=== PATIENT | male | born 1950 | race American Indian/Alaskan Native ===

== ENCOUNTER 2021-06-01 05:08 | Observation (INO) | payer MEDICARE ==
[2021-06-01] MEDS ORDERED: diphenhydrAMINE 50 MG/ML VIAL IV STA (05:39)
[2021-06-01] MEDS ORDERED: SODIUM CHLORIDE 0.9% 1000 ML 1,000 ML IV ONE (05:39)
[2021-06-01] MEDS ORDERED: FAMOTIDINE 20 MG/2 ML INJ IV ONE (05:39)
[2021-06-01] MEDS ORDERED: dexAMETHasone 4 MG/ML VIAL IV ONE (05:39)
--- NOTE | 2021-06-01 06:03 | Event Note ---
ED Screening Note ED Screening Note: 21-year-old [place]ian male [facility] emerge department complaining of waking up this morning with swelling to his left side of his tongue of unknown etiology. No odynophagia or dysphagia, no stridor no shortness of breath no wheezing, no lip swelling. Reports no known provocative factors to trigger the swelling but has had a history of angioedema in the past with no etiology over a year ago presents [facility] emerge department see treatments of the neck it is best to get the last time when he waited a considerable amount of time This initial assessment/diagnostic orders/clinical plan/treatment(s) is/are subject to change based on patients health status, clinical progression and re- assessment by fellow clinical providers in the ED. Further treatment and workup at subsequent clinical providers discretion. Patient/guardian urged not to elope from the ED as their condition may be serious if not clinically assessed and managed. Initial orders include: IV fluids and angioedema treat
--- NOTE | 2021-06-01 06:55 | Emergency Department Report ---
ED General Adult HPI - General Chief complaint: Allergic Reaction Stated complaint: POSS ALLERGIC REACTION PUI?: No Time Seen by Provider: 06/01/21 06:36 Source: patient, RN notes reviewed Mode of arrival: Ambulatory Limitations: No Limitations - History of Present Illness Initial comments: The patient was evaluated in the emergency department for symptoms described in the history of present illness. He/she was evaluated in the context of the global COVID-19 pandemic, which necessitated consideration that the patient might be at risk for infection with the virus that causes COVID-19. Institutional protocols and algorithms that pertain to the evaluation of patients at risk for COVID-19 are in a state of rapid change based on information released by regulatory bodies including the CDC and federal and state organizations. These policies and algorithms were followed during the patient's care in the emergency department. Please note that these policies, procedures and recommendations changed on a rapid basis. The patient is a 71-year-old gentleman. He has a history of hypertension and end-stage renal disease on hemodialysis. He does not know the name of his managing attorney. He is due for hemodialysis today. He presents to the ER today with a complaint of painless left-sided tongue swelling. This has been going on for a few hours. He reports having had this about a year ago. He does not know the name of his medications, but that he believes that he takes MONICO inhibitors. He denies additional injuries and complaints. He states that he feels like he is at his baseline. He reports that when he had this tongue swelling about a year ago, he does not recall receiving a specific diagnosis. He otherwise feels like he is at his baseline. He reports that he goes to [facility] dialysis on [facility] for hemodialysis, but he does not recall the name of his primary managing attorney. -: hour(s) Severity scale (0 -10): 0 Consistency: constant Improves with: none Worsens with: none Associated Symptoms: denies other symptoms - Related Data Allergies Allergy/AdvReac Type Severity Reaction Status Date / Time No Known Allergies Allergy Unverified 01/01/14 15:00 ED Review of Systems ROS: Stated complaint: POSS ALLERGIC REACTION Other details as noted in HPI Comment: All other systems reviewed and negative ED Past Medical Hx - Past Medical History Previous Medical History?: Yes Hx Hypertension: Yes Hx Renal Disease: Yes (ESRD HD MWF) - Surgical History Past Surgical History?: Yes Additional Surgical History: Dialysis Acess left arm ED Physical Exam - General Limitations: No Limitations General appearance: alert, in no apparent distress - Head Head exam: Present: atraumatic, normocephalic - Eye Eye exam: Present: normal appearance, EOMI. Absent: nystagmus - ENT ENT exam: Present: normal exam, normal orophraynx, mucous membranes moist, normal external ear exam, other (The patient is speaking full sentences. He is not stridulous. There is minimal swelling noted to the lateral aspect of the tongue.) - Neck Neck exam: Present: normal inspection, full ROM. Absent: tenderness, meningismus - Respiratory Respiratory exam: Present: normal lung sounds bilaterally. Absent: respiratory distress, wheezes, rales, rhonchi, stridor, decreased breath sounds - Cardiovascular Cardiovascular Exam: Present: regular rate, normal rhythm, normal heart sounds. Absent: bradycardia, tachycardia, irregular rhythm, systolic murmur, diastolic murmur, rubs, gallop - GI/Abdominal GI/Abdominal exam: Present: soft. Absent: distended, tenderness, guarding, rebound, rigid, pulsatile mass - Rectal Rectal exam: Present: deferred - Extremities Exam Extremities exam: Present: normal inspection, full ROM, other (2+ pulses noted in the bilateral upper extremities. There is a left upper extremity fistula noted, without redness, pus or streaking. An appropriate thrill is appreciated). Absent: calf tenderness - Back Exam Back exam: Present: normal inspection, full ROM. Absent: tenderness, CVA tenderness (R), CVA tenderness (L), paraspinal tenderness, vertebral tenderness - Neurological Exam Neurological exam: Present: alert, oriented X3, normal gait, other (No facial droop. Tongue midline. Extraocular movements intact bilaterally. Facial sensation intact to light touch in V1, V2, V3 distribution bilaterally. 5 and a 5 strength in 4 extremities. Sensation intact to light touch in 4 extremities.). Absent: motor sensory deficit - Psychiatric Psychiatric exam: Present: normal affect, normal mood - Skin Skin exam: Present: warm, dry, intact, normal color. Absent: rash ED Course Vital Signs 06/01/21 06/01/21 05:20 05:32 Temperature 98.2 F Pulse Rate 80 Respiratory 20 Rate Blood Pressure 179/48 146/44 [Right] O2 Sat by Pulse 98 Oximetry - Reevaluation(s) Reevaluation #1: 06/01/21 08:34 Differential diagnosis, including but not limited to: Angioedema, idiopathic versus MONICO inhibitor related, end-stage renal disease, hyperkalemia, azotemia and uremia Assessment and plan: 71-year-old gentleman with a complaint of painless left- sided tongue swelling. He has minimal lateral tongue swelling on my examination. He is phonating in complete sentences, and is not stridulous and protecting his airway. Uvula is midline, soft, and there does not appear to be other involvements in the oral structures. He was ordered for appropriate medications prior to my personal evaluation. Contacted his hemodialysis center ([facility] center in [place], [place] COVID-19 info: [id number] Located in: [facility] Address: [address] [place] [address] Hours: Open ? Closes 7PM ) They report his managing attorney is Dr. Mata, who does not currently have privileges at this hospital. We have reached out to our dialysis team construction stonemason. We anticipate admitting this patient to the medical service for treatment of hyperkalemia, and observation for angioedema of the tongue. Awaiting callback from nephrology 06/01/21 08:58 Discussed the patient's history, physical, laboratory studies and clinical impression with nephrology on-call, Dr. Zarate. She will follow in consultation and arrange for hemodialysis. Hospital physician, Dr. Brannon Berrios to admit to [facility] ED Medical Decision Making - Lab Data Result diagrams: 06/01/21 07:00 06/01/21 07:00 Vital Signs 06/01/21 06/01/21 05:20 05:32 Temperature 98.2 F Pulse Rate 80 Respiratory 20 Rate Blood Pressure 179/48 146/44 [Right] O2 Sat by Pulse 98 Oximetry Lab Results 06/01/21 06/01/21 Range/Units 07:00 07:00 WBC 6.2 (4.5-11.0) K/mm3 RBC 3.25 L (3.65-5.03) M/mm3 Hgb 9.9 L (11.8-15.2) gm/dl Hct 31.1 L (35.5-45.6) % MCV 96 H (84-94) fl MCH 31 (28-32) pg MCHC 32 (32-34) % RDW 15.3 H (13.2-15.2) % Plt Count 355 (140-440) K/mm3 Sodium 140 (137-145) mmol/L Potassium 6.3 H* (3.6-5.0) mmol/L Chloride 101.9 (98-107) mmol/L Carbon Dioxide 20 L (22-30) mmol/L Anion Gap 24 mmol/L BUN 52 H (9-20) mg/dL Creatinine 12.0 H (0.8-1.3) mg/dL Estimated GFR 5 ml/min BUN/Creatinine Ratio 4 % Glucose 84 (75-100) mg/dL Calcium 8.0 L (8.4-10.2) mg/dL - EKG Data -: EKG Interpreted by Sd EKG shows normal: sinus rhythm - EKG Data 06/01/21 09:10 The EKG is interpreted at 08: 48 Sinus rhythm, rate 60 bpm. Normal axis, normal P wave axis, poor R wave progression, symmetric peaked T waves V2 V3, first-degree AV block, high left v entricular voltage left ventricular hypertrophy. Abnormal EKG. Not a STEMI. - Radiology Data Radiology results: report reviewed, image reviewed CHEST 1 VIEW INDICATION: esrd tongue swollen. COMPARISON: None FINDINGS: Support devices: None. Heart: Within normal limits. Lungs/Pleura: No acute air space or interstitial disease. No pleural abnormality or pneumothorax. Additional findings: None. IMPRESSION: No acute findings. Signer Name: Trevor Stewart Jr, MD Signed: 06/01/2021 6:31 AM Workstation Name: [id number] Critical care attestation.: If time is entered above; I have spent that time in minutes in the direct care of this critically ill patient, excluding procedure time. ED Disposition Clinical Impression: ESRD (end stage renal disease), Hyperkalemia, Angioedema, HTN (hypertension), Uremia Disposition: ADMITTED INPATIENT Is pt being admited?: Yes Does the pt Need Aspirin: No Condition: Good Instructions: Hypertension (ED) Referrals: PRIMARY CARE, [Primary Care Provider] - 3-5 Days
[2021-06-01 07:28] LABS: Hematocrit 31.1 % (35.5-45.6); Hemoglobin 9.9 gm/dl (11.8-15.2); Mean Corpuscular HGB Conc 32 % (32-34); Mean Corpuscular Volume 96 fl (84-94); Platelet Count 355 K/mm3 (140-440); Red Blood Count 3.25 M/mm3 (3.65-5.03); Red Cell Distribution Width 15.3 % (13.2-15.2)
--- NOTE | 2021-06-01 07:35 | XRay Report ---
CHEST 1 VIEW INDICATION: esrd tongue swollen. COMPARISON: None FINDINGS: Support devices: None. Heart: Within normal limits. Lungs/Pleura: No acute air space or interstitial disease. No pleural abnormality or pneumothorax. Additional findings: None. IMPRESSION: No acute findings. Signer Name: Trevor Stewart Jr, MD Signed: 06/01/2021 7:31 AM Workstation Name: [id number]
[2021-06-01] MEDS ORDERED: SODIUM CHLORIDE 0.9% 100 ML IV PRN (09:00)
[2021-06-01] MEDS ORDERED: CALCIUM GLUCONATE 1,000 MG in SODIUM CHLORIDE 0.9% 100 ML IV ONE (09:10)
[2021-06-01] MEDS ORDERED: INSULIN REGULAR, HUMAN 100 UNITS/1 ML IV ONE (09:11)
[2021-06-01] MEDS ORDERED: DEXTROSE 10% *Hypoglycemia IV STA (09:11)
[2021-06-01] MEDS ORDERED: NALOXONE 0.4 MG/1 ML INJ IV PRN (10:00)
[2021-06-01] MEDS ORDERED: ONDANSETRON 4 MG/2 ML INJ IV PRN (10:00)
[2021-06-01] MEDS ORDERED: ACETAMINOPHEN 325 MG TAB PO PRN (10:00)
[2021-06-01] MEDS ORDERED: oxyCODONE /ACETAMINOPHEN 5-325MG TAB PO PRN (10:00)
[2021-06-01] MEDS ORDERED: CALC GLUCONATE 1GM/NS 100 ML 1 GM/100 ML BAG IV ONE (11:00)
[2021-06-01] MEDS ORDERED: ALBUTEROL 2.5 MG/3 ML NEBU IH PRN (11:00)
[2021-06-01] MEDS ORDERED: diphenhydrAMINE 25 MG CAP PO PRN (11:43)
--- NOTE | 2021-06-01 11:55 | History and Physical Report ---
History of Present Illness Date of examination: 06/01/21 Date of admission: 06/01/21 08:52 Chief complaint: Tongue swelling History of present illness: Patient is a 71-year-old male with past medical history of hypertension, end- stage renal disease on hemodialysis prior history of angioedema of the tongue who presents to the ER today with complaint of painless left-sided tongue swelling. He said it had been going on for a few hours. He reports having had this about a year ago. He does not know the name of his medications, but that he believes that he takes MONICO inhibitors. He denies additional injuries and complaints. He states that he feels like he is at his baseline. He reports that when he had this tongue swelling about a year ago, he does not recall receiving a specific diagnosis. He otherwise feels like he is at his baseline. 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 Past History Past Medical History: ESRD, hyperlipidemia Past Surgical History: Other (fistula) Social history: no significant social history Family history: no significant family history Medications and Allergies Allergies Allergy/AdvReac Type Severity Reaction Status Date / Time No Known Allergies Allergy Unverified 01/01/14 15:00 Active Meds: Active Medications Acetaminophen (Acetaminophen 325 Mg Tab) 650 mg PO Q4H PRN PRN Reason: Pain MILD(1-3)/Fever >100.5/CARREON Albuterol (Albuterol 2.5 Mg/3 Ml Nebu) 2.5 mg IH Q3HRT PRN PRN Reason: Shortness Of Breath Diphenhydramine HCl (Diphenhydramine 25 Mg Cap) 25 mg PO Q6H PRN PRN Reason: Itching Famotidine (Famotidine 20 Mg/2 Ml Inj) 20 mg IV QDAY MAMIE Sodium Chloride (Nacl 0.9%) 100 mls @ 999 mls/hr IV RADHA PRN PRN Reason: Hypotension Naloxone HCl (Naloxone 0.4 Mg/1 Ml Inj) 0.1 mg IV Q2MIN PRN PRN Reason: Res Rate </= 8 or 02 SAT < 92% Ondansetron HCl (Ondansetron 4 Mg/2 Ml Inj) 4 mg IV Q8H PRN PRN Reason: Nausea And Vomiting Oxycodone/Acetaminophen (Oxycodone /Acetaminophen 5-325mg Tab) 1 tab PO Q6H PRN PRN Reason: Pain, Moderate (4-6) Prednisone (Prednisone 20 Mg Tab) 20 mg PO QDAY MAMIE Senna (Sennosides 8.6 Mg Tab) 8.6 mg PO Q12HR MAMIE Sodium Chloride (Sodium Chloride 0.9% 10 Ml Flush Syringe) 10 ml IV BID MAMIE Sodium Chloride (Sodium Chloride 0.9% 10 Ml Flush Syringe) 10 ml IV PRN PRN PRN Reason: LINE FLUSH Review of Systems All systems: negative Ears, nose, mouth and throat: swelling in throat Cardiovascular: no chest pain, no orthopnea, no palpitations, no rapid/irregular heart beat, no edema, no syncope, no lightheadedness, no shortness of breath Respiratory: no shortness of breath, no dyspnea on exertion Exam - Physical Exam Narrative exam: VITAL SIGNS: Reviewed. GENERAL: The patient appears normally developed, missing dentition vital signs as documented. HEAD: No signs of head trauma. EYES: Pupils are equal. Extraocular motions intact. EARS: Hearing grossly intact. MOUTH: Oropharynx is normal. NECK: No adenopathy, no JVD. CHEST: Chest with clear breath sounds bilaterally. No wheezes, rales, or rhonchi. CARDIAC: Regular rate and rhythm. S1 and S2, without murmurs, gallops, or rubs. VASCULAR: No Edema. Peripheral pulses normal and equal in all extremities. ABDOMEN: Soft, non tender and non distended. No rebound or guarding, and no masses palpated. Bowel Sounds normal. MUSCULOSKELETAL: Good range of motion of all major joints. Extremities without clubbing, cyanosis or edema. NEUROLOGIC EXAM: Alert and oriented x 3 No focal sensory or strength deficits. Speech normal. Follows commands. PSYCHIATRIC: Mood normal. SKIN: detail exam as documented in skin assessment - Constitutional Vitals: Temp Pulse Resp BP Pulse Ox 98.2 F 80 20 146/44 98 06/01/21 05:20 06/01/21 05:20 06/01/21 05:20 06/01/21 05:32 06/01/21 05:20 Results - Labs CBC & Chem 7: 06/01/21 07:00 06/01/21 07:00 Labs: Laboratory Last Values WBC 6.2 K/mm3 (4.5-11.0) 06/01/21 07:00 RBC 3.25 M/mm3 (3.65-5.03) L 06/01/21 07:00 Hgb 9.9 gm/dl (11.8-15.2) L 06/01/21 07:00 Hct 31.1 % (35.5-45.6) L 06/01/21 07:00 MCV 96 fl (84-94) H 06/01/21 07:00 MCH 31 pg (28-32) 06/01/21 07:00 MCHC 32 % (32-34) 06/01/21 07:00 RDW 15.3 % (13.2-15.2) H 06/01/21 07:00 Plt Count 355 K/mm3 (140-440) 06/01/21 07:00 Sodium 140 mmol/L (137-145) 06/01/21 07:00 Potassium 6.3 mmol/L (3.6-5.0) H* 06/01/21 07:00 Chloride 101.9 mmol/L (98-107) 06/01/21 07:00 Carbon Dioxide 20 mmol/L (22-30) L 06/01/21 07:00 Anion Gap 24 mmol/L 06/01/21 07:00 BUN 52 mg/dL (9-20) H 06/01/21 07:00 Creatinine 12.0 mg/dL (0.8-1.3) H 06/01/21 07:00 Estimated GFR 5 ml/min 06/01/21 07:00 BUN/Creatinine Ratio 4 % 06/01/21 07:00 Glucose 84 mg/dL (75-100) 06/01/21 07:00 POC Glucose 87 mg/dL (70-105) 06/01/21 09:50 Calcium 8.0 mg/dL (8.4-10.2) L 06/01/21 07:00 Assessment and Plan Assessment and plan: Patient is a 71-year-old male with past medical history of hypertension, end- stage renal disease on hemodialysis prior history of angioedema of the tongue who presents to the ER today with complaint of painless left-sided tongue swelling. He said it had been going on for a few hours. He reports having had this about a year ago. He does not know the name of his medications, but that he believes that he takes MONICO inhibitors. He however had no stridor and is able to maintain his airway He denies additional injuries and complaints. He states that he feels like he is at his baseline. He reports that when he had this tongue swelling about a year ago, he does not recall receiving a specific diagnosis. He otherwise feels like he is at his baseline. 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 Angioedema of the tongue likely related to MONICO inhibitor versus idiopathic source End-stage renal disease with hyperkalemia Azotemia and uremia Metabolic acidosis Anemia of chronic disease Plan Admit to MedSurg Continue H2 good, Benadryl as needed and daily prednisone Reevaluate for complete resolution of tongue swelling which is close to his baseline Repeat BMP to evaluate resolution of hyperkalemia following dialysis If improves will discharge in 24 hours Counseling provided to the patient about MONICO inhibitor and likely need to change to other medications. Blood pressure is better controlled at this time although I do not have a list of his home medication he does not recall them the nurse will get the list and will be able to reconcile his medications. Advance Directives: Yes Plan of care discussed with patient/family: Yes
--- NOTE | 2021-06-01 12:46 | Consultation ---
History of Present Illness - Reason for Consult Consult date: 06/01/21 end stage renal disease - History of Present Illness Mr. Loco is a 71yo with ESRD on HD MWF, hypertension who presented to the ED with swelling of tongue. He reports that symptoms began early AM. He denies SOB, difficutly swallowing. He reports prior episode resulting in hospitalization Past History Past Medical History: ESRD, hyperlipidemia Past Surgical History: Other (fistula) Social history: no significant social history Family history: no significant family history Medications and Allergies Allergies Allergy/AdvReac Type Severity Reaction Status Date / Time No Known Allergies Allergy Unverified 01/01/14 15:00 Home Medications Medication Instructions Recorded Confirmed Last Taken Type NIFEdipine [Nifedipine ER] 90 mg PO DAILY 06/01/21 06/01/21 05/31/21 08:00 History Tamsulosin [Flomax] 0.4 mg PO DAILY 06/01/21 06/01/21 05/31/21 08:00 History hydrALAZINE [Apresoline TAB] 100 mg PO TID 06/01/21 06/01/21 05/31/21 14:00 History oxyCODONE /ACETAMINOPHEN [Percocet 1 tab PO Q6HR PRN 06/01/21 06/01/21 05/31/21 08:00 History 5/325] sevelamer HCL [Sevelamer HCl] 800 mg PO TIDAC 06/01/21 06/01/21 05/31/21 14:00 History Active Meds: Active Medications Acetaminophen (Acetaminophen 325 Mg Tab) 650 mg PO Q4H PRN PRN Reason: Pain MILD(1-3)/Fever >100.5/CARREON Albuterol (Albuterol 2.5 Mg/3 Ml Nebu) 2.5 mg IH Q3HRT PRN PRN Reason: Shortness Of Breath Diphenhydramine HCl (Diphenhydramine 25 Mg Cap) 25 mg PO Q6H PRN PRN Reason: Itching Famotidine (Famotidine 20 Mg/2 Ml Inj) 20 mg IV QDAY MAMIE Sodium Chloride (Nacl 0.9%) 100 mls @ 999 mls/hr IV RADHA PRN PRN Reason: Hypotension Naloxone HCl (Naloxone 0.4 Mg/1 Ml Inj) 0.1 mg IV Q2MIN PRN PRN Reason: Res Rate </= 8 or 02 SAT < 92% Ondansetron HCl (Ondansetron 4 Mg/2 Ml Inj) 4 mg IV Q8H PRN PRN Reason: Nausea And Vomiting Oxycodone/Acetaminophen (Oxycodone /Acetaminophen 5-325mg Tab) 1 tab PO Q6H PRN PRN Reason: Pain, Moderate (4-6) Prednisone (Prednisone 20 Mg Tab) 20 mg PO QDAY MAMIE Senna (Sennosides 8.6 Mg Tab) 8.6 mg PO Q12HR MAMIE Sodium Chloride (Sodium Chloride 0.9% 10 Ml Flush Syringe) 10 ml IV BID MAMIE Sodium Chloride (Sodium Chloride 0.9% 10 Ml Flush Syringe) 10 ml IV PRN PRN PRN Reason: LINE FLUSH Review of Systems All systems: negative Exam - Vital Signs Vital signs: Vital Signs Temp Pulse Resp BP Pulse Ox 98.2 F 80 20 179/48 98 06/01/21 05:20 06/01/21 05:20 06/01/21 05:20 06/01/21 05:20 06/01/21 05:20 - General Appearance General appearance: well-developed, well-nourished EENT: ATNC Heart: regular, S1S2 Gastrointestinal: Present: normal Integumentary: no rash, warm and dry Neurologic: alert and oriented x3 Results - Lab Results 06/02/21 04:09 06/02/21 04:09 Most recent lab results Calcium 8.0 mg/dL (8.4-10.2) L 06/01/21 07:00 Assessment and Plan Impression: * End stage renal disease * Angioedema * Hypertension * Anemia secondary to ESRD * Secondary hyperparathyroidism Plan: * Hemodialysis today * UF as tolerated * Continue MWF schedule * Management of angioedema per primary team * Patient advised to avoid future use of ACEi * Dose medications for renal function * Avoid future nephrotoxins * AM labs
[2021-06-01 13:15] LABS: Calcium 7.8 mg/dL (8.4-10.2)
[2021-06-01] MEDS: SENNOSIDES 8.6 MG TAB PO SCH ×2 (13:32→23:22)
[2021-06-01] MEDS: predniSONE 20 MG TAB PO SCH (17:08)
[2021-06-01] MEDS: FAMOTIDINE 20 MG/2 ML INJ IV SCH (17:08)
[2021-06-01] MEDS: amLODIPine 10 MG TAB PO SCH (17:08)
[2021-06-01 18:36] LABS: Calcium 7.9 mg/dL (8.4-10.2)
[2021-06-01] MEDS: NIFEdipine XL 90 MG TAB PO SCH (21:25)
[2021-06-01 22:42] LABS: Hepatitis B Surface Antigen Non-Reactive (Negative); Hepatitis C Virus Antibody Non-Reactive (NonReactive)
[2021-06-01] MEDS: hydrALAZINE 100 MG TAB PO SCH (23:23)
[2021-06-02 04:48] LABS: Basophils % (Auto) 0.3 % (0.0-1.8); Eosinophils % (Auto) 0.1 % (0.0-4.3); Hematocrit 29.4 % (35.5-45.6); Hemoglobin 9.4 gm/dl (11.8-15.2); Lymphocytes % (Auto) 14.4 % (13.4-35.0); Mean Corpuscular HGB Conc 32 % (32-34); Mean Corpuscular Volume 95 fl (84-94); Monocytes # (Auto) 0.4 K/mm3 (0.0-0.8); Monocytes % (Auto) 5.9 % (0.0-7.3); Platelet Count 299 K/mm3 (140-440); Red Blood Count 3.09 M/mm3 (3.65-5.03); Red Cell Distribution Width 15.2 % (13.2-15.2)
[2021-06-02 05:03] LABS: Calcium 8.4 mg/dL (8.4-10.2)
[2021-06-02 06:20] VITALS: BP 160/57
[2021-06-02] MEDS ORDERED: SEVELAMER CARBONATE 800 MG TAB PO SCH (07:30)
--- NOTE | 2021-06-02 07:48 | Discharge Summary ---
Providers - Providers Date of Admission: 06/01/21 08:52 Attending physician: BALBIR MENON MD 06/01/21 Consult to Case Management [CONS] Routine Services Needed at Discharge: Delivery Stock Clerk Notified:: NO 06/01/21 08:15 Consult to Physician [CONS] Urgent Comment: Consulting Provider: WALT THOMAS Physician Instructions: Reason For Exam: esrd hyperkalemia 06/01/21 08:54 Consult to Dietitian/Nutrition [CONS] Routine Physician Instructions: Reason For Exam: Reason for Consult: Diet education Primary care physician: HAND WINDER Hospitalization Condition: Good Exam - Constitutional Vitals: Temp Pulse Resp BP Pulse Ox 97.7 F 69 20 160/57 97 06/02/21 06:20 06/02/21 06:20 06/02/21 06:20 06/02/21 06:20 06/02/21 06:20 Plan Care Plan Goals: Please follow-up with your primary care doctor. Stop taking MONICO inhibitor (ex: lisinopril, captopril). Please let your PCP know and this drug should now be listed as an allergy. Assessment: Patient presented with angioedema. Swelling resolved after steroids, Benadryl and H2 good. Also incidentally found to have hyperkalemia which improved after dialysis. Was stable patient discharged home. Follow up with: PRIMARY CARE, [Primary Care Provider] - 3-5 Days Prescriptions: diphenhydrAMINE [Benadryl CAP] 25 mg PO Q6H PRN 3 Days #12 capsule PRN Reason: Itching predniSONE [Deltasone] 20 mg PO QDAY 3 Days #3 tablet
[2021-06-02] MEDS ORDERED: SODIUM POLYSTYRENE 15 GM/60 ML ORAL LIQD PO NR (08:00)
[2021-06-02] MEDS: amLODIPine 10 MG TAB PO SCH (09:34)
[2021-06-02] MEDS: FAMOTIDINE 20 MG/2 ML INJ IV SCH (09:34)
[2021-06-02] MEDS: SENNOSIDES 8.6 MG TAB PO SCH (09:34)
[2021-06-02] MEDS: NIFEdipine XL 90 MG TAB PO SCH (09:34)
[2021-06-02] MEDS: predniSONE 20 MG TAB PO SCH (09:34)
[2021-06-02] MEDS: hydrALAZINE 100 MG TAB PO SCH (09:35)
--- NOTE | 2021-06-02 09:38 | Progress Note ---
Assessment and Plan Impression: * End stage renal disease * Angioedema * Hypertension * Anemia secondary to ESRD * Secondary hyperparathyroidism Plan: * No acute need for HD today * Continue MWF schedule * Management of angioedema per primary team * Patient advised to avoid future use of ACEi * Dose medications for renal function * Avoid future nephrotoxins * Stable for discharge from a renal standpoint Subjective Date of service: 06/02/21 Objective - Vital Signs Vital signs: Vital Signs - 12hr 06/01/21 06/01/21 06/01/21 22:00 23:19 23:21 Temperature 98.3 F Pulse Rate 71 Respiratory 18 Rate Blood Pressure 165/50 O2 Sat by Pulse 96 99 Oximetry 06/02/21 06:20 Temperature 97.7 F Pulse Rate 69 Respiratory 20 Rate Blood Pressure 160/57 O2 Sat by Pulse 97 Oximetry - Lab 06/02/21 04:09 06/02/21 04:09 Most recent lab results Calcium 8.4 mg/dL (8.4-10.2) 06/02/21 04:09 Medications & Allergies - Medications Allergies/Adverse Reactions: Allergies No Known Allergies Allergy (Unverified 01/01/14 15:00) Home Medications: Home Medications Medication Instructions Recorded Confirmed Last Taken Type NIFEdipine [Nifedipine ER] 90 mg PO DAILY 06/01/21 06/01/21 05/31/21 08:00 History Tamsulosin [Flomax] 0.4 mg PO DAILY 06/01/21 06/01/21 05/31/21 08:00 History hydrALAZINE [Apresoline TAB] 100 mg PO TID 06/01/21 06/01/21 05/31/21 14:00 History oxyCODONE /ACETAMINOPHEN [Percocet 1 tab PO Q6HR PRN 06/01/21 06/01/21 05/31/21 08:00 History 5/325 mg] sevelamer HCL [Sevelamer HCl] 800 mg PO TIDAC 06/01/21 06/01/21 05/31/21 14:00 History diphenhydrAMINE [Benadryl CAP] 25 mg PO Q6H PRN 3 Days #12 capsule 06/02/21 Unknown Rx predniSONE [Deltasone] 20 mg PO QDAY 3 Days #3 tablet 06/02/21 Unknown Rx Active Medications: Generic Name Dose Route Start Last Admin Trade Name Freq PRN Reason Stop Dose Admin Acetaminophen 650 mg 06/01/21 10:00 Acetaminophen 325 Mg Tab PO Q4H PRN Pain MILD(1-3)/Fever >100.5/CARREON Albuterol 2.5 mg 06/01/21 11:00 Albuterol 2.5 Mg/3 Ml Nebu IH Q3HRT PRN Shortness Of Breath Amlodipine Besylate 10 mg 06/01/21 17:00 06/02/21 09:34 Amlodipine 10 Mg Tab PO 10 mg QDAY MAMIE Administration Diphenhydramine HCl 25 mg 06/01/21 11:43 Diphenhydramine 25 Mg Cap PO Q6H PRN Itching Famotidine 20 mg 06/01/21 13:00 06/02/21 09:34 Famotidine 20 Mg/2 Ml Inj IV 20 mg QDAY MAMIE Administration Hydralazine HCl 100 mg 06/01/21 22:00 06/02/21 09:35 Hydralazine 100 Mg Tab PO 100 mg TID MAMIE Administration Sodium Chloride 100 mls @ 999 mls/hr 06/01/21 09:00 Nacl 0.9% IV RADHA PRN Hypotension Naloxone HCl 0.1 mg 06/01/21 10:00 Naloxone 0.4 Mg/1 Ml Inj IV Q2MIN PRN Res Rate </= 8 or 02 SAT < 92% Nifedipine 90 mg 06/01/21 20:00 06/02/21 09:34 Nifedipine Xl 90 Mg Tab PO 90 mg QDAY MAMIE Administration Ondansetron HCl 4 mg 06/01/21 10:00 Ondansetron 4 Mg/2 Ml Inj IV Q8H PRN Nausea And Vomiting Oxycodone/Acetaminophen 1 tab 06/01/21 10:00 Oxycodone /Acetaminophen 5-325mg Tab PO Q6H PRN Pain, Moderate (4-6) Prednisone 20 mg 06/01/21 12:00 06/02/21 09:34 Prednisone 20 Mg Tab PO 20 mg QDAY MAMIE Administration Senna 8.6 mg 06/01/21 10:00 06/02/21 09:34 Sennosides 8.6 Mg Tab PO 8.6 mg Q12HR MAMIE Administration Sevelamer Carbonate 800 mg 06/02/21 07:30 06/02/21 09:34 Sevelamer Carbonate 800 Mg Tab PO 800 mg AC MAMIE Administration Sodium Chloride 10 ml 06/01/21 10:00 06/02/21 09:35 Sodium Chloride 0.9% 10 Ml Flush Syringe IV 10 ml BID MAMIE Administration Sodium Chloride 10 ml 06/01/21 10:00 Sodium Chloride 0.9% 10 Ml Flush Syringe IV PRN PRN LINE FLUSH Sodium Polystyrene Sulfonate 30 gm 06/02/21 08:00 06/02/21 09:33 Sodium Polystyrene 15 Gm/60 Ml Oral Liqd PO 06/02/21 12:00 30 gm ONCE@0800 NR Administration Tamsulosin HCl 0.4 mg 06/02/21 10:00 06/02/21 09:34 Tamsulosin 0.4 Mg Cap PO 0.4 mg QDAY MAMIE Administration
[2021-06-02] MEDS ORDERED: TAMSULOSIN 0.4 MG CAP PO SCH (10:00)
--- NOTE | 2021-06-02 13:16 | Electrocardiograph Report ---
[facility] Test Date: 2021-06-01 Test Time: 08:48:46 Pat Name: STEVEN RHODES JR Department: Room: A391 Gender: M Mds Rn: DOMENIC : 1950 Requested By: FAMILIA HENDRICKSON Order Number: [id number] Reading MD: Baltazar Carreno Measurements Intervals [place] Rate: 60 P: -18 MA: 253 QRS: 22 QRSD: 102 T: 4 QT: 457 QTc: 458 Interpretive Statements Sinus rhythm Prolonged MA interval No previous ECG available for comparison Electronically Signed On 06-02-2021 13:16:33 EST by Baltazar Carreno
== END 2021-06-02 11:55 | disposition home or self-care (01) ==
LOC: ED 05:08 → INTOOBSV 08:52 → 3A 08:52
PROVIDERS: ADMIT Internal Medicine; ATTEND Student in an Organized Health Care Education/Training Program
DX: T78.3XXA Angioneurotic edema, initial encounter (principal); I12.0 Hypertensive chronic kidney disease with stage 5 chronic kidney disease or end stage renal disease; N18.6 End stage renal disease; D63.1 Anemia in chronic kidney disease; E87.5 Hyperkalemia; R79.89 Other specified abnormal findings of blood chemistry; E87.2 Acidosis; E78.5 Hyperlipidemia, unspecified; N25.81 Secondary hyperparathyroidism of renal origin; Z79.899 Other long term (current) drug therapy; Z98.890 Other specified postprocedural states; Z99.2 Dependence on renal dialysis
CPT/HCPCS: 36415; 71045; 80048; 80074; 82962; 85025; 85027; 93005; 93010; 96361; 96374; 96375; 96376; 99285; G0378; J1100; J1200; J3490; J7030; Q0162; Q9967; J1815

== ENCOUNTER 2021-08-23 21:52 | Observation (INO) | payer MEDICARE ==
--- NOTE | 2021-08-23 22:53 | Emergency Department Report ---
ED Shortness of Breath HPI - General Chief Complaint: Dyspnea/Respdistress Stated Complaint: SHORT OF BREATH X 4 DAYS Time Seen by Provider: 08/23/21 22:40 Source: patient Mode of arrival: Ambulatory Limitations: No Limitations - History of Present Illness Initial Comments: 71-year-old male with history of end-stage renal disease currently on dialysis M , Sunday and who presents with shortness of breath has been going on for the last 4 days progressively getting worse. Patient denies any cough, fever, chest pain or palpitation. Patient has history of remote smoking and alcohol drink but has not had any in few years. No other modifying or associated factors reported. - Related Data Home Medications Medication Instructions Recorded Confirmed Last Taken NIFEdipine [Nifedipine ER] 90 mg PO DAILY 06/01/21 06/01/21 05/31/21 08:00 Tamsulosin [Flomax] 0.4 mg PO DAILY 06/01/21 06/01/21 05/31/21 08:00 hydrALAZINE [Apresoline TAB] 100 mg PO TID 06/01/21 06/01/21 05/31/21 14:00 oxyCODONE /ACETAMINOPHEN [Percocet 1 tab PO Q6HR PRN 06/01/21 06/01/21 05/31/21 08:00 5/325 mg] sevelamer HCL [Sevelamer HCl] 800 mg PO TIDAC 06/01/21 06/01/21 05/31/21 14:00 Previous Rx's Medication Instructions Recorded Last Taken Type diphenhydrAMINE [Benadryl CAP] 25 mg PO Q6H PRN 3 Days #12 capsule 06/02/21 Unknown Rx predniSONE [Deltasone] 20 mg PO QDAY 3 Days #3 tablet 06/02/21 Unknown Rx Allergies Allergy/AdvReac Type Severity Reaction Status Date / Time No Known Allergies Allergy Unverified 01/01/14 15:00 ED Review of Systems ROS: Stated complaint: SHORT OF BREATH X 4 DAYS Other details as noted in HPI Comment: All other systems reviewed and negative Respiratory: shortness of breath, SOB with exertion. denies: cough Cardiovascular: dyspnea on exertion. denies: chest pain, palpitations ED Past Medical Hx - Past Medical History Hx Hypertension: Yes Hx Congestive Heart Failure: Yes Hx Renal Disease: Yes (ESRD HD MWF) - Surgical History Additional Surgical History: Dialysis Acess left arm - Social History Smoking Status: Never Smoker - Medications Home Medications: Home Medications Medication Instructions Recorded Confirmed Last Taken Type NIFEdipine [Nifedipine ER] 90 mg PO DAILY 06/01/21 06/01/21 05/31/21 08:00 History Tamsulosin [Flomax] 0.4 mg PO DAILY 06/01/21 06/01/21 05/31/21 08:00 History hydrALAZINE [Apresoline TAB] 100 mg PO TID 06/01/21 06/01/21 05/31/21 14:00 History oxyCODONE /ACETAMINOPHEN [Percocet 1 tab PO Q6HR PRN 06/01/21 06/01/21 05/31/21 08:00 History 5/325 mg] sevelamer HCL [Sevelamer HCl] 800 mg PO TIDAC 06/01/21 06/01/21 05/31/21 14:00 History diphenhydrAMINE [Benadryl CAP] 25 mg PO Q6H PRN 3 Days #12 capsule 06/02/21 Unknown Rx predniSONE [Deltasone] 20 mg PO QDAY 3 Days #3 tablet 06/02/21 Unknown Rx ED Physical Exam - General Limitations: No Limitations General appearance: alert, in no apparent distress - Head Head exam: Present: normal inspection - Eye Eye exam: Present: normal appearance Pupils: Present: normal accommodation - ENT ENT exam: Present: normal exam, normal orophraynx, mucous membranes moist - Neck Neck exam: Present: normal inspection, full ROM. Absent: tenderness - Respiratory Respiratory exam: Present: normal lung sounds bilaterally. Absent: respiratory distress, accessory muscle use - Cardiovascular Cardiovascular Exam: Present: regular rate, normal rhythm, normal heart sounds - GI/Abdominal GI/Abdominal exam: Present: soft, normal bowel sounds. Absent: distended, tenderness - Extremities Exam Extremities exam: Present: normal inspection, full ROM, normal capillary refill - Back Exam Back exam: Present: normal inspection, full ROM. Absent: tenderness, CVA tenderness (R), CVA tenderness (L) - Neurological Exam Neurological exam: Present: alert, oriented X3 - Psychiatric Psychiatric exam: Present: normal affect, normal mood ED Course Vital Signs 08/23/21 08/24/21 08/24/21 22:01 01:06 01:16 Temperature 98.9 F Pulse Rate 78 64 Respiratory 16 23 Rate Blood Pressure 165/38 165/38 Blood Pressure 181/37 [Right] O2 Sat by Pulse 97 91 100 Oximetry 08/24/21 08/24/21 08/24/21 01:30 01:46 02:00 Temperature Pulse Rate 64 62 64 Respiratory 20 16 16 Rate Blood Pressure 165/38 165/38 152/35 Blood Pressure [Right] O2 Sat by Pulse 100 100 98 Oximetry 08/24/21 08/24/21 02:16 02:35 Temperature Pulse Rate 62 62 Respiratory 15 14 Rate Blood Pressure 152/35 Blood Pressure 152/35 [Right] O2 Sat by Pulse 98 98 Oximetry - Reevaluation(s) Reevaluation #1: 08/23/21 22:51 here with sob x 4 days -- considering this patient's age and comorbidity will go ahead and rule out cardiopulmonary abnormality-- by ordering cardiac enzyme with BNP, and other routine labs for any infectious process or electrolyte abnormality-- Reevaluation #2: 08/24/21 00:35 Noted with elevated BNP at 15,359 with BUN/Cr 73/14 and troponin 0.198 I do not believed this is cardiac but likely as a result of the patient ESRD but could be early CHF considering CXR with vascular congestion-- will admit patient for dialysis and serial troponin. Reevaluation #3: 08/24/21 00:51 Dr Zamorano consulted who accept pt for further evaluation and treatment ED Medical Decision Making - Lab Data Result diagrams: 08/23/21 23:05 08/23/21 23:05 - EKG Data -: EKG Interpreted by Nh EKG shows normal: sinus rhythm Rate: normal - EKG Data Interpretation: nonspecific ST-T wave alvin 08/24/21 00:46 Noted with normal sinus rhythm at a rate of 71 bpm with atrial premature complexes and nonspecific ST and T wave changes and this abnormal ECG. Critical care attestation.: If time is entered above; I have spent that time in minutes in the direct care of this critically ill patient, excluding procedure time. ED Disposition Clinical Impression: Shortness of breath, ESRD (end stage renal disease) Heart failure Qualifiers: Heart failure type: unspecified Heart failure chronicity: unspecified Qualified Code(s): I50.9 - Heart failure, unspecified Disposition: 09 ADMITTED INPATIENT Is pt being admited?: Yes Does the pt Need Aspirin: No Condition: Stable
[2021-08-23 23:30] LABS: Basophils # (Auto) 0.1 K/mm3 (0.0-0.1); Basophils % (Auto) 0.7 % (0.0-1.8); Eosinophils # (Auto) 0.3 K/mm3 (0.0-0.4); Eosinophils % (Auto) 3.3 % (0.0-4.3); Hematocrit 36.1 % (35.5-45.6); Hemoglobin 11.6 gm/dl (11.8-15.2); Lymphocytes # (Auto) 1.8 K/mm3 (1.2-5.4); Lymphocytes % (Auto) 19.9 % (13.4-35.0); Mean Corpuscular HGB Conc 32 % (32-34); Mean Corpuscular Volume 91 fl (84-94); Monocytes # (Auto) 0.8 K/mm3 (0.0-0.8); Monocytes % (Auto) 8.6 % (0.0-7.3); Platelet Count 351 K/mm3 (140-440); Red Blood Count 3.99 M/mm3 (3.65-5.03); Red Cell Distribution Width 15.8 % (13.2-15.2)
[2021-08-23 23:44] LABS: INR 0.94 (0.87-1.13)
[2021-08-23 23:45] LABS: Partial Thromboplastin Time 28.1 Sec. (24.2-36.6)
[2021-08-23 23:56] LABS: Albumin 3.6 g/dL (3.9-5)
[2021-08-24 00:34] LABS: Bilirubin,Urine NEG (Negative); Blood,Urine SM (Negative); Color,Urine Yellow (Yellow); Urobilinogen,Urine < 2.0 mg/dL (<2.0)
[2021-08-24] MEDS ORDERED: ONDANSETRON 4 MG/2 ML INJ IV PRN ×2 (00:52→01:04)
[2021-08-24] MEDS ORDERED: ACETAMINOPHEN 325 MG TAB PO PRN ×2 (00:52→01:04)
[2021-08-24] MEDS ORDERED: MORPHINE 2 MG/1 ML INJ IV PRN ×2 (00:52→01:04)
[2021-08-24] MEDS ORDERED: MORPHINE 4 MG/1 ML INJ IV PRN (01:04)
[2021-08-24] MEDS ORDERED: MAGNESIUM HYDROXIDE (MOM) ORAL LIQD UDC PO PRN (01:04)
--- NOTE | 2021-08-24 01:22 | History and Physical Report ---
History of Present Illness Date of examination: 08/24/21 Date of admission: 08/24/2021 Chief complaint: Shortness of Breath History of present illness: 71-year-old -[place]ian male with known history of end-stage renal disease on dialysis on Mondays, Wednesdays and Fridays presenting to the emergency room today complaining of shortness of breath which has been ongoing for the past 3 to 4 days. Shortness of breath is said to be getting progressively worse. He denies any chest pain, no cough, no fever or chills, no headache or dizziness and no diaphoresis. Patient has been compliant with his dialysis. Work-up in the emergency room today, lab reveals potassium of 5.4, BUN of 73 and creatinine of 14, troponin of 0.198, BNP of 15,359. Urinalysis significant for mild UTI. Chest x-ray shows mild pulmonary vascular congestion. Past History Past Medical History: dialysis, ESRD, heart failure, hypertension Past Surgical History: Other (Left arm dialysis access.) Social history: no significant social history Family history: no significant family history Medications and Allergies Allergies Allergy/AdvReac Type Severity Reaction Status Date / Time No Known Allergies Allergy Unverified 01/01/14 15:00 Home Medications Medication Instructions Recorded Confirmed Last Taken Type NIFEdipine [Nifedipine ER] 90 mg PO DAILY 06/01/21 06/01/21 05/31/21 08:00 History Tamsulosin [Flomax] 0.4 mg PO DAILY 06/01/21 06/01/21 05/31/21 08:00 History hydrALAZINE [Apresoline TAB] 100 mg PO TID 06/01/21 06/01/21 05/31/21 14:00 History oxyCODONE /ACETAMINOPHEN [Percocet 1 tab PO Q6HR PRN 06/01/21 06/01/21 05/31/21 08:00 History 5/325 mg] sevelamer HCL [Sevelamer HCl] 800 mg PO TIDAC 06/01/21 06/01/21 05/31/21 14:00 History diphenhydrAMINE [Benadryl CAP] 25 mg PO Q6H PRN 3 Days #12 capsule 06/02/21 Unknown Rx predniSONE [Deltasone] 20 mg PO QDAY 3 Days #3 tablet 06/02/21 Unknown Rx Active Meds: Active Medications Acetaminophen (Acetaminophen 325 Mg Tab) 650 mg PO Q4H PRN PRN Reason: Pain MILD(1-3)/Fever >100.5/CARREON Acetaminophen (Acetaminophen 325 Mg Tab) 650 mg PO Q4H PRN PRN Reason: Pain MILD(1-3)/Fever >100.5/CARREON Magnesium Hydroxide (Magnesium Hydroxide (Mom) Oral Liqd Udc) 30 ml PO Q4H PRN PRN Reason: Constipation Morphine Sulfate (Morphine 2 Mg/1 Ml Inj) 2 mg IV Q4H PRN PRN Reason: Pain, Moderate (4-6) Morphine Sulfate (Morphine 2 Mg/1 Ml Inj) 2 mg IV Q4H PRN PRN Reason: Pain, Moderate (4-6) Morphine Sulfate (Morphine 4 Mg/1 Ml Inj) 4 mg IV Q4H PRN PRN Reason: Pain , Severe (7-10) Ondansetron HCl (Ondansetron 4 Mg/2 Ml Inj) 4 mg IV Q8H PRN PRN Reason: Nausea And Vomiting Ondansetron HCl (Ondansetron 4 Mg/2 Ml Inj) 4 mg IV Q8H PRN PRN Reason: Nausea And Vomiting Sodium Chloride (Sodium Chloride 0.9% 10 Ml Flush Syringe) 10 ml IV BID MAMIE Sodium Chloride (Sodium Chloride 0.9% 10 Ml Flush Syringe) 10 ml IV PRN PRN PRN Reason: LINE FLUSH Sodium Chloride (Sodium Chloride 0.9% 10 Ml Flush Syringe) 10 ml IV BID MAMIE Sodium Chloride (Sodium Chloride 0.9% 10 Ml Flush Syringe) 10 ml IV PRN PRN PRN Reason: LINE FLUSH Review of Systems Constitutional: no fever, no chills Ears, nose, mouth and throat: no nasal congestion, no sore throat Cardiovascular: no chest pain, no orthopnea, no palpitations Respiratory: shortness of breath, no cough, no wheezing Genitourinary Male: no dysuria, no hematuria, no flank pain, no nocturia Musculoskeletal: no neck pain, no low back pain Integumentary: no rash, no pruritis Neurological: no headaches, no confusion Exam - Constitutional Vitals: Temp Pulse Resp BP Pulse Ox 98.9 F 78 16 181/37 97 08/23/21 22:01 08/23/21 22:01 08/23/21 22:01 08/23/21 22:01 08/23/21 22:01 General appearance: Present: no acute distress, well-nourished, obese - EENT Eyes: Present: PERRL, EOM intact. Absent: scleral icterus ENT: hearing intact, clear oral mucosa, dentition normal - Neck Neck: Present: supple, normal ROM - Respiratory Respiratory effort: normal Respiratory: bilateral: diminished - Cardiovascular Rhythm: regular Heart Sounds: Present: S1 & S2. Absent: gallop, systolic murmur, diastolic murmur, rub, click - Extremities Extremities: no ischemia, pulses intact, pulses symmetrical, No edema, normal temperature, normal color, Full ROM Peripheral Pulses: within normal limits - Abdominal General gastrointestinal: Present: soft, non-tender, non-distended, normal bowel sounds. Absent: mass - Integumentary Integumentary: Present: clear, warm, dry, normal turgor. Absent: rash - Musculoskeletal Musculoskeletal: strength equal bilaterally - Psychiatric Psychiatric: appropriate mood/affect, intact judgment & insight, memory intact, cooperative - Neurologic Neurologic: CNII-XII intact, no focal deficits, moves all extremities HEART Score - HEART Score Troponin: Troponin T 0.198 ng/mL (0.00-0.029) H* 08/23/21 23:05 Results - Labs CBC & Chem 7: 08/23/21 23:05 08/23/21 23:05 Labs: Abnormal lab results 08/23/21 08/23/21 08/24/21 Range/Units 23:05 23:05 00:24 Hgb 11.6 L (11.8-15.2) gm/dl RDW 15.8 H (13.2-15.2) % [place] % (Auto) 8.6 H (0.0-7.3) % Potassium 5.4 H (3.6-5.0) mmol/L Carbon Dioxide 19 L (22-30) mmol/L BUN 73 H (9-20) mg/dL Creatinine 14.0 H (0.8-1.3) mg/dL Calcium 8.0 L (8.4-10.2) mg/dL Troponin T 0.198 H* (0.00-0.029) ng/mL NT-Pro-B Natriuret Pep 15713 H (0-900) pg/mL Albumin 3.6 L (3.9-5) g/dL Urine WBC (Auto) 68.0 H (0.0-6.0) /HPF Assessment and Plan - Patient Problems (1) ESRD (end stage renal disease) Current Visit: Yes Status: Acute Plan to address problem: Patient on dialysis on Mondays, Wednesdays and Fridays. Will place consult to nephrology for evaluation. (2) HTN (hypertension) Current Visit: No Status: Acute Plan to address problem: Resume routine home medications and monitor vital signs closely. (3) Hyperkalemia Current Visit: No Status: Acute Plan to address problem: Secondary to the end-stage renal disease. Patient will be given Kayexalate. Will monitor potassium levels and also monitor EKG. (4) Uremia Current Visit: No Status: Acute Plan to address problem: Secondary to the end-stage renal disease. Will await dialysis. Will monitor chemistry. (5) Elevated troponin Current Visit: Yes Status: Acute Plan to address problem: Possibly secondary to the end-stage renal disease. Patient has denied any chest pain. We will trend troponin levels. We will request cardiology input. (6) UTI (urinary tract infection) Current Visit: Yes Status: Acute Plan to address problem: Will place on empiric IV antibiotics. (7) DVT prophylaxis Current Visit: Yes Status: Acute Plan to address problem: Patient placed on subcutaneous heparin. (8) Full code status Current Visit: Yes Status: Acute Plan to address problem: Patient is full code.
[2021-08-24 02:48] LABS: Chol/HDL Ratio 4.66 %
[2021-08-24] MEDS ORDERED: cefTRIAXone/NS 1 GM/50 ML 1 GM/50 ML BAG IV SCH (05:00)
[2021-08-24] MEDS ORDERED: SODIUM POLYSTYRENE 15 GM/60 ML ORAL LIQD PO ONE (05:02)
--- NOTE | 2021-08-24 06:45 | XRay Report ---
CHEST 1 VIEW 08/24/2021 5:34 AM INDICATION / CLINICAL INFORMATION: sob. COMPARISON: 06/01/2021 FINDINGS: SUPPORT DEVICES: None. HEART / MEDIASTINUM: No significant abnormality. LUNGS / PLEURA: No significant pulmonary or pleural abnormality. No pneumothorax. ADDITIONAL FINDINGS: No significant additional findings. IMPRESSION: 1. No acute findings. Signer Name: Trent Centeno DO Signed: 08/24/2021 6:41 AM Workstation Name: [id number]
[2021-08-24] MEDS ORDERED: SODIUM CHLORIDE 0.9% 100 ML IV PRN (10:00)
[2021-08-24] MEDS ORDERED: HEPARIN 10,000 UNITS/10 ML VIAL IV PRN (10:00)
--- NOTE | 2021-08-24 12:19 | Event Note ---
Date: 08/24/21 Patient seen today. Reports shortness of breath with exertion. Has no prior history of heart failure only hypertension. Nephrology evaluated patient, will resume hemodialysis today. Awaiting cardiology evaluation. Patient has a indwelling Garcia catheter which will be exchanged by nursing today. We will continue with current plan as stated in H&P at this time.
[2021-08-24 12:25] LABS: Hepatitis B Surface Antigen Non-Reactive (Negative); Hepatitis C Virus Antibody Non-Reactive (NonReactive)
--- NOTE | 2021-08-24 13:55 | Consultation ---
History of Present Illness - Reason for Consult Consult date: 08/24/21 end stage renal disease, hyperkalemia - History of Present Illness The patient is a 71 YO AAM with known history of Hypertension, Enlarged prostate, Anemia and ESRD on hemodialysis (MWF) who presented to [facility] ED 08/23/21 with complaining of shortness of breath which has been ongoing for the past 3 to 4 days. Shortness of breath is said to be getting progressively worse. He denies any chest pain, orthopnea, cough, fever, chills, headache, dizziness, diaphoresis, N, V, D, abd pain or hemoptysis. Patient has been compliant with his dialysis. Work-up in the ED: Potassium 5.4, BUN 73, Creatinine 14, Troponin 0.198 and BNP of 15,359. Chest x-ray with no acute findings. Nephrology was consulted for ESRD management. Past History Past Medical History: dialysis, ESRD, hypertension Past Surgical History: Other (Left arm dialysis access.) Social history: no significant social history Family history: no significant family history Medications and Allergies Allergies Allergy/AdvReac Type Severity Reaction Status Date / Time No Known Allergies Allergy Unverified 01/01/14 15:00 Home Medications Medication Instructions Recorded Confirmed Last Taken Type NIFEdipine [Nifedipine ER] 90 mg PO DAILY 06/01/21 06/01/21 05/31/21 08:00 History Tamsulosin [Flomax] 0.4 mg PO DAILY 06/01/21 06/01/21 05/31/21 08:00 History hydrALAZINE [Apresoline TAB] 100 mg PO TID 06/01/21 06/01/21 05/31/21 14:00 History oxyCODONE /ACETAMINOPHEN [Percocet 1 tab PO Q6HR PRN 06/01/21 06/01/21 05/31/21 08:00 History 5/325 mg] sevelamer HCL [Sevelamer HCl] 800 mg PO TIDAC 06/01/21 06/01/21 05/31/21 14:00 History diphenhydrAMINE [Benadryl CAP] 25 mg PO Q6H PRN 3 Days #12 capsule 06/02/21 Unknown Rx predniSONE [Deltasone] 20 mg PO QDAY 3 Days #3 tablet 06/02/21 Unknown Rx Active Meds: Active Medications Acetaminophen (Acetaminophen 325 Mg Tab) 650 mg PO Q4H PRN PRN Reason: Pain MILD(1-3)/Fever >100.5/CARREON Heparin Sodium (Porcine) (Heparin 10,000 Units/10 Ml Vial) 3,000 unit IV RADHA P RN PRN Reason: hemodialysis Ceftriaxone Sodium (Rocephin/Ns 1 Gm/50 Ml) 1 gm in 50 mls @ 100 mls/hr IV Q24H MAMIE; Protocol Stop: 08/26/21 05:29 Last Admin: 08/24/21 05:59 Dose: 100 mls/hr Sodium Chloride (Nacl 0.9%) 100 mls @ 999 mls/hr IV RADHA PRN PRN Reason: Hypotension Magnesium Hydroxide (Magnesium Hydroxide (Mom) Oral Liqd Udc) 30 ml PO Q4H PRN PRN Reason: Constipation Morphine Sulfate (Morphine 2 Mg/1 Ml Inj) 2 mg IV Q4H PRN PRN Reason: Pain, Moderate (4-6) Morphine Sulfate (Morphine 4 Mg/1 Ml Inj) 4 mg IV Q4H PRN PRN Reason: Pain , Severe (7-10) Ondansetron HCl (Ondansetron 4 Mg/2 Ml Inj) 4 mg IV Q8H PRN PRN Reason: Nausea And Vomiting Sodium Chloride (Sodium Chloride 0.9% 10 Ml Flush Syringe) 10 ml IV BID MAMIE Sodium Chloride (Sodium Chloride 0.9% 10 Ml Flush Syringe) 10 ml IV PRN PRN PRN Reason: LINE FLUSH Review of Systems All systems: negative Exam - Vital Signs Vital signs: Vital Signs Temp Pulse Resp BP Pulse Ox 98.9 F 78 16 181/37 97 08/23/21 22:01 08/23/21 22:01 08/23/21 22:01 08/23/21 22:01 08/23/21 22:01 Results - Lab Results 08/23/21 23:05 08/23/21 23:05 Most recent lab results Calcium 8.0 mg/dL (8.4-10.2) L 08/23/21 23:05 Assessment and Plan 1. ESRD: Patient is on maintenance hemodialysis, MWF schedule. Last outpatient HD 08/22. Hemodialysis: today. 2. FEN: Hyperkalemia, HD today. UF with HD as tolerated. Monitor lytes and volume status. 3. CHF: Clinical findings. BNP 19092. CXR negative. Volume control thru HD. Echo. Cards consulted. 4. Hypertension: Continue home meds. Follow BP. 5. Anemia, POA: Chronic. Epogen with HD as needed. Monitor. Subjective: Patient was seen and examined at the bedside. Examination: General appearance: well-developed, well nourished, appears stated age, not in d istress HEENT: [place] Neck: trachea midline Respiratory: ctab Heart: S1S2, regular, no murmur Abdomen: soft, bowel sounds heard, NT, no palpable mass Integumentary: no obvious rash Neurologic: AO, non-focal Ext: no edema Hemodialysis access: L UE AVF
--- NOTE | 2021-08-24 13:57 | Consultation ---
History of Present Illness Consult date: 08/24/21 Consult reason: shortness of breath History of present illness: The patient is a 71-year-old man with history of chronic hypertension and end- stage renal disease on hemodialysis. No prior cardiac history. He presented to the hospital with 3 to 4 days of shortness of breath, often with exertion. There was no chest pain, no palpitations and no lower extremity edema. He has had no missed dialysis sessions. Work-up in the hospital ECG was normal sinus rhythm, left ventricle hypertrophy with repolarization abnormalities of LVH. Chest x-ray revealed normal size cardiac silhouette and clear lungs. The troponin levels were 0.19 and 0.22, largely a flat profile in the setting of end-stage renal disease. Past History Past Medical History: dialysis, ESRD, hypertension Past Surgical History: Other (Left arm dialysis access.) Social history: no significant social history Family history: no significant family history Medications and Allergies Allergies Allergy/AdvReac Type Severity Reaction Status Date / Time No Known Allergies Allergy Unverified 01/01/14 15:00 Home Medications Medication Instructions Recorded Confirmed Last Taken Type NIFEdipine [Nifedipine ER] 90 mg PO DAILY 06/01/21 06/01/21 05/31/21 08:00 History Tamsulosin [Flomax] 0.4 mg PO DAILY 06/01/21 06/01/21 05/31/21 08:00 History hydrALAZINE [Apresoline TAB] 100 mg PO TID 06/01/21 06/01/21 05/31/21 14:00 History oxyCODONE /ACETAMINOPHEN [Percocet 1 tab PO Q6HR PRN 06/01/21 06/01/21 05/31/21 08:00 History 5/325 mg] sevelamer HCL [Sevelamer HCl] 800 mg PO TIDAC 06/01/21 06/01/21 05/31/21 14:00 History diphenhydrAMINE [Benadryl CAP] 25 mg PO Q6H PRN 3 Days #12 capsule 06/02/21 Unknown Rx predniSONE [Deltasone] 20 mg PO QDAY 3 Days #3 tablet 06/02/21 Unknown Rx Active Meds: Active Medications Acetaminophen (Acetaminophen 325 Mg Tab) 650 mg PO Q4H PRN PRN Reason: Pain MILD(1-3)/Fever >100.5/CARREON Heparin Sodium (Porcine) (Heparin 10,000 Units/10 Ml Vial) 3,000 unit IV RADHA PRN PRN Reason: hemodialysis Ceftriaxone Sodium (Rocephin/Ns 1 Gm/50 Ml) 1 gm in 50 mls @ 100 mls/hr IV Q24H MAMIE; Protocol Stop: 08/26/21 05:29 Last Admin: 08/24/21 05:59 Dose: 100 mls/hr Sodium Chloride (Nacl 0.9%) 100 mls @ 999 mls/hr IV ARDHA PRN PRN Reason: Hypotension Magnesium Hydroxide (Magnesium Hydroxide (Mom) Oral Liqd Udc) 30 ml PO Q4H PRN PRN Reason: Constipation Morphine Sulfate (Morphine 2 Mg/1 Ml Inj) 2 mg IV Q4H PRN PRN Reason: Pain, Moderate (4-6) Morphine Sulfate (Morphine 4 Mg/1 Ml Inj) 4 mg IV Q4H PRN PRN Reason: Pain , Severe (7-10) Ondansetron HCl (Ondansetron 4 Mg/2 Ml Inj) 4 mg IV Q8H PRN PRN Reason: Nausea And Vomiting Sodium Chloride (Sodium Chloride 0.9% 10 Ml Flush Syringe) 10 ml IV BID MAMIE Sodium Chloride (Sodium Chloride 0.9% 10 Ml Flush Syringe) 10 ml IV PRN PRN PRN Reason: LINE FLUSH Review of Systems Cardiovascular: shortness of breath, no chest pain, no orthopnea, no palpitations, no rapid/irregular heart beat, no edema, no syncope, no lightheadedness Physical Examination Vital Signs Temp Pulse Resp BP Pulse Ox 98.9 F 78 16 181/37 97 08/23/21 22:01 08/23/21 22:01 08/23/21 22:01 08/23/21 22:01 08/23/21 22:01 General appearance: no acute distress HEENT: Positive: PERRL Neck: Positive: neck supple Cardiac: Positive: Reg Rate and Rhythm Lungs: Positive: clear to auscultation Neuro: Positive: Grossly Intact Abdomen: Positive: Soft Male genitourinary: Positive: deferred Skin: Positive: Clear Extremities: Absent: edema Results 08/23/21 23:05 08/23/21 23:05 Cardiac Enzymes 08/23/21 Range/Units 23:05 AST 15 (5-40) units/L Coagulation 08/23/21 Range/Units 23:05 PT 13.6 (12.2-14.9) Sec. INR 0.94 (0.87-1.13) APTT 28.1 (24.2-36.6) Sec. Lipids 08/23/21 Range/Units 23:05 Triglycerides 121 (2-149) mg/dL Cholesterol 126 (50-199) mg/dL HDL Cholesterol 27 L (40-59) mg/dL Cholesterol/HDL Ratio 4.66 % CBC 08/23/21 Range/Units 23:05 WBC 9.1 (4.5-11.0) K/mm3 RBC 3.99 (3.65-5.03) M/mm3 Hgb 11.6 L (11.8-15.2) gm/dl Hct 36.1 (35.5-45.6) % Plt Count 351 (140-440) K/mm3 Lymph # (Auto) 1.8 (1.2-5.4) K/mm3 Wetzel # (Auto) 0.8 (0.0-0.8) K/mm3 Eos # (Auto) 0.3 (0.0-0.4) K/mm3 Baso # (Auto) 0.1 (0.0-0.1) K/mm3 Comprehensive Metabolic Panel 08/23/21 Range/Units 23:05 Sodium 141 (137-145) mmol/L Potassium 5.4 H (3.6-5.0) mmol/L Chloride 98.6 (98-107) mmol/L Carbon Dioxide 19 L (22-30) mmol/L BUN 73 H (9-20) mg/dL Creatinine 14.0 H (0.8-1.3) mg/dL Glucose 88 (75-100) mg/dL Calcium 8.0 L (8.4-10.2) mg/dL AST 15 (5-40) units/L ALT 9 (7-56) units/L Alkaline Phosphatase 93 (35-129) units/L Total Protein 6.7 (6.3-8.2) g/dL Albumin 3.6 L (3.9-5) g/dL EKG interpretations - Telemetry EKG Rhythm: Sinus Rhythm (With left ventricle hypertrophy and repolarization abnormalities of LVH) Assessment and Plan - Patient Problems (1) Shortness of breath Current Visit: Yes Status: Acute Plan to address problem: Patient presents with shortness of breath, chest x-ray is clear and there is no lower extremity edema. He is on dialysis but has had no missed sessions. EKG is benign and troponin levels are mildly elevated but equivocal in the setting of end-stage renal disease. An echocardiogram has been ordered for left ventricular function assessment, further cardiac evaluation and management will depend on clinical course.
[2021-08-25 05:07] LABS: Hematocrit 37.9 % (35.5-45.6); Hemoglobin 11.8 gm/dl (11.8-15.2); Mean Corpuscular HGB Conc 31 % (32-34); Mean Corpuscular Volume 91 fl (84-94); Platelet Count 334 K/mm3 (140-440); Red Blood Count 4.18 M/mm3 (3.65-5.03); Red Cell Distribution Width 15.7 % (13.2-15.2)
[2021-08-25 05:14] LABS: Calcium 8.5 mg/dL (8.4-10.2)
--- NOTE | 2021-08-25 06:41 | Progress Note ---
Assessment and Plan 1. ESRD: Patient is on maintenance hemodialysis, MWF schedule. Last outpatient HD 08/22. Hemodialysis: 08/24. 2. FEN: Hyperkalemia, improved with HD. UF with HD as tolerated. Monitor lytes and volume status. 3. CHF: Clinical findings. BNP 93671. CXR negative. Volume control thru HD. Echo. Followed by Cards. 4. Hypertension: Continue home meds. Follow BP. 5. Anemia, POA: Chronic. Epogen with HD as needed. Monitor. Subjective: Patient was seen and examined at the bedside. Doing ok. Examination: General appearance: well-developed, well nourished, appears stated age, not in distress HEENT: [place] Neck: trachea midline Respiratory: ctab Heart: S1S2, regular, no murmur Abdomen: soft, bowel sounds heard, NT, no palpable mass Integumentary: no obvious rash Neurologic: AO, non-focal Ext: no edema Hemodialysis access: L FA AVF Subjective Date of service: 08/25/21 Objective - Vital Signs Vital signs: Vital Signs - 12hr 08/24/21 08/24/21 08/25/21 19:56 23:54 03:00 Temperature 98.4 F 98.1 F Pulse Rate 66 67 Respiratory 18 18 Rate Blood Pressure 135/38 144/36 O2 Sat by Pulse 95 97 99 Oximetry - Lab 08/25/21 04:23 08/25/21 04:23 Most recent lab results Calcium 8.5 mg/dL (8.4-10.2) 08/25/21 04:23 Medications & Allergies - Medications Allergies/Adverse Reactions: Allergies No Known Allergies Allergy (Unverified 01/01/14 15:00) Home Medications: Home Medications Medication Instructions Recorded Confirmed Last Taken Type Tamsulosin [Flomax] 0.4 mg PO DAILY 06/01/21 06/01/21 05/31/21 08:00 History hydrALAZINE [Apresoline TAB] 100 mg PO TID 06/01/21 06/01/21 05/31/21 14:00 History oxyCODONE /ACETAMINOPHEN [Percocet 1 tab PO Q6HR PRN 06/01/21 06/01/21 05/31/21 08:00 History 5/325 mg] sevelamer HCL [Sevelamer HCl] 800 mg PO TIDAC 06/01/21 06/01/21 05/31/21 14:00 History diphenhydrAMINE [Benadryl CAP] 25 mg PO Q6H PRN 3 Days #12 capsule 06/02/21 Unknown Rx Aspirin EC [Halfprin EC] 81 mg PO QDAY 30 Days #30 tablet 08/25/21 Unknown Rx AtorvaSTATin [Lipitor] 20 mg PO QHS 30 Days #30 tablet 08/25/21 Unknown Rx ISOSORBIDE MONOnitrate [Imdur ER] 30 mg PO QDAY 30 Days #30 tablet 08/25/21 Unknown Rx Metoprolol [Lopressor TAB] 25 mg PO BID 30 Days #60 tablet 08/25/21 Unknown Rx NIFEdipine XL [Procardia Xl] 60 mg PO QDAY 30 Days #30 tablet 08/25/21 Unknown Rx Active Medications: Generic Name Dose Route Start Last Admin Trade Name Freq PRN Reason Stop Dose Admin Acetaminophen 650 mg 08/24/21 01:04 Acetaminophen 325 Mg Tab PO Q4H PRN Pain MILD(1-3)/Fever >100.5/CARREON Heparin Sodium (Porcine) 3,000 unit 08/24/21 10:00 Heparin 10,000 Units/10 Ml Vial IV RADHA PRN hemodialysis Ceftriaxone Sodium 1 gm in 50 mls @ 100 mls/hr 08/24/21 05:00 08/24/21 05:59 Rocephin/Ns 1 Gm/50 Ml IV 08/26/21 05:29 100 mls/hr Q24H MAMIE Administration Protocol Sodium Chloride 100 mls @ 999 mls/hr 08/24/21 10:00 Nacl 0.9% IV RADHA PRN Hypotension Magnesium Hydroxide 30 ml 08/24/21 01:04 Magnesium Hydroxide (Mom) Oral Liqd Udc PO Q4H PRN Constipation Morphine Sulfate 2 mg 08/24/21 01:04 Morphine 2 Mg/1 Ml Inj IV Q4H PRN Pain, Moderate (4-6) Morphine Sulfate 4 mg 08/24/21 01:04 Morphine 4 Mg/1 Ml Inj IV Q4H PRN Pain , Severe (7-10) Ondansetron HCl 4 mg 08/24/21 01:04 Ondansetron 4 Mg/2 Ml Inj IV Q8H PRN Nausea And Vomiting Sodium Chloride 10 ml 08/24/21 10:00 08/24/21 22:22 Sodium Chloride 0.9% 10 Ml Flush Syringe IV 10 ml BID MAMIE Administration Sodium Chloride 10 ml 08/24/21 01:04 Sodium Chloride 0.9% 10 Ml Flush Syringe IV PRN PRN LINE FLUSH
[2021-08-25 06:43] LABS: Total Cells Counted 100
[2021-08-25 06:44] LABS: Large Platelets Few; Platelet Estimate Consistent w Auto; RBC Morphology Normal
[2021-08-25] MEDS ORDERED: SODIUM CHLORIDE IRRI 500 ML 500 ML IR ONE (07:28)
[2021-08-25] MEDS ORDERED: SODIUM CHLORIDE 0.9% IRR 500 ML BOTTLE IR SCH (07:30)
[2021-08-25] MEDS ORDERED: REGADENOSON 0.4 MG/5 ML INJ IV ONE (08:40)
[2021-08-25 10:41] VITALS: BP 168/41
--- NOTE | 2021-08-25 12:17 | Progress Note ---
Assessment and Plan - Patient Problems (1) Shortness of breath Current Visit: Yes Status: Acute Plan to address problem: Patient presents with shortness of breath, chest x-ray is clear and there is no lower extremity edema. He is on dialysis but has had no missed sessions. EKG is benign and troponin levels are mildly elevated but equivocal in the setting of end-stage renal disease. Echocardiogram shows normal left ventricular systolic function, ejection fra ction 55 to 60%. He has completed a Lexiscan thallium stress test today, results pending. Subjective Date of service: 08/25/21 Principal diagnosis: Chest pain Interval history: Patient is comfortable, no new cardiac complaints, no cardiac events reported. He underwent a Lexiscan thallium stress test today, results are pending. Objective Vital Signs Temp Pulse Resp BP Pulse Ox 08/25/21 09:58 168/41 08/25/21 09:57 163/44 08/25/21 09:55 164/42 08/25/21 09:54 174/46 08/25/21 09:10 130/32 08/25/21 09:08 134/33 08/25/21 08:16 97.7 F 68 74/36 97 08/25/21 04:15 98.5 F 74 18 140/32 95 08/25/21 03:00 99 08/24/21 23:54 98.1 F 67 18 144/36 97 08/24/21 19:56 98.4 F 66 18 135/38 95 08/24/21 18:35 98.1 F 71 132/35 97 - Physical Examination General: No Apparent Distress HEENT: Positive: PERRL Neck: Positive: neck supple Cardiac: Positive: Reg Rate and Rhythm Lungs: Positive: Decreased Breath Sounds Neuro: Positive: Grossly Intact Abdomen: Positive: Soft Skin: Positive: Clear Extremities: Absent: edema - Labs and Meds CBC 08/25/21 Range/Units 04:23 WBC 9.7 (4.5-11.0) K/mm3 RBC 4.18 (3.65-5.03) M/mm3 Hgb 11.8 (11.8-15.2) gm/dl Hct 37.9 (35.5-45.6) % Plt Count 334 (140-440) K/mm3 Comprehensive Metabolic Panel 08/25/21 Range/Units 04:23 Sodium 137 (137-145) mmol/L Potassium 4.0 D (3.6-5.0) mmol/L Chloride 95.2 L (98-107) mmol/L Carbon Dioxide 21 L (22-30) mmol/L BUN 53 H (9-20) mg/dL Creatinine 11.7 H (0.8-1.3) mg/dL Glucose 136 H (75-100) mg/dL Calcium 8.5 (8.4-10.2) mg/dL
--- NOTE | 2021-08-25 12:48 | Nuclear Medicine Report ---
APPROVED REPORT Exam: Nuclear Stress Test Indication: Chest pain Patient Location: [facility] ([facility]TELEMETRY Room #: 478 Ht: 5 ft 7 in Wt: 190 lbs BSA: 1.98 m2 HR: 55 bpmBP: 134/33 mmHgBMI: 29.75 Rhythm: SINUS RHYTHM WITH MARKED SINUS ARRHYTHMIA WITH FIRST DEGREE AV BLOCK, ST-T WAVE ABNORMALITIES, POSSIBLE INFERIOR ISCHEMIA Stress Test Details Stress Test: Pharmacologic stress testing performed using 0.4 mg of regadenoson per 5 mL given IV over 10 seconds. Reason for pharmacologic stress test: physical limitation. HR Resting HR: 55 bpm Max HR Achieved: 87 bpm Max Heart Rate (APMHR): 147 bpm Target HR (85% APMHR): 124 bpm % of APMHR: 59 Recovery HR: 78 bpm BP Resting BP: 134/33 mmHg Max BP: 174/46 mmHg Recovery BP: 130/32 mmHg ECG Resting ECG: Sinus Rhythm 1st degree AV block Stress ECG: Sinus Rhythm, 1st degree AV block Arrhythmia: None Recovery ECG: Sinus Rhythm Recovery ST Change: None Recovery Arrhythmia: None Clinical Reason for Termination: Completed protocol Stress Symptoms: None Stress ECG Conclusion No chest pain, no ST changes of ischemia with pharmacologic stress. Myocardial perfusion images are pending. NM EXAM: Myocardial Perfusion REST/STRESS Imaging Protocol: Rest Tc-99m/Stress Tc-99m 1 day Resting Data Rest SPECT myocardial perfusion imaging was performed in supine position 45 minutes following the intravenous injection of 10 mCi of Tc-99m Myoview. Time of rest injection: 0700 Date: 08/25/2021 Pharmacologic Stress Pharmacologic stress test was performed by injecting Regadenoson 0.4 mg IV push followed by the intravenous injection of 28 mCi of Tc-99m Myoview. Time of stress injection: 1000 Date: 08/25/2021 Gated Stress SPECT was performed 30 minutes after stress injection. The images were gated to evaluate regional wall motion and calculate left ventricular ejection fraction. Study Data TID = 1.09. Perfusion Wall Motion Gated analysis reports well-preserved left ventricular systolic function with ejection fraction 51%. Nuclear Conclusion ECG Findings: negative for ischemia Clinical Findings: negative for ischemia Nuclear Findings: negative for ischemia Left Ventricular Function: normal Risk Study: low Myocardial perfusion study demonstrates a small fixed basal posterolateral defect, no reversibility on resting study. Evidence of diaphragmatic attenuation or a possible prior infarct with no reversible ischemia. Clinical correlation is recommended. Conclusion No chest pain, no ST changes of ischemia with pharmacologic stress. Myocardial perfusion images are pending.
--- NOTE | 2021-08-25 12:55 | Event Note ---
Date: 08/25/21 Lexiscan stress test showed a small basal inferolateral defect with no reversible ischemia. Recommend conservative management, medical therapy and outpatient follow-up in our cardiology clinic in 7 days.
[2021-08-25] MEDS ORDERED: ASPIRIN EC 81 MG TAB PO SCH (13:00)
[2021-08-25] MEDS ORDERED: NIFEdipine XL 60 MG TAB PO SCH (13:00)
--- NOTE | 2021-08-25 13:12 | Discharge Summary ---
Providers - Providers Date of Admission: 08/24/21 00:52 Date of discharge: 08/25/21 Attending physician: BALBIR MENON MD 08/24/21 01:04 Consult to Physician [CONS] Routine Comment: Consulting Provider: RIAZ HOLM Physician Instructions: Reason For Exam: CHF,ELEVATED TROPONIN,ESRD ON DIALYSIS Consult to Physician [CONS] Routine Comment: Consulting Provider: DEB MONTALVO Physician Instructions: Reason For Exam: ESRD - Needing dialysis Hospitalization Reason for admission: hyperkalemia, volume overload Condition: Stable Hospital course: 71-year-old male with history of ESRD on HD Sunday, Sunday and Sunday who presented with complaint of shortness of breath. He was found to have hyperkalemia, elevated troponin and BNP of 15,000. He was admitted for hemodialysis. Chest x-ray showed mild pulmonary vascular congestion. Echocardiogram showed ejection fraction of 55 to 60%. Stress test was performed and showed a small basal inferior lateral defect with no reversible ischemia. Once stable he was discharged home with instructions to follow-up with cardiology outpatient. Disposition: 01 HOME / SELF CARE / HOMELESS Final Discharge Diagnosis (Prints w/discharge instructions): End-stage renal disease requiring hemodialysis. Hypertension. Hyperkalemia. NSTEMI type II. Urinary tract infection. Uremia Time spent for discharge: 30 minutes Core Measure Documentation - Palliative Care Palliative Care/ Comfort Measures: Not Applicable - Core Measures Any of the following diagnoses?: heart failure - Heart Failure Discharge Requirements MONICO/ARB for LVSD if EF <40%: Not Applicable Reason for no MONICO/ARB: Renal impairment Beta good at discharge: Yes Exam - Physical Exam Narrative exam: GENERAL: Well-developed well-nourished. Sitting on the side of the bed in no acute distress. HEENT: Normocephalic. Atraumatic. NECK: Supple. CHEST/LUNGS: CTAB on room air HEART/CARDIOVASCULAR: RRR. No murmur, rubs or gallops appreciated. ABDOMEN: +BS. NT/ND. SKIN: No rashes noted. NEURO: No focal motor deficit. Follows all commands and is ambulatory. MUSCULOSKELETAL: No joint effusion EXTREMITIES: No cyanosis, cubbing or edema. PSYCH: Cooperative. - Constitutional Vitals: Temp Pulse Resp BP Pulse Ox 97.7 F 68 18 168/41 97 08/25/21 08:16 08/25/21 08:16 08/25/21 04:15 08/25/21 09:58 08/25/21 08:16 Plan Care Plan Goals: Please make an appointment to follow-up with cardiology within a week. Your stress test was negative. Make sure to continue getting dialysis at your current schedule. Follow up with: BOGDAN DASILVA [Other] - 7 Days RIAZ HOLM MD [Staff Physician] - 7 Days Prescriptions: AtorvaSTATin [Lipitor] 20 mg PO QHS 30 Days #30 tablet Aspirin EC [Halfprin EC] 81 mg PO QDAY 30 Days #30 tablet ISOSORBIDE MONOnitrate [Imdur ER] 30 mg PO QDAY 30 Days #30 tablet Metoprolol [Lopressor TAB] 25 mg PO BID 30 Days #60 tablet NIFEdipine XL [Procardia Xl] 60 mg PO QDAY 30 Days #30 tablet
[2021-08-25] MEDS ORDERED: METOPROLOL TARTRATE 25 MG TAB PO SCH (22:00)
== END 2021-08-25 14:03 | disposition home or self-care (01) ==
LOC: ED 21:52 → 4A 08-24 00:52 → INTOOBSV 08-24 00:52
PROVIDERS: ADMIT Internal Medicine Geriatric Medicine; ATTEND Student in an Organized Health Care Education/Training Program
DX: E87.70 Fluid overload, unspecified (principal); I13.2 Hypertensive heart and chronic kidney disease with heart failure and with stage 5 chronic kidney disease, or end stage renal disease; I50.9 Heart failure, unspecified; N18.6 End stage renal disease; D63.1 Anemia in chronic kidney disease; E87.5 Hyperkalemia; R77.8 Other specified abnormalities of plasma proteins; N39.0 Urinary tract infection, site not specified; R06.02 Shortness of breath; Z99.2 Dependence on renal dialysis; Z79.899 Other long term (current) drug therapy; Z98.890 Other specified postprocedural states
CPT/HCPCS: 36415; 71045; 78452; 80048; 80053; 80061; 80074; 81001; 83880; 84443; 84484; 85025; 85610; 85730; 87076; 87086; 87186; 93005; 93017; 96365; 99285; A9502; C8929; G0378; J0696; J2785; 85007; 93306

== ENCOUNTER 2021-11-25 15:06 | Emergency (ER) | payer MEDICARE ==
[2021-11-25] MEDS ORDERED: ALBUTEROL 2.5 MG/3 ML NEBU IH ONE (22:44)
[2021-11-25] MEDS ORDERED: IPRATROPIUM 0.02% NEBU 2.5 ML IH ONE (22:44)
--- NOTE | 2021-11-25 23:10 | XRay Report ---
CHEST 1 VIEW 11/25/2021 10:02 PM INDICATION / CLINICAL INFORMATION: Dyspnea. COMPARISON: 08/23/2021 FINDINGS: SUPPORT DEVICES: None. HEART / MEDIASTINUM: No significant abnormality. LUNGS / PLEURA: No significant pulmonary or pleural abnormality. No pneumothorax. ADDITIONAL FINDINGS: No significant additional findings. IMPRESSION: 1. No acute findings. Signer Name: Moustapha Guerrero MD Signed: 11/25/2021 11:05 PM Workstation Name: [id number]
[2021-11-25 23:53] LABS: Basophils # (Auto) 0.1 K/mm3 (0.0-0.1); Basophils % (Auto) 2.1 % (0.0-1.8); Eosinophils # (Auto) 0.2 K/mm3 (0.0-0.4); Hematocrit 31.7 % (35.5-45.6); Hemoglobin 10.3 gm/dl (11.8-15.2); Lymphocytes # (Auto) 0.7 K/mm3 (1.2-5.4); Mean Corpuscular HGB Conc 33 % (32-34); Mean Corpuscular Volume 90 fl (84-94); Monocytes # (Auto) 0.5 K/mm3 (0.0-0.8); Monocytes % (Auto) 8.5 % (0.0-7.3); Platelet Count 245 K/mm3 (140-440); Red Blood Count 3.52 M/mm3 (3.65-5.03); Red Cell Distribution Width 14.9 % (13.2-15.2)
[2021-11-26 00:13] LABS: Creatine Kinase MB 3.3 ng/mL (0.0-4.0)
[2021-11-26 00:15] LABS: Albumin 3.7 g/dL (3.9-5); Calcium 7.5 mg/dL (8.4-10.2)
[2021-11-26 00:42] LABS: INR 0.88 (0.87-1.13)
--- NOTE | 2021-11-26 01:13 | Emergency Department Report ---
ED General Adult HPI - General Chief complaint: Weakness Stated complaint: WEAKNESS/COUGH PUI?: No Time Seen by Provider: 11/25/21 22:44 Source: patient Mode of arrival: Wheelchair Limitations: No Limitations - History of Present Illness Initial comments: Patient present to ED with c/o generalized weakness, and cough x 1 day. -: Gradual, hour(s) Location: chest Radiation: non-radiation Severity scale (0 -10): 8 Improves with: none Worsens with: none Associated Symptoms: denies: denies other symptoms, confusion, chest pain - Related Data Home Medications Medication Instructions Recorded Confirmed Last Taken Tamsulosin [Flomax] 0.4 mg PO DAILY 06/01/21 06/01/21 05/31/21 08:00 hydrALAZINE [Apresoline TAB] 100 mg PO TID 06/01/21 06/01/21 05/31/21 14:00 oxyCODONE /ACETAMINOPHEN [Percocet 1 tab PO Q6HR PRN 06/01/21 06/01/21 05/31/21 08:00 5/325 mg] sevelamer HCL [Sevelamer HCl] 800 mg PO TIDAC 06/01/21 06/01/21 05/31/21 14:00 Previous Rx's Medication Instructions Recorded Last Taken Type diphenhydrAMINE [Benadryl CAP] 25 mg PO Q6H PRN 3 Days #12 capsule 06/02/21 Unknown Rx Aspirin EC [Halfprin EC] 81 mg PO QDAY 30 Days #30 tablet 08/25/21 Unknown Rx AtorvaSTATin [Lipitor] 20 mg PO QHS 30 Days #30 tablet 08/25/21 Unknown Rx ISOSORBIDE MONOnitrate [Imdur ER] 30 mg PO QDAY 30 Days #30 tablet 08/25/21 Unknown Rx Metoprolol [Lopressor TAB] 25 mg PO BID 30 Days #60 tablet 08/25/21 Unknown Rx NIFEdipine XL [Procardia Xl] 60 mg PO QDAY 30 Days #30 tablet 08/25/21 Unknown Rx Allergies Allergy/AdvReac Type Severity Reaction Status Date / Time No Known Allergies Allergy Verified 11/25/21 15:50 ED Review of Systems ROS: Stated complaint: WEAKNESS/COUGH Other details as noted in HPI Constitutional: denies: chills, fever Eyes: denies: eye pain, eye discharge, vision change ENT: denies: ear pain, throat pain Respiratory: denies: cough, shortness of breath, wheezing Cardiovascular: denies: chest pain, palpitations Endocrine: no symptoms reported Gastrointestinal: denies: abdominal pain, nausea, diarrhea Genitourinary: denies: urgency, dysuria Musculoskeletal: denies: back pain, joint swelling, arthralgia Skin: denies: rash, lesions Neurological: denies: headache, weakness, paresthesias Psychiatric: denies: anxiety, depression Hematological/Lymphatic: denies: easy bleeding, easy bruising ED Past Medical Hx - Past Medical History Hx Hypertension: Yes Hx Congestive Heart Failure: Yes Hx Renal Disease: Yes (ESRD HD MWF) - Surgical History Additional Surgical History: Dialysis Acess left arm - Social History Smoking Status: Never Smoker - Medications Home Medications: Home Medications Medication Instructions Recorded Confirmed Last Taken Type Tamsulosin [Flomax] 0.4 mg PO DAILY 06/01/21 06/01/21 05/31/21 08:00 History hydrALAZINE [Apresoline TAB] 100 mg PO TID 06/01/21 06/01/21 05/31/21 14:00 History oxyCODONE /ACETAMINOPHEN [Percocet 1 tab PO Q6HR PRN 06/01/21 06/01/21 05/31/21 08:00 History 5/325 mg] sevelamer HCL [Sevelamer HCl] 800 mg PO TIDAC 06/01/21 06/01/21 05/31/21 14:00 History diphenhydrAMINE [Benadryl CAP] 25 mg PO Q6H PRN 3 Days #12 capsule 06/02/21 Un known Rx Aspirin EC [Halfprin EC] 81 mg PO QDAY 30 Days #30 tablet 08/25/21 Unknown Rx AtorvaSTATin [Lipitor] 20 mg PO QHS 30 Days #30 tablet 08/25/21 Unknown Rx ISOSORBIDE MONOnitrate [Imdur ER] 30 mg PO QDAY 30 Days #30 tablet 08/25/21 Unknown Rx Metoprolol [Lopressor TAB] 25 mg PO BID 30 Days #60 tablet 08/25/21 Unknown Rx NIFEdipine XL [Procardia Xl] 60 mg PO QDAY 30 Days #30 tablet 08/25/21 Unknown Rx ED Physical Exam - General Limitations: No Limitations General appearance: alert, in no apparent distress - Head Head exam: Present: atraumatic, normocephalic - Eye Eye exam: Present: normal appearance - ENT ENT exam: Present: mucous membranes moist - Neck Neck exam: Present: normal inspection - Respiratory Respiratory exam: Present: wheezes. Absent: respiratory distress - Cardiovascular Cardiovascular Exam: Present: regular rate, normal rhythm. Absent: systolic murmur, diastolic murmur, rubs, gallop - GI/Abdominal GI/Abdominal exam: Present: soft, normal bowel sounds - Rectal Rectal exam: Present: deferred - Extremities Exam Extremities exam: Present: normal inspection - Back Exam Back exam: Present: normal inspection - Neurological Exam Neurological exam: Present: alert, oriented X3 - Psychiatric Psychiatric exam: Present: normal affect, normal mood - Skin Skin exam: Present: warm, dry, intact, normal color. Absent: rash ED Course Vital Signs 11/25/21 11/25/21 11/25/21 15:47 22:53 23:01 Temperature 99.3 F Pulse Rate 75 71 75 Pulse Rate [ Bilateral] Respiratory 11 L 18 Rate Respiratory Rate [Bilateral ] Blood Pressure 174/37 Blood Pressure 171/43 [Right] O2 Sat by Pulse 94 95 93 Oximetry 11/25/21 11/25/21 11/25/21 23:15 23:31 23:45 Temperature Pulse Rate 65 65 61 Pulse Rate [ Bilateral] Respiratory 11 L 13 25 H Rate Respiratory Rate [Bilateral ] Blood Pressure 192/72 192/72 166/40 Blood Pressure [Right] O2 Sat by Pulse 96 96 95 Oximetry 11/26/21 00:30 Temperature Pulse Rate Pulse Rate [ 70 Bilateral] Respiratory Rate Respiratory 18 Rate [Bilateral ] Blood Pressure Blood Pressure [Right] O2 Sat by Pulse Oximetry ED Medical Decision Making - Lab Data Result diagrams: 11/25/21 23:28 11/25/21 23:28 - EKG Data -: EKG Interpreted by [facility] EKG shows normal: sinus rhythm Rate: normal - EKG Data When compared to previous EKG there are: no significant change - Radiology Data Radiology results: report reviewed, image reviewed - Medical Decision Making vss , exam shwoed wheeziing x rya clear 2 sat99 , no signs of fluid overload, compliant with dialysis Critical care attestation.: If time is entered above; I have spent that time in minutes in the direct care of this critically ill patient, excluding procedure time. ED Disposition Clinical Impression: ESRD (end stage renal disease), HTN (hypertension), SOB (shortness of breath), Bronchitis Disposition: 01 HOME / SELF CARE / HOMELESS Is pt being admited?: No Does the pt Need Aspirin: No Condition: Stable Instructions: Hypertension (ED), Chronic Bronchitis (ED), Shortness of Breath, Adult, [id number]
[2021-11-26 02:01] VITALS: BP 160/46
[2021-11-26 03:16] LABS: Chol/HDL Ratio 3.64 %
--- NOTE | 2021-11-27 14:39 | Electrocardiograph Report ---
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
== END 2021-11-26 02:02 | disposition home or self-care (01) ==
LOC: ED 15:06
DX: I13.2 Hypertensive heart and chronic kidney disease with heart failure and with stage 5 chronic kidney disease, or end stage renal disease (principal); N18.6 End stage renal disease; I50.9 Heart failure, unspecified; J40 Bronchitis, not specified as acute or chronic; Z99.2 Dependence on renal dialysis; Z79.82 Long term (current) use of aspirin; Z79.899 Other long term (current) drug therapy
CPT/HCPCS: 36415; 71045; 80053; 80061; 82550; 82553; 83690; 84484; 85025; 85610; 93005; 94640; 94644; 99284

== ENCOUNTER 2021-12-12 08:11 | Inpatient (IN) | payer MEDICARE ==
--- NOTE | 2021-12-12 08:46 | Emergency Department Report ---
ED General Adult HPI - General Chief complaint: Dyspnea/Respdistress Stated complaint: EDISON/SCHEDULED FOR DIAYLSIS TODAY PUI?: No Time Seen by Provider: 12/12/21 08:44 Source: EMS ( EMS documentation not available at time of chart dictation ), RN notes reviewed Mode of arrival: Stretcher Limitations: No Limitations - History of Present Illness Initial comments: The patient was evaluated in the emergency department for symptoms described in the history of present illness. He/she was evaluated in the context of the global COVID-19 pandemic, which necessitated consideration that the patient might be at risk for infection with the virus that causes COVID-19. Institutional protocols and algorithms that pertain to the evaluation of patients at risk for COVID-19 are in a state of rapid change based on information released by regulatory bodies including the CDC and federal and state organizations. These policies and algorithms were followed during the patient's care in the emergency department. Please note that these policies, procedures and recommendations changed on a rapid basis. Nephrology: Dr. Sheridan Patient is a 71-year-old gentleman who states that he is COVID-19 vaccinated. He has a history of end-stage renal disease, on hemodialysis. He presents to the ER today with a complaint of painless shortness of breath. He denies travel, surgery, immobilization, DVT and pulmonary embolism risk factors. He does not make urine. -: Gradual, days(s) Severity scale (0 -10): 0 Consistency: constant Improves with: rest Worsens with: movement - Related Data Home Medications Medication Instructions Recorded Confirmed Last Taken Tamsulosin [Flomax] 0.4 mg PO DAILY 06/01/21 06/01/21 05/31/21 08:00 hydrALAZINE [Apresoline TAB] 100 mg PO TID 06/01/21 06/01/21 05/31/21 14:00 oxyCODONE /ACETAMINOPHEN [Percocet 1 tab PO Q6HR PRN 06/01/21 06/01/21 05/31/21 08:00 5/325 mg] sevelamer HCL [Sevelamer HCl] 800 mg PO TIDAC 06/01/21 06/01/21 05/31/21 14:00 Previous Rx's Medication Instructions Recorded Last Taken Type diphenhydrAMINE [Benadryl CAP] 25 mg PO Q6H PRN 3 Days #12 capsule 06/02/21 Unknown Rx Aspirin EC [Halfprin EC] 81 mg PO QDAY 30 Days #30 tablet 08/25/21 Unknown Rx AtorvaSTATin [Lipitor] 20 mg PO QHS 30 Days #30 tablet 08/25/21 Unknown Rx ISOSORBIDE MONOnitrate [Imdur ER] 30 mg PO QDAY 30 Days #30 tablet 08/25/21 Unknown Rx Metoprolol [Lopressor TAB] 25 mg PO BID 30 Days #60 tablet 08/25/21 Unknown Rx NIFEdipine XL [Procardia Xl] 60 mg PO QDAY 30 Days #30 tablet 08/25/21 Unknown Rx Albuterol Mdi (or & Nicu Only) 2 puff IH QID PRN #8.5 gram 11/26/21 Unknown Rx [ProAir HFA Inhaler] Amoxicillin/K Clav Tab [Augmentin 1 tab PO Q12HR #14 tab 11/26/21 Unknown Rx 875 mg] Allergies Allergy/AdvReac Type Severity Reaction Status Date / Time No Known Allergies Allergy Verified 12/12/21 10:51 ED Review of Systems ROS: Stated complaint: EDISON/SCHEDULED FOR DIAYLSIS TODAY Other details as noted in HPI Comment: All other systems reviewed and negative Respiratory: shortness of breath, SOB with exertion, SOB at rest. denies: cough Cardiovascular: chest pain, edema Gastrointestinal: denies: abdominal pain, hematemesis, melena Neurological: weakness Hematological/Lymphatic: denies: easy bleeding ED Past Medical Hx - Past Medical History Hx Hypertension: Yes Hx Congestive Heart Failure: Yes Hx Renal Disease: Yes (ESRD HD MWF) - Surgical History Additional Surgical History: Dialysis Acess left arm - Social History Smoking Status: Never Smoker - Medications Home Medications: Home Medications Medication Instructions Recorded Confirmed Last Taken Type Tamsulosin [Flomax] 0.4 mg PO DAILY 06/01/21 06/01/21 05/31/21 08:00 History hydrALAZINE [Apresoline TAB] 100 mg PO TID 06/01/21 06/01/21 05/31/21 14:00 History oxyCODONE /ACETAMINOPHEN [Percocet 1 tab PO Q6HR PRN 06/01/21 06/01/21 05/31/21 08:00 History 5/325 mg] sevelamer HCL [Sevelamer HCl] 800 mg PO TIDAC 06/01/21 06/01/21 05/31/21 14:00 History diphenhydrAMINE [Benadryl CAP] 25 mg PO Q6H PRN 3 Days #12 capsule 06/02/21 Unknown Rx Aspirin EC [Halfprin EC] 81 mg PO QDAY 30 Days #30 tablet 08/25/21 Unknown Rx AtorvaSTATin [Lipitor] 20 mg PO QHS 30 Days #30 tablet 08/25/21 Unknown Rx ISOSORBIDE MONOnitrate [Imdur ER] 30 mg PO QDAY 30 Days #30 tablet 08/25/21 Unknown Rx Metoprolol [Lopressor TAB] 25 mg PO BID 30 Days #60 tablet 08/25/21 Unknown Rx NIFEdipine XL [Procardia Xl] 60 mg PO QDAY 30 Days #30 tablet 08/25/21 Unknown Rx Albuterol Mdi (or & Nicu Only) 2 puff IH QID PRN #8.5 gram 11/26/21 Unknown Rx [ProAir HFA Inhaler] Amoxicillin/K Clav Tab [Augmentin 1 tab PO Q12HR #14 tab 11/26/21 Unknown Rx 875 mg] ED Physical Exam - General Limitations: No Limitations General appearance: alert, anxious - Head Head exam: Present: atraumatic, normocephalic - Eye Eye exam: Present: normal appearance, EOMI. Absent: nystagmus - ENT ENT exam: Present: normal exam, normal orophraynx, mucous membranes moist, normal external ear exam - Neck Neck exam: Present: normal inspection, full ROM. Absent: tenderness, meningismus - Respiratory Respiratory exam: Present: rhonchi. Absent: respiratory distress, wheezes, stridor - Cardiovascular Cardiovascular Exam: Present: regular rate, normal rhythm, normal heart sounds. Absent: bradycardia, tachycardia, irregular rhythm, systolic murmur, diastolic murmur, rubs, gallop - GI/Abdominal GI/Abdominal exam: Present: soft. Absent: distended, tenderness, guarding, rebound, rigid, pulsatile mass - Rectal Rectal exam: Present: deferred - Extremities Exam Extremities exam: Present: normal inspection (Upper extremity fistula appreciated, with appropriate thrill, without redness, pus or streaking), full ROM, pedal edema, other (2+ pulses noted in the bilateral upper and lower extre mities. There is no palpable cord. negative Homans sign. Muscular compartments are soft. The pelvis is stable.). Absent: calf tenderness - Back Exam Back exam: Present: normal inspection. Absent: tenderness, CVA tenderness (R), CVA tenderness (L), paraspinal tenderness, vertebral tenderness - Neurological Exam Neurological exam: Present: alert, oriented X3, normal gait, other (No facial droop. Tongue midline. Extraocular movements intact bilaterally. Facial sensation intact to light touch in V1, V2, V3 distribution bilaterally. 5 and a 5 strength in 4 extremities. Sensation intact to light touch in 4 ex tremities.). Absent: motor sensory deficit - Psychiatric Psychiatric exam: Present: normal affect, normal mood - Skin Skin exam: Present: warm, dry, intact, normal color. Absent: rash ED Course Vital Signs 12/12/21 12/12/21 08:30 10:20 Temperature 98.3 F 98.1 F Pulse Rate 93 H 79 Respiratory 19 29 H Rate Blood Pressure 145/113 102/80 [Left] O2 Sat by Pulse 95 95 Oximetry - Reevaluation(s) Reevaluation #1: 12/12/21 11:29 Elevated troponin is likely a type II troponin leak. ED Medical Decision Making - Lab Data Result diagrams: 12/12/21 09:23 12/12/21 09:23 Vital Signs 12/12/21 12/12/21 08:30 10:20 Temperature 98.3 F 98.1 F Pulse Rate 93 H 79 Respiratory 19 29 H Rate Blood Pressure 145/113 102/80 [Left] O2 Sat by Pulse 95 95 Oximetry Lab Results 12/12/21 12/12/21 12/12/21 Range/Units 09:23 09:23 09:23 WBC 8.3 (4.5-11.0) K/mm3 RBC 2.79 L (3.65-5.03) M/mm3 Hgb 8.2 L (11.8-15.2) gm/dl Hct 25.5 L (35.5-45.6) % MCV 92 (84-94) fl MCH 29 (28-32) pg MCHC 32 (32-34) % RDW 14.8 (13.2-15.2) % Plt Count 337 (140-440) K/mm3 Lymph % (Auto) 8.7 L (13.4-35.0) % Taylor % (Auto) 9.3 H (0.0-7.3) % Eos % (Auto) 0.1 (0.0-4.3) % Baso % (Auto) 0.6 (0.0-1.8) % Lymph # (Auto) 0.7 L (1.2-5.4) K/mm3 Taylor # (Auto) 0.8 (0.0-0.8) K/mm3 Eos # (Auto) 0.0 (0.0-0.4) K/mm3 Baso # (Auto) 0.0 (0.0-0.1) K/mm3 Seg Neutrophils % 81.3 H (40.0-70.0) % Seg Neutrophils # 6.8 (1.8-7.7) K/mm3 PT 15.4 H (12.2-14.9) Sec. INR 1.09 (0.87-1.13) Sodium 144 (137-145) mmol/L Potassium 6.9 H* (3.6-5.0) mmol/L Chloride 99.0 (98-107) mmol/L Carbon Dioxide 16 L (22-30) mmol/L Anion Gap 36 mmol/L BUN 104 H (9-20) mg/dL Creatinine 23.2 H (0.8-1.3) mg/dL Estimated GFR 2 ml/min BUN/Creatinine Ratio 4 % Glucose 97 (75-100) mg/dL Calcium 7.7 L (8.4-10.2) mg/dL Magnesium 2.10 (1.7-2.3) mg/dL Total Bilirubin 0.40 (0.1-1.2) mg/dL AST 25 (5-40) units/L ALT 12 (7-56) units/L Alkaline Phosphatase 82 (35-129) units/L Total Creatine Kinase 477 H (55-170) units/L Troponin T 0.811 H* (0.00-0.029) ng/mL Total Protein 6.8 (6.3-8.2) g/dL Albumin 4.1 (3.9-5) g/dL Albumin/Globulin Ratio 1.5 % Triglycerides 68 (2-149) mg/dL Cholesterol 131 (50-199) mg/dL LDL Cholesterol Direct 78 (50-130) mg/dL HDL Cholesterol 39 L (40-59) mg/dL Cholesterol/HDL Ratio 3.35 % - EKG Data -: EKG Interpreted by Ut EKG shows normal: sinus rhythm Rate: normal - EKG Data 12/12/21 11:25 The EKG is interpreted at 08: 48 Sinus rhythm, 90 bpm. Normal axis, normal P wave axis, QTC 5 7 8 ms. First- degree AV block. - Radiology Data Radiology results: pending, report reviewed, image reviewed CHEST 2 VIEWS INDICATION / CLINICAL INFORMATION: Dyspnea. COMPARISON: 11/25/2021 FINDINGS: SUPPORT DEVICES: None. HEART / MEDIASTINUM: There is subtle increased density within the right lower lobe with a nodular-like density overlying the right hemidiaphragm seen on the PA view. This nodular density measures approximately 0.8 cm. LUNGS / PLEURA: No significant pulmonary or pleural abnormality. No pneumothorax. ADDITIONAL FINDINGS: No significant additional findings. IMPRESSION: 1. Subtle increased density within the right lower lobe which may represent early infectious process. Additionally, there is a 0.8 cm nodular density within the right lung base. A follow-up CT of the chest is recommended for further evaluation. Signer Name: Trent Centeno DO Signed: 12/12/2021 9:28 AM Workstation Name: [id number] - Medical Decision Making Differential diagnosis, include but not limited to: Azotemia, uremia, hyperkalemia, metabolic acidosis, end-stage renal disease, anemia of chronic disease, pneumonia, COVID-19 Assessment and plan: 71-year-old gentleman with acute shortness of breath, found to be hyperkalemic, azotemic, uremic, with metabolic acidosis, and a possible right lower lobe pneumonia. Has a first-degree AV block, with prolonged QT, and QTc. Maximal medical therapy for hyperkalemia. Cover empirically with ceftriaxone and azithromycin. Contacted nephrology on-call, Dr. Holley. Discussed history, physical, laboratory studies and clinical impression. He will arrange for emergent hemodialysis. Patient agreeable to admission hospitalization. Hospital physician, Dr. Braga to admit patient to the medical service. Critical Care Time: Yes Critical care time in (mins) excluding proc time.: 35 Critical care attestation.: If time is entered above; I have spent that time in minutes in the direct care of this critically ill patient, excluding procedure time. ED Disposition Clinical Impression: Shortness of breath, Hyperkalemia, ESRD (end stage renal disease), Abnormal chest x-ray, Azotemia, Uremia, Metabolic acidosis, Missed dialysis Disposition: 09 ADMITTED INPATIENT Is pt being admited?: Yes Does the pt Need Aspirin: Yes Condition: Serious
[2021-12-12 10:22] LABS: Basophils % (Auto) 0.6 % (0.0-1.8); Eosinophils % (Auto) 0.1 % (0.0-4.3); Hematocrit 25.5 % (35.5-45.6); Hemoglobin 8.2 gm/dl (11.8-15.2); Lymphocytes # (Auto) 0.7 K/mm3 (1.2-5.4); Lymphocytes % (Auto) 8.7 % (13.4-35.0); Mean Corpuscular HGB Conc 32 % (32-34); Mean Corpuscular Volume 92 fl (84-94); Monocytes # (Auto) 0.8 K/mm3 (0.0-0.8); Monocytes % (Auto) 9.3 % (0.0-7.3); Platelet Count 337 K/mm3 (140-440); Red Blood Count 2.79 M/mm3 (3.65-5.03); Red Cell Distribution Width 14.8 % (13.2-15.2)
--- NOTE | 2021-12-12 10:32 | XRay Report ---
CHEST 2 VIEWS INDICATION / CLINICAL INFORMATION: Dyspnea. COMPARISON: 11/25/2021 FINDINGS: SUPPORT DEVICES: None. HEART / MEDIASTINUM: There is subtle increased density within the right lower lobe with a nodular-lik e density overlying the right hemidiaphragm seen on the PA view. This nodular density measures approx imately 0.8 cm. LUNGS / PLEURA: No significant pulmonary or pleural abnormality. No pneumothorax. ADDITIONAL FINDINGS: No significant additional findings. IMPRESSION: 1. Subtle increased density within the right lower lobe which may represent early infectious process. Additionally, there is a 0.8 cm nodular density within the right lung base. A follow-up CT of the ch est is recommended for further evaluation. Signer Name: Trent Centeno DO Signed: 12/12/2021 10:28 AM Workstation Name: [email or web address]
[2021-12-12 10:40] LABS: Alanine Aminotransferase 12 units/L (7-56); Albumin 4.1 g/dL (3.9-5); Blood Urea Nitrogen 104 mg/dL (9-20); Calcium 7.7 mg/dL (8.4-10.2); Hemolysis Index 0
[2021-12-12 10:45] LABS: BUN/Creatinine Ratio 4
[2021-12-12] MEDS ORDERED: SODIUM POLYSTYRENE 15 GM/60 ML ORAL LIQD PO ONE (10:48)
[2021-12-12] MEDS ORDERED: CALCIUM GLUCONATE 1,000 MG in SODIUM CHLORIDE 0.9% 100 ML IV ONE (10:48)
[2021-12-12] MEDS ORDERED: DEXTROSE 50% IN WATER (25GM) 50 ML SYRINGE IV PRN (10:48)
[2021-12-12] MEDS ORDERED: SODIUM BICARB 8.4% 50 MEQ/50 ML SYRINGE IV ONE (10:48)
[2021-12-12] MEDS ORDERED: INSULIN REGULAR, HUMAN 100 UNITS/1 ML IV ONE (10:48)
[2021-12-12] MEDS ORDERED: ALBUTEROL 2.5 MG/3 ML NEBU IH ONE (10:48)
[2021-12-12] MEDS ORDERED: AZITHROMYCIN/NS 500 MG/250 ML 500 MG/250 ML BAG IV ONE (10:49)
[2021-12-12] MEDS ORDERED: cefTRIAXone/NS 1 GM/50 ML 1 GM/50 ML BAG IV ONE (10:49)
[2021-12-12 10:56] LABS: INR 1.09 (0.87-1.13)
[2021-12-12] MEDS ORDERED: CALC GLUCONATE 1GM/NS 100 ML 1 GM/100 ML BAG IV ONE (11:00)
[2021-12-12 11:05] LABS: Chol/HDL Ratio 3.35 %; HDL Cholesterol 39 mg/dL (40-59); LDL Cholesterol,Direct 78 mg/dL (50-130)
[2021-12-12] MEDS ORDERED: ASPIRIN 81 MG TAB CHEW PO ONE (11:31)
--- NOTE | 2021-12-12 11:38 | History and Physical Report ---
History of Present Illness Chief complaint: I am short of breath History of present illness: 71 YO Male with ESRD on HD(M,W,F), Diastolic CHF, HTN, Pulmonary HTN presents ED for evaluation. Patient reports I am short of breath". Patient states that over the past 3 to 4 days he has experienced shortness of breath. Patient also reports decreased exercise tolerance, dyspnea on exertion as well as dyspnea at rest. No additional symptoms reported. EMS was notified and upon arrival the patient was found to be in distress and subsequent transported to [facility] for further care and evaluation of the aforementioned symptoms. The patient was seen and evaluated in the emergency department. All lab and imaging studies r eviewed. Patient found to have exacerbation of pulmonary hypertension with concomitant end-stage renal disease, fluid overload, hyperkalemia with EKG changes consistent with prolonged QT interval as well as prolonged AL interval. Patient admitted to medical floor due to increased risk of worsening symptoms after medical stabilization. Nephrology team consulted in ED for urgent dialysis. Patient denies fever, chills, chest pain, palpitation, productive cough, skin rash, recent contact, prolonged travel, unilateral leg swelling, calf pain, individual/family history of DVT/PE/bleeding/blood clotting disorders, or known exposure to COVID-19. Prior admission on 08/24/2021 reviewed. All medication listed at time of admission has been reconciled. Advanced care planning conducted in ED. Past History Past Medical History: ESRD, heart failure, hyperthyroidism, other (See HPI) Past Surgical History: Other (Dialysis access) Social history: Family history: diabetes, hypertension Medications and Allergies Allergies Allergy/AdvReac Type Severity Reaction Status Date / Time No Known Allergies Allergy Verified 12/12/21 10:51 Home Medications Medication Instructions Recorded Confirmed Last Taken Type Tamsulosin [Flomax] 0.4 mg PO DAILY 06/01/21 06/01/21 05/31/21 08:00 History hydrALAZINE [Apresoline TAB] 100 mg PO TID 06/01/21 06/01/21 05/31/21 14:00 History oxyCODONE /ACETAMINOPHEN [Percocet 1 tab PO Q6HR PRN 06/01/21 06/01/21 05/31/21 08:00 History 5/325 mg] sevelamer HCL [Sevelamer HCl] 800 mg PO TIDAC 0206/01/21 05/31/21 14:00 History diphenhydrAMINE [Benadryl CAP] 25 mg PO Q6H PRN 3 Days #12 capsule 06/02/21 Unknown Rx Aspirin EC [Halfprin EC] 81 mg PO QDAY 30 Days #30 tablet 08/25/21 Unknown Rx AtorvaSTATin [Lipitor] 20 mg PO QHS 30 Days #30 tablet 08/25/21 Unknown Rx ISOSORBIDE MONOnitrate [Imdur ER] 30 mg PO QDAY 30 Days #30 tablet 08/25/21 Unknown Rx Metoprolol [Lopressor TAB] 25 mg PO BID 30 Days #60 tablet 08/25/21 Unknown Rx NIFEdipine XL [Procardia Xl] 60 mg PO QDAY 30 Days #30 tablet 08/25/21 Unknown Rx Albuterol Mdi (or & Nicu Only) 2 puff IH QID PRN #8.5 gram 11/26/21 Unknown Rx [ProAir HFA Inhaler] Amoxicillin/K Clav Tab [Augmentin 1 tab PO Q12HR #14 tab 11/26/21 Unknown Rx 875 mg] Active Meds: Active Medications Dextrose (Dextrose 50% In Water (25gm) 50 Ml Syringe) 50 ml IV Q30MIN PRN; Protocol PRN Reason: Hypoglycemia Azithromycin (Zithromax/Ns) 500 mg in 250 mls @ 250 mls/hr IV ONCE ONE; Protocol Stop: 12/12/21 11:48 Review of Systems Constitutional: no weight loss, no weight gain, no fever, no chills Ears, nose, mouth and throat: no ear pain, no tinnitis, no nose pain, no nasal congestion Cardiovascular: shortness of breath, no chest pain, no orthopnea Respiratory: no cough, no cough with sputum, no excessive sputum, no hemoptysis Gastrointestinal: no abdominal pain, no nausea, no vomiting, no diarrhea, no constipation Genitourinary Male: no hematuria, no flank pain, no discharge, no urinary frequency, no urinary hesitancy Musculoskeletal: no low back pain Integumentary: no rash, no pruritis, no redness, no sores, no wounds Neurological: no head injury, no transient paralysis, no weakness, no parathesias, no tingling Psychiatric: no anxiety, no change in sleep habits, no insomnia Endocrine: no cold intolerance, no heat intolerance, no polyphagia, no excessive thirst Hematologic/Lymphatic: no easy bruising, no easy bleeding Allergic/Immunologic: no urticaria Exam - Constitutional Vitals: Temp Pulse Resp BP Pulse Ox 98.1 F 79 29 H 102/80 95 12/12/21 10:20 12/12/21 10:20 12/12/21 10:20 12/12/21 10:20 12/12/21 10:20 General appearance: Present: mild distress - EENT Eyes: Present: PERRL ENT: hearing intact, clear oral mucosa, hearing decreased - Neck Neck: Present: supple, normal ROM - Respiratory Respiratory effort: normal Respiratory: bilateral: diminished - Cardiovascular Heart Sounds: Present: S1 & S2. Absent: rub, click - Extremities Extremities: pulses symmetrical, No edema Peripheral Pulses: within normal limits - Abdominal General gastrointestinal: Present: soft, non-tender, non-distended, normal bowel sounds Male genitourinary: Present: normal - Integumentary Integumentary: Present: clear, dry - Musculoskeletal Musculoskeletal: generalized weakness - Psychiatric Psychiatric: appropriate mood/affect, cooperative - Neurologic Neurologic: CNII-XII intact HEART Score - HEART Score Troponin: Troponin T 0.811 ng/mL (0.00-0.029) H* 12/12/21 09:23 Results - Labs CBC & Chem 7: 12/12/21 09:23 12/12/21 09:23 Labs: Abnormal lab results 12/12/21 12/12/21 12/12/21 Range/Units 09:23 09:23 09:23 RBC 2.79 L (3.65-5.03) M/mm3 Hgb 8.2 L (11.8-15.2) gm/dl Hct 25.5 L (35.5-45.6) % Lymph % (Auto) 8.7 L (13.4-35.0) % Rich % (Auto) 9.3 H (0.0-7.3) % Lymph # (Auto) 0.7 L (1.2-5.4) K/mm3 Seg Neutrophils % 81.3 H (40.0-70.0) % PT 15.4 H (12.2-14.9) Sec. Potassium 6.9 H* (3.6-5.0) mmol/L Carbon Dioxide 16 L (22-30) mmol/L BUN 104 H (9-20) mg/dL Creatinine 23.2 H (0.8-1.3) mg/dL Calcium 7.7 L (8.4-10.2) mg/dL Total Creatine Kinase 477 H (55-170) units/L Troponin T 0.811 H* (0.00-0.029) ng/mL HDL Cholesterol 39 L (40-59) mg/dL Assessment and Plan - Patient Problems (1) ESRD (end stage renal disease) Current Visit: No Status: Acute Plan to address problem: Nephrology team consulted in ED for urgent dialysis, strict I's/O, monitoring output every shift, daily, blood pressure control, avoid nephrotoxic agents (2) Pulmonary hypertension Current Visit: Yes Status: Acute Plan to address problem: Supplemental oxygen, supportive care. (3) Fluid overload Current Visit: Yes Status: Acute Qualifiers: Hypervolemia type: unspecified Qualified Code(s): E87.70 - Fluid overload, unspecified Plan to address problem: Urgent dialysis, strict I's/O, supportive care. (4) Hyperkalemia Current Visit: Yes Status: Acute Plan to address problem: Calcium gluconate, Kayexalate, serial EKG, remote telemetry monitoring. Urgent dialysis. (5) EKG abnormalities Current Visit: Yes Status: Acute Plan to address problem: Urgent dialysis, treat hyperkalemia, supportive care. (6) DVT prophylaxis Current Visit: Yes Status: Acute Plan to address problem: SCD to bilateral lower extremities while in bed (7) Advance care planning Current Visit: Yes Status: Acute Plan to address problem: Disease education done, care plan discussed, diagnosis discussed, prognosis discussed, patient is full code. Patient knowledges understanding and agreement with care plan, +30 minutes. (8) Preventative health care Current Visit: Yes Status: Acute Plan to address problem: Patient counseled regarding medication compliance, outpatient follow-up with primary care physician for all age and risk factor appropriate screening test. +30 minutes.
[2021-12-12] MEDS ORDERED: ALBUTEROL 2.5 MG/3 ML NEBU IH PRN (11:40)
[2021-12-12] MEDS ORDERED: HYDROmorphone 0.5 MG/0.5 ML INJ IV PRN (11:40)
[2021-12-12] MEDS ORDERED: ONDANSETRON 4 MG/2 ML INJ IV PRN (11:40)
[2021-12-12] MEDS ORDERED: oxyCODONE /ACETAMINOPHEN 5-325MG TAB PO PRN (11:40)
[2021-12-12] MEDS ORDERED: ACETAMINOPHEN 325 MG TAB PO PRN (11:40)
[2021-12-12] MEDS ORDERED: diphenhydrAMINE 25 MG CAP PO PRN (11:44)
--- NOTE | 2021-12-12 16:03 | Consultation ---
History of Present Illness - Reason for Consult Consult date: 12/12/21 end stage renal disease, hyperkalemia - History of Present Illness The patient is a 71 YO AAM with known history of Hypertension, Enlarged prostate, Anemia and ESRD on hemodialysis (MWF) who presented to [facility] ED 12/12/21 with complaining of shortness of breath for the past few days. Patient is a very poor historian. He denies any chest pain, orthopnea, cough, fever, chills, headache, dizziness, diaphoresis, N, V, D, abd pain or hemoptysis. Patient missed hemodialysis for the past week, he couldn't tell me the reason. Work-up in the ED: Potassium 6.9, BUN 104, Creatinine 23, Hb 8.2 and BNP >70,000. CTA showed pulmonary edema and no PE. Nephrology was consulted for ESRD management. Past History Past Medical History: other (See HPI.) Medications and Allergies Allergies Allergy/AdvReac Type Severity Reaction Status Date / Time No Known Allergies Allergy Verified 12/12/21 10:51 Home Medications Medication Instructions Recorded Confirmed Last Taken Type Tamsulosin [Flomax] 0.4 mg PO DAILY 06/01/21 06/01/21 05/31/21 08:00 History hydrALAZINE [Apresoline TAB] 100 mg PO TID 06/01/21 06/01/21 05/31/21 14:00 History oxyCODONE /ACETAMINOPHEN [Percocet 1 tab PO Q6HR PRN 06/01/21 06/01/21 05/31/21 08:00 History 5/325 mg] sevelamer HCL [Sevelamer HCl] 800 mg PO TIDAC 06/01/21 06/01/21 05/31/21 14:00 History diphenhydrAMINE [Benadryl CAP] 25 mg PO Q6H PRN 3 Days #12 capsule 06/02/21 Unknown Rx Aspirin EC [Halfprin EC] 81 mg PO QDAY 30 Days #30 tablet 08/25/21 Unknown Rx AtorvaSTATin [Lipitor] 20 mg PO QHS 30 Days #30 tablet 08/25/21 Unknown Rx ISOSORBIDE MONOnitrate [Imdur ER] 30 mg PO QDAY 30 Days #30 tablet 08/25/21 Unknown Rx Metoprolol [Lopressor TAB] 25 mg PO BID 30 Days #60 tablet 08/25/21 Unknown Rx NIFEdipine XL [Procardia Xl] 60 mg PO QDAY 30 Days #30 tablet 08/25/21 Unknown Rx Albuterol Mdi (or & Nicu Only) 2 puff IH QID PRN #8.5 gram 11/26/21 Unknown Rx [ProAir HFA Inhaler] Amoxicillin/K Clav Tab [Augmentin 1 tab PO Q12HR #14 tab 11/26/21 Unknown Rx 875 mg] Active Meds: Active Medications Acetaminophen (Acetaminophen 325 Mg Tab) 650 mg PO Q4H PRN PRN Reason: Pain MILD(1-3)/Fever >100.5/CARREON Albuterol (Albuterol 2.5 Mg/3 Ml Nebu) 2.5 mg IH Q4HRT PRN PRN Reason: Shortness Of Breath Aspirin (Aspirin Ec 81 Mg Tab) 81 mg PO QDAY [facility] Atorvastatin Calcium (Atorvastatin 20 Mg Tab) 20 mg PO QHS [facility] Dextrose (Dextrose 50% In Water (25gm) 50 Ml Syringe) 50 ml IV Q30MIN PRN; Protocol PRN Reason: Hypoglycemia Last Admin: 12/12/21 12:43 Dose: 50 ml Diphenhydramine HCl (Diphenhydramine 25 Mg Cap) 25 mg PO Q6H PRN PRN Reason: Itching Hydralazine HCl (Hydralazine 100 Mg Tab) 100 mg PO TID [facility] Hydromorphone HCl (Hydromorphone 0.5 Mg/0.5 Ml Inj) 0.5 mg IV Q23H PRN PRN Reason: Pain , Severe (7-10) Isosorbide Mononitrate (Isosorbide Mononitrate Er 30 Mg Tab) 30 mg PO QDAY [facility] Metoprolol Tartrate (Metoprolol Tartrate 25 Mg Tab) 25 mg PO BID [facility] Nifedipine (Nifedipine Xl 60 Mg Tab) 60 mg PO QDAY [facility] Ondansetron HCl (Ondansetron 4 Mg/2 Ml Inj) 4 mg IV Q8H PRN PRN Reason: Nausea And Vomiting Oxycodone/Acetaminophen (Oxycodone /Acetaminophen 5-325mg Tab) 1 tab PO Q16H PRN PRN Reason: Pain, Moderate (4-6) Sevelamer Carbonate (Sevelamer Carbonate 800 Mg Tab) 800 mg PO TIDAC MAMIE Sodium Chloride (Sodium Chloride 0.9% 10 Ml Flush Syringe) 10 ml IV BID MAMIE Sodium Chloride (Sodium Chloride 0.9% 10 Ml Flush Syringe) 10 ml IV PRN PRN PRN Reason: LINE FLUSH Tamsulosin HCl (Tamsulosin 0.4 Mg Cap) 0.4 mg PO DAILY MAMIE Review of Systems All systems: negative Exam - Vital Signs Vital signs: Vital Signs Temp Pulse Resp BP Pulse Ox 98.3 F 93 H 19 145/113 95 12/12/21 08:30 12/12/21 08:30 12/12/21 08:30 12/12/21 08:30 12/12/21 08:30 Results - Lab Results 12/12/21 09:23 12/12/21 09:23 Most recent lab results Calcium 7.7 mg/dL (8.4-10.2) L 12/12/21 09:23 Magnesium 2.10 mg/dL (1.7-2.3) 12/12/21 09:23 Assessment and Plan 1. ESRD: Patient is on maintenance hemodialysis, MWF schedule. Hemodialysis: 12/12. 2. FEN: Hyperkalemia, 2/2 missed HD, s/p HD today. UF with HD as tolerated. Monitor lytes and volume status. 3. Volume overload: Clinical findings. BNP >70,000. CTA findings. Volume control thru HD. 4. Hypertension: Continue home meds. Follow BP. 5. Anemia, POA: Chronic. Epogen with HD as needed. Monitor. 6. Medical non-compliance: Counseled. Subjective: Patient was seen and examined at the bedside. Examination: General appearance: well-developed, well nourished, appears stated age, not in distress HEENT: [place] Neck: trachea midline Respiratory: rales heard Heart: S1S2, regular, no murmur Abdomen: soft, bowel sounds heard, NT, no palpable mass Integumentary: no obvious rash Neurologic: AO, non-focal Ext: trace LE edema Hemodialysis access: L FA AVF
[2021-12-12 16:11] LABS: Hepatitis B Surface Antigen Reactive (Negative); Hepatitis C Virus Antibody Non-Reactive (NonReactive)
[2021-12-12] MEDS ORDERED: NON-FORMULARY EACH (Sevelamer Hcl [Sevelamer Hcl] 800 MG Tablet) PO SCH (16:30)
[2021-12-12] MEDS: hydrALAZINE 100 MG TAB PO SCH (20:11)
[2021-12-12] MEDS: METOPROLOL TARTRATE 25 MG TAB PO SCH (22:10)
--- NOTE | 2021-12-12 22:20 | Cat Scan Report ---
CTA CHEST WITH CONTRAST INDICATION / CLINICAL INFORMATION: dyspnea 100ml of [id number]. TECHNIQUE: Axial CT images were obtained through the chest after injection of IV contrast. 3 plane RI P and/or 3D reconstructions were produced. All CT scans at this location are performed using CT dose reduction for ALARA by means of automated exposure control. COMPARISON: 2 views of the chest performed today. FINDINGS: Motion artifact limits this exam. PULMONARY EMBOLUS: There is good opacification of the pulmonary arteries without evidence of emboli t hrough the segmental/proximal subsegmental level. THORACIC AORTA: Normal caliber of the aorta with moderate atherosclerosis throughout its course. Ther e is mild atherosclerosis along the great vessels. HEART: Mild enlargement of the heart without a significant pericardial effusion. CORONARY ARTERY CALCIFICATION: Present -- Severe. MEDIASTINUM / RADHA: No significant abnormality. PLEURA: Small pleural effusions. No pneumothorax. LUNGS: Bilateral ground glass opacities are most notable along the lower lobes. A solid noncalcified nodule is seen posteriorly and inferiorly along the right lower lobe on image 82 of series 2, measuri ng 9.9 x 8.1 mm and correlating with the prior radiographic abnormality. No other significant abnorma lity. ADDITIONAL FINDINGS: None. UPPER ABDOMEN: No acute findings. There are multiple bilateral probable renal cysts with mild/moderat e renal parenchymal thinning. SKELETAL STRUCTURES: No acute findings. There is moderate spondylosis. IMPRESSION: 1. Limited exam due to motion artifact without evidence of pulmonary emboli. 2. Mild cardiomegaly with suspected pulmonary edema. 3. Single incidental pulmonary nodule(s) in the right lower lobe measuring 9.9 x 8.1 mm with solid c haracteristics. Recommendation according to Fleischner Society 2017 Guidelines: Low Risk or High Risk Patient: Consider CT at 3 months, PET/CT, or tissue sampling. This finding could be related to suspected bilateral pulmonary edema. Reevaluation with a CT chest wi thout contrast in 6-12 weeks is recommended. 4. Additional findings as above. Signer Name: Bao Mares MD Signed: 12/12/2021 10:15 PM Workstation Name: [id number]
[2021-12-12] MEDS ORDERED: EPOETIN ALFA-EPBX 20,000 UNIT/1 ML VIAL IV PRN (23:46)
[2021-12-12] MEDS ORDERED: SODIUM CHLORIDE 0.9% 100 ML IV PRN (23:46)
[2021-12-12] MEDS ORDERED: HEPARIN 10,000 UNITS/10 ML VIAL IV PRN (23:46)
[2021-12-13] MEDS: METOPROLOL TARTRATE 25 MG TAB PO SCH ×2 (09:32→22:55)
[2021-12-13] MEDS: NIFEdipine XL 60 MG TAB PO SCH (09:32)
[2021-12-13] MEDS: ASPIRIN EC 81 MG TAB PO SCH (09:32)
[2021-12-13] MEDS: TAMSULOSIN 0.4 MG CAP PO SCH (09:32)
[2021-12-13] MEDS: SEVELAMER CARBONATE 800 MG TAB PO SCH ×4 (09:37→16:32)
[2021-12-13] MEDS: hydrALAZINE 100 MG TAB PO SCH ×4 (09:37→22:54)
--- NOTE | 2021-12-13 10:34 | Progress Note ---
Assessment and Plan Assessment and plan: The patient is a 71 YO AAM with known history of Hypertension, Enlarged prostate, Anemia and ESRD on hemodialysis (MWF) who presented to [facility] ED 12/12/21 with complaining of shortness of breath for the past few days. Patient is a very poor historian. He denies any chest pain, orthopnea, cough, fever, chills, headache, dizziness, diaphoresis, N, V, D, abd pain or hemoptysis. Patient missed hemodialysis for the past week, he couldn't tell me the reason. Work-up in the ED: Potassium 6.9, BUN 104, Creatinine 23, Hb 8.2 and BNP >70,000. CTA showed pulmonary edema and no PE. Nephrology was consulted for ESRD management. ESRD COVID-19 infection Pulmonary hypertension Fluid overload Hyperkalemia 12/13/2021. COVID PCR testing was found to be positive. We will start IV dexamethasone. Check inflammatory markers. Consult ID for further evaluation. Patient does not appear to be hypoxic at present. Patient also to undergo hemodialysis today per nephrology. We will discuss arrangements with case management for outpatient hemodialysis given the COVID-positive PCR History Interval history: No new issues overnight Hospitalist Physical - Constitutional Vitals: Temp Pulse Resp BP Pulse Ox 98.4 F 83 20 149/61 95 12/13/21 04:42 12/13/21 04:42 12/13/21 04:42 12/13/21 04:42 12/13/21 10:00 General appearance: Present: mild distress - EENT Eyes: Present: PERRL, EOM intact ENT: hearing intact, clear oral mucosa, dentition normal - Neck Neck: Present: supple, normal ROM - Respiratory Respiratory effort: normal Respiratory: bilateral: CTA - Cardiovascular Rhythm: regular Heart Sounds: Present: S1 & S2. Absent: gallop, rub - Extremities Extremities: no ischemia, No edema, Full ROM - Abdominal General gastrointestinal: soft, non-tender, non-distended, normal bowel sounds - Integumentary Integumentary: Present: clear, warm, dry - Neurologic Neurologic: CNII-XII intact, moves all extremities HEART Score - HEART Score Troponin: Troponin T 0.811 ng/mL (0.00-0.029) H* 12/12/21 09:23 Results - Labs CBC & Chem 7: 12/12/21 09:23 12/12/21 09:23 Labs: Laboratory Last Values WBC 8.3 K/mm3 (4.5-11.0) 12/12/21 09: RBC 2.79 M/mm3 (3.65-5.03) L 12/12/21 09:23 Hgb 8.2 gm/dl (11.8-15.2) L 12/12/21 09: Hct 25.5 % (35.5-45.6) L 12/12/21 09:23 MCV 92 fl (84-94) 12/12/21 09: MCH 29 pg (28-32) 12/12/21 09: MCHC 32 % (32-34) 12/12/21 09: RDW 14.8 % (13.2-15.2) 12/12/21 09: Plt Count 337 K/mm3 (140-440) 12/12/21 09:23 Lymph % (Auto) 8.7 % (13.4-35.0) L 12/12/21 09: [place] % (Auto) 9.3 % (0.0-7.3) H 12/12/21 09:23 Eos % (Auto) 0.1 % (0.0-4.3) 12/12/21 09: Baso % (Auto) 0.6 % (0.0-1.8) 12/12/21 09: Lymph # (Auto) 0.7 K/mm3 (1.2-5.4) L 12/12/21 09: [place] # (Auto) 0.8 K/mm3 (0.0-0.8) 12/12/21 09:23 Eos # (Auto) 0.0 K/mm3 (0.0-0.4) 12/12/21 09: Baso # (Auto) 0.0 K/mm3 (0.0-0.1) 12/12/21 09: Seg Neutrophils % 81.3 % (40.0-70.0) H 12/12/21 09: Seg Neutrophils # 6.8 K/mm3 (1.8-7.7) 12/12/21 09: PT 15.4 Sec. (12.2-14.9) H 12/12/21 09:23 INR 1.09 (0.87-1.13) 12/12/21 09:23 Sodium 144 mmol/L (137-145) 12/12/21 09:23 Potassium 6.9 mmol/L (3.6-5.0) H* 12/12/21 09:23 Chloride 99.0 mmol/L (98-107) 12/12/21 09:23 Carbon Dioxide 16 mmol/L (22-30) L 12/12/21 09:23 Anion Gap 36 mmol/L 12/12/21 09:23 BUN 104 mg/dL (9-20) H 12/12/21 09:23 Creatinine 23.2 mg/dL (0.8-1.3) H 12/12/21 09:23 Estimated GFR 2 ml/min 12/12/21 09:23 BUN/Creatinine Ratio 4 % 12/12/21 09:23 Glucose 97 mg/dL (75-100) 12/12/21 09:23 POC Glucose 74 mg/dL (70-105) 12/12/21 12:03 Lactic Acid 3.50 mmol/L (0.7-2.0) H* 12/12/21 12:10 Calcium 7.7 mg/dL (8.4-10.2) L 12/12/21 09:23 Magnesium 2.10 mg/dL (1.7-2.3) 12/12/21 09:23 Total Bilirubin 0.40 mg/dL (0.1-1.2) 12/12/21 09:23 AST 25 units/L (5-40) 12/12/21 09:23 ALT 12 units/L (7-56) 12/12/21 09:23 Alkaline Phosphatase 82 units/L (35-129) 12/12/21 09:23 Total Creatine Kinase 477 units/L (55-170) H 12/12/21 09:23 Troponin T 0.811 ng/mL (0.00-0.029) H* 12/12/21 09:23 NT-Pro-B Natriuret Pep > 12061 pg/mL (0-900) H 12/12/21 09:23 Total Protein 6.8 g/dL (6.3-8.2) 12/12/21 09:23 Albumin 4.1 g/dL (3.9-5) 12/12/21 09:23 Albumin/Globulin Ratio 1.5 % 12/12/21 09:23 Triglycerides 68 mg/dL (2-149) 12/12/21 09:23 Cholesterol 131 mg/dL (50-199) 12/12/21 09:23 LDL Cholesterol Direct 78 mg/dL (50-130) 12/12/21 09:23 HDL Cholesterol 39 mg/dL (40-59) L 12/12/21 09:23 Cholesterol/HDL Ratio 3.35 % 12/12/21 09:23 SARS-CoV-2 (PCR) Positive (Negative) A 12/13/21 09:42 Hepatitis A IgM Ab Non-reactive (NonReactive) 12/12/21 12:10 Hep Bs Antigen Reactive (Negative) 12/12/21 12:10 Hep B Core IgM Ab Non-reactive (NonReactive) 12/12/21 12:10 Hepatitis C Antibody Non-reactive (NonReactive) 12/12/21 12:10 Microbiology: Microbiology 12/12/21 12:10 Peripheral/Venous Blood Culture - Preliminary Culture in Progress 12/12/21 12:10 Peripheral/Venous Blood Culture - Preliminary Culture in Progress Garcia/IV: Voiding Method Urinal Active Medications - Current Medications Current Medications: Generic Name Dose Route Start Last Admin Trade Name Freq PRN Reason Stop Dose Admin Acetaminophen 650 mg 12/12/21 11:40 Acetaminophen 325 Mg Tab PO Q4H PRN Pain MILD(1-3)/Fever >100.5/CARREON Albuterol 2.5 mg 12/12/21 11:40 12/13/21 01:00 Albuterol 2.5 Mg/3 Ml Nebu IH 2.5 mg Q4HRT PRN Administration Shortness Of Breath Aspirin 81 mg 12/13/21 10:00 12/13/21 09:32 Aspirin Ec 81 Mg Tab PO 81 mg QDAY MAMIE Administration Atorvastatin Calcium 20 mg 12/12/21 22:00 12/12/21 22:10 Atorvastatin 20 Mg Tab PO 20 mg QHS MAMIE Administration Dextrose 50 ml 12/12/21 10:48 12/12/21 12:43 Dextrose 50% In Water (25gm) 50 Ml Syringe IV 50 ml Q30MIN PRN Administration Hypoglycemia Protocol Diphenhydramine HCl 25 mg 12/12/21 11:44 Diphenhydramine 25 Mg Cap PO Q6H PRN Itching Epoetin Parviz-epbx 20,000 unit 12/12/21 23:46 Epoetin Parviz-Epbx 20,000 Unit/1 Ml Vial IV RADHA PRN hemodialysis Heparin Sodium (Porcine) 3,000 unit 12/12/21 23:46 Heparin 10,000 Units/10 Ml Vial IV RADHA PRN hemodialysis Hydralazine HCl 100 mg 12/12/21 14:00 12/13/21 09:45 Hydralazine 100 Mg Tab PO Not Given TID MAMIE Hydromorphone HCl 0.5 mg 12/12/21 11:40 Hydromorphone 0.5 Mg/0.5 Ml Inj IV Q23H PRN Pain , Severe (7-10) Sodium Chloride 100 mls @ 999 mls/hr 12/12/21 23:46 Nacl 0.9% IV RADHA PRN Hypotension Isosorbide Mononitrate 30 mg 12/13/21 10:00 12/13/21 09:31 Isosorbide Mononitrate Er 30 Mg Tab PO 30 mg QDAY MAMIE Administration Metoprolol Tartrate 25 mg 12/12/21 22:00 12/13/21 09:32 Metoprolol Tartrate 25 Mg Tab PO 25 mg BID MAMIE Administration Nifedipine 60 mg 12/13/21 10:00 12/13/21 09:32 Nifedipine Xl 60 Mg Tab PO 60 mg QDAY MAMIE Administration Ondansetron HCl 4 mg 12/12/21 11:40 Ondansetron 4 Mg/2 Ml Inj IV Q8H PRN Nausea And Vomiting Oxycodone/Acetaminophen 1 tab 12/12/21 11:40 12/13/21 09:31 Oxycodone /Acetaminophen 5-325mg Tab PO 1 tab Q16H PRN Administration Pain, Moderate (4-6) Sevelamer Carbonate 800 mg 12/12/21 16:30 12/13/21 09:45 Sevelamer Carbonate 800 Mg Tab PO Not Given TIDAC MAMIE Sodium Chloride 10 ml 12/12/21 22:00 12/13/21 09:32 Sodium Chloride 0.9% 10 Ml Flush Syringe IV 10 ml BID MAMIE Administration Sodium Chloride 10 ml 12/12/21 11:40 Sodium Chloride 0.9% 10 Ml Flush Syringe IV PRN PRN LINE FLUSH Tamsulosin HCl 0.4 mg 12/13/21 10:00 12/13/21 09:32 Tamsulosin 0.4 Mg Cap PO 0.4 mg DAILY MAMIE Administration
--- NOTE | 2021-12-13 11:25 | Progress Note ---
Assessment and Plan 1. ESRD: Patient is on maintenance hemodialysis, MWF schedule. Hemodialysis: 12/12. HD today. 2. FEN: Hyperkalemia, 2/2 missed HD, improved with HD. UF with HD as tolerated. Monitor lytes and volume status. 3. Volume overload: Clinical findings. BNP >70,000. CTA findings. Volume control thru HD. 4. Hypertension: Continue home meds. Follow BP. 5. Anemia, POA: Chronic. Epogen with HD as needed. Monitor. 6. Medical non-compliance: Counseled. Subjective: Patient was seen and examined at the bedside. Examination: General appearance: well-developed, well nourished, appears stated age, not in distress HEENT: [place] Neck: trachea midline Respiratory: rales heard Heart: S1S2, regular, no murmur Abdomen: soft, bowel sounds heard, NT, no palpable mass Integumentary: no obvious rash Neurologic: AO, non-focal Ext: trace LE edema Hemodialysis access: L FA AVF Subjective Date of service: 12/13/21 Objective - Vital Signs Vital signs: Vital Signs - 12hr 12/13/21 12/13/21 12/13/21 00:25 00:34 01:07 Temperature 98.1 F Pulse Rate 88 Pulse Rate [ 88 Posterior Bilateral] Respiratory 22 Rate Respiratory 18 Rate [Posterior Bilateral] Blood Pressure 163/54 [Left] O2 Sat by Pulse 95 95 Oximetry 12/13/21 12/13/21 04:42 10:00 Temperature 98.4 F Pulse Rate 83 Pulse Rate [ Posterior Bilateral] Respiratory 20 Rate Respiratory Rate [Posterior Bilateral] Blood Pressure 149/61 [Left] O2 Sat by Pulse 95 95 Oximetry - Lab 12/12/21 09:23 12/13/21 09:42 Most recent lab results Calcium 8.0 mg/dL (8.4-10.2) L 12/13/21 09:42 Magnesium 2.10 mg/dL (1.7-2.3) 12/12/21 09:23 Medications & Allergies - Medications Allergies/Adverse Reactions: Allergies No Known Allergies Allergy (Verified 12/12/21 10:51) Home Medications: Home Medications Medication Instructions Recorded Confirmed Last Taken Type Tamsulosin [Flomax] 0.4 mg PO DAILY 06/01/21 06/01/21 05/31/21 08:00 History hydrALAZINE [Apresoline TAB] 100 mg PO TID 06/01/21 06/01/21 05/31/21 14:00 History oxyCODONE /ACETAMINOPHEN [Percocet 1 tab PO Q6HR PRN 06/01/21 06/01/21 05/31/21 08:00 History 5/325 mg] sevelamer HCL [Sevelamer HCl] 800 mg PO TIDAC 06/01/21 06/01/21 05/31/21 14:00 History diphenhydrAMINE [Benadryl CAP] 25 mg PO Q6H PRN 3 Days #12 capsule 06/02/21 Unknown Rx Aspirin EC [Halfprin EC] 81 mg PO QDAY 30 Days #30 tablet 08/25/21 Unknown Rx AtorvaSTATin [Lipitor] 20 mg PO QHS 30 Days #30 tablet 08/25/21 Unknown Rx ISOSORBIDE MONOnitrate [Imdur ER] 30 mg PO QDAY 30 Days #30 tablet 08/25/21 Unknown Rx Metoprolol [Lopressor TAB] 25 mg PO BID 30 Days #60 tablet 08/25/21 Unknown Rx NIFEdipine XL [Procardia Xl] 60 mg PO QDAY 30 Days #30 tablet 08/25/21 Unknown Rx Albuterol Mdi (or & Nicu Only) 2 puff IH QID PRN #8.5 gram 11/26/21 Unknown Rx [ProAir HFA Inhaler] Amoxicillin/K Clav Tab [Augmentin 1 tab PO Q12HR #14 tab 11/26/21 Unknown Rx 875 mg] Active Medications: Generic Name Dose Route Start Last Admin Trade Name Freq PRN Reason Stop Dose Admin Acetaminophen 650 mg 12/12/21 11:40 Acetaminophen 325 Mg Tab PO Q4H PRN Pain MILD(1-3)/Fever >100.5/CARREON Albuterol 2.5 mg 12/12/21 11:40 12/13/21 01:00 Albuterol 2.5 Mg/3 Ml Nebu IH 2.5 mg Q4HRT PRN Administration Shortness Of Breath Aspirin 81 mg 12/13/21 10:00 12/13/21 09:32 Aspirin Ec 81 Mg Tab PO 81 mg QDAY MAMIE Administration Atorvastatin Calcium 20 mg 12/12/21 22:00 12/12/21 22:10 Atorvastatin 20 Mg Tab PO 20 mg QHS MAMIE Administration Dexamethasone 6 mg 12/13/21 11:00 Dexamethasone 4 Mg/Ml Vial IV DAILY MAMIE Dextrose 50 ml 12/12/21 10:48 12/12/21 12:43 Dextrose 50% In Water (25gm) 50 Ml Syringe IV 50 ml Q30MIN PRN Administration Hypoglycemia Protocol Diphenhydramine HCl 25 mg 12/12/21 11:44 Diphenhydramine 25 Mg Cap PO Q6H PRN Itching Epoetin Parviz-epbx 20,000 unit 12/12/21 23:46 Epoetin Parviz-Epbx 20,000 Unit/1 Ml Vial IV RADHA PRN hemodialysis Heparin Sodium (Porcine) 3,000 unit 12/12/21 23:46 Heparin 10,000 Units/10 Ml Vial IV RADHA PRN hemodialysis Hydralazine HCl 100 mg 12/12/21 14:00 12/13/21 09:45 Hydralazine 100 Mg Tab PO Not Given TID [facility] Hydromorphone HCl 0.5 mg 12/12/21 11:40 Hydromorphone 0.5 Mg/0.5 Ml Inj IV Q23H PRN Pain , Severe (7-10) Sodium Chloride 100 mls @ 999 mls/hr 12/12/21 23:46 Nacl 0.9% IV RADHA PRN Hypotension Isosorbide Mononitrate 30 mg 12/13/21 10:00 12/13/21 09:31 Isosorbide Mononitrate Er 30 Mg Tab PO 30 mg QDAY [facility] Administration Metoprolol Tartrate 25 mg 12/12/21 22:00 12/13/21 09:32 Metoprolol Tartrate 25 Mg Tab PO 25 mg BID MAMIE Administration Nifedipine 60 mg 12/13/21 10:00 12/13/21 09:32 Nifedipine Xl 60 Mg Tab PO 60 mg QDAY MAMIE Administration Ondansetron HCl 4 mg 12/12/21 11:40 Ondansetron 4 Mg/2 Ml Inj IV Q8H PRN Nausea And Vomiting Oxycodone/Acetaminophen 1 tab 12/12/21 11:40 12/13/21 09:31 Oxycodone /Acetaminophen 5-325mg Tab PO 1 tab Q16H PRN Administration Pain, Moderate (4-6) Sevelamer Carbonate 800 mg 12/12/21 16:30 12/13/21 09:45 Sevelamer Carbonate 800 Mg Tab PO Not Given TIDAC MAMIE Sodium Chloride 10 ml 12/12/21 22:00 12/13/21 09:32 Sodium Chloride 0.9% 10 Ml Flush Syringe IV 10 ml BID MAMIE Administration Sodium Chloride 10 ml 12/12/21 11:40 Sodium Chloride 0.9% 10 Ml Flush Syringe IV PRN PRN LINE FLUSH Tamsulosin HCl 0.4 mg 12/13/21 10:00 12/13/21 09:32 Tamsulosin 0.4 Mg Cap PO 0.4 mg DAILY MAMIE Administration
[2021-12-13] MEDS: dexAMETHasone 4 MG/ML VIAL IV SCH (11:28)
[2021-12-13 11:37] LABS: C-Reactive Protein 34.7 mg/dL (0.00-1.30)
--- NOTE | 2021-12-13 12:58 | Consultation ---
History of Present Illness - Reason for Consult Consult date: 12/13/21 COVID-19 Requesting physician: ARNOLD RODRIGUEZ - History of Present Illness The patient is a 71-year-old male with ESRD on HD, CHF, hypertension, chronic hepatitis B was admitted to the hospital with complaints of shortness of breath going on for about 3 to 4 days prior to admission. He missed dialysis for about 1 week. Upon evaluation in the ED, afebrile, labs revealed normal WBC, creatinine was significantly elevated at 23.2 with hyperkalemia. NT proBNP was >70,000, CRP 34.7, LDH 407, troponin 0.8, ferritin 4936. Tested positive for COVID-19. Hence infectious diseases was consulted. Chest x-ray showed subtle right lower lobe pneumonia. CTA chest showed pulmonary edema, single pulmonary nodule. Patient on 2 L oxygen by nasal cannula. Review of Systems: reviewed in the chart, unable to obtain, minimize risk of transmission Past History Past Medical History: other (See HPI.) Past Surgical History: Other (Dialysis access) Social history: Family history: diabetes, hypertension Medications and Allergies Allergies Allergy/AdvReac Type Severity Reaction Status Date / Time No Known Allergies Allergy Verified 12/12/21 10:51 Home Medications Medication Instructions Recorded Confirmed Last Taken Type Tamsulosin [Flomax] 0.4 mg PO DAILY 06/01/21 06/01/21 05/31/21 08:00 History hydrALAZINE [Apresoline TAB] 100 mg PO TID 06/01/21 06/01/21 05/31/21 14:00 History oxyCODONE /ACETAMINOPHEN [Percocet 1 tab PO Q6HR PRN 06/01/21 06/01/21 05/31/21 08:00 History 5/325 mg] sevelamer HCL [Sevelamer HCl] 800 mg PO TIDAC 06/01/21 06/01/21 05/31/21 14:00 History diphenhydrAMINE [Benadryl CAP] 25 mg PO Q6H PRN 3 Days #12 capsule 06/02/21 Unknown Rx Aspirin EC [Halfprin EC] 81 mg PO QDAY 30 Days #30 tablet 08/25/21 Unknown Rx AtorvaSTATin [Lipitor] 20 mg PO QHS 30 Days #30 tablet 08/25/21 Unknown Rx ISOSORBIDE MONOnitrate [Imdur ER] 30 mg PO QDAY 30 Days #30 tablet 08/25/21 Unknown Rx Metoprolol [Lopressor TAB] 25 mg PO BID 30 Days #60 tablet 08/25/21 Unknown Rx NIFEdipine XL [Procardia Xl] 60 mg PO QDAY 30 Days #30 tablet 08/25/21 Unknown Rx Albuterol Mdi (or & Nicu Only) 2 puff IH QID PRN #8.5 gram 11/26/21 Unknown Rx [ProAir HFA Inhaler] Amoxicillin/K Clav Tab [Augmentin 1 tab PO Q12HR #14 tab 11/26/21 Unknown Rx 875 mg] Active Meds: Active Medications Acetaminophen (Acetaminophen 325 Mg Tab) 650 mg PO Q4H PRN PRN Reason: Pain MILD(1-3)/Fever >100.5/CARREON Albuterol (Albuterol 2.5 Mg/3 Ml Nebu) 2.5 mg IH Q4HRT PRN PRN Reason: Shortness Of Breath Last Admin: 12/13/21 01:00 Dose: 2.5 mg Aspirin (Aspirin Ec 81 Mg Tab) 81 mg PO QDAY [facility] Last Admin: 12/13/21 09:32 Dose: 81 mg Atorvastatin Calcium (Atorvastatin 20 Mg Tab) 20 mg PO QHS [facility] Last Admin: 12/12/21 22:10 Dose: 20 mg Dexamethasone (Dexamethasone 4 Mg/Ml Vial) 6 mg IV DAILY [facility] Last Admin: 12/13/21 11:28 Dose: 6 mg Dextrose (Dextrose 50% In Water (25gm) 50 Ml Syringe) 50 ml IV Q30MIN PRN; Protocol PRN Reason: Hypoglycemia Last Admin: 12/12/21 12:43 Dose: 50 ml Diphenhydramine HCl (Diphenhydramine 25 Mg Cap) 25 mg PO Q6H PRN PRN Reason: Itching Epoetin Parviz-epbx (Epoetin Parviz-Epbx 20,000 Unit/1 Ml Vial) 20,000 unit IV RADHA PRN PRN Reason: hemodialysis Heparin Sodium (Porcine) (Heparin 10,000 Units/10 Ml Vial) 3,000 unit IV RADHA PRN PRN Reason: hemodialysis Hydralazine HCl (Hydralazine 100 Mg Tab) 100 mg PO TID [facility] Last Admin: 12/13/21 09:45 Dose: Not Given Hydromorphone HCl (Hydromorphone 0.5 Mg/0.5 Ml Inj) 0.5 mg IV Q23H PRN PRN Reason: Pain , Severe (7-10) Sodium Chloride (Nacl 0.9%) 100 mls @ 999 mls/hr IV RADHA PRN PRN Reason: Hypotension Isosorbide Mononitrate (Isosorbide Mononitrate Er 30 Mg Tab) 30 mg PO QDAY [facility] Last Admin: 12/13/21 09:31 Dose: 30 mg Metoprolol Tartrate (Metoprolol Tartrate 25 Mg Tab) 25 mg PO BID [facility] Last Admin: 12/13/21 09:32 Dose: 25 mg Nifedipine (Nifedipine Xl 60 Mg Tab) 60 mg PO QDAY [facility] Last Admin: 12/13/21 09:32 Dose: 60 mg Ondansetron HCl (Ondansetron 4 Mg/2 Ml Inj) 4 mg IV Q8H PRN PRN Reason: Nausea And Vomiting Oxycodone/Acetaminophen (Oxycodone /Acetaminophen 5-325mg Tab) 1 tab PO Q16H PRN PRN Reason: Pain, Moderate (4-6) Last Admin: 12/13/21 09:31 Dose: 1 tab Sevelamer Carbonate (Sevelamer Carbonate 800 Mg Tab) 800 mg PO TIDAC [facility] Last Admin: 12/13/21 11:28 Dose: 800 mg Sodium Chloride (Sodium Chloride 0.9% 10 Ml Flush Syringe) 10 ml IV BID [facility] Last Admin: 12/13/21 09:32 Dose: 10 ml Sodium Chloride (Sodium Chloride 0.9% 10 Ml Flush Syringe) 10 ml IV PRN PRN PRN Reason: LINE FLUSH Tamsulosin HCl (Tamsulosin 0.4 Mg Cap) 0.4 mg PO DAILY [facility] Last Admin: 12/13/21 09:32 Dose: 0.4 mg Physical Examination - Physical Exam Narrative exam: Physical Exam (reviewed in chart to minimize risk of transmission) Constitutional: deferred Head, Ears, Nose: deferred Eyes: deferred Neck: deferred Oral: deferred Cardiovascular: deferred Respiratory: deferred GI: deferred Musculoskeletal: deferred Skin: deferred Hem/Lymphatic: deferred Psych: deferred Neurological: deferred - Constitutional Vitals: Vital Signs Temp Pulse Resp BP Pulse Ox 98.4 F 83 20 149/61 95 12/13/21 04:42 12/13/21 04:42 12/13/21 04:42 12/13/21 04:42 12/13/21 10:00 Temperature -Last 24 Hours Temperature 98.4 F Temperature 98.1 F Temperature 97.9 F Temperature 98.7 F Temperature 97.5 F Results - Labs CBC & Chem 7: 12/12/21 09:23 12/13/21 09:42 Labs: Abnormal lab results 12/12/21 12/13/21 12/13/21 Range/Units 12:10 09:42 09:42 Chloride 96.5 L (98-107) mmol/L BUN 63 H (9-20) mg/dL Creatinine 16.6 H (0.8-1.3) mg/dL Glucose 113 H (75-100) mg/dL Lactic Acid 3.50 H* (0.7-2.0) mmol/L Calcium 8.0 L (8.4-10.2) mg/dL Ferritin (30.0-300.0) ng/mL Lactate Dehydrogenase (91-180) units/L C-Reactive Protein (0.00-1.30) mg/dL SARS-CoV-2 (PCR) Positive A (Negative) 12/13/21 12/13/21 Range/Units 09:42 09:42 Chloride (98-107) mmol/L BUN (9-20) mg/dL Creatinine (0.8-1.3) mg/dL Glucose (75-100) mg/dL Lactic Acid (0.7-2.0) mmol/L Calcium (8.4-10.2) mg/dL Ferritin 4936.0 H (30.0-300.0) ng/mL Lactate Dehydrogenase 407 H (91-180) units/L C-Reactive Protein 34.70 H (0.00-1.30) mg/dL SARS-CoV-2 (PCR) (Negative) - Imaging and Cardiology Chest x-ray: report reviewed, image reviewed (no significant pneumonia seen) Assessment and Plan Cultures: SARS CoV2 PCR: Positive 12/12/2021 blood culture: No growth so far 12/12/2021 hepatitis B surface antigen: Reactive A/P: 71-year-old male with ESRD on HD, CHF, hypertension, chronic hepatitis B was ad mitted to the hospital with complaints of shortness of breath going on for about 3 to 4 days prior to admission. He missed dialysis for about 1 week: #COVID-19: CRP elevated, ferritin also elevated. Minimal pneumonia on CXR. #Acute hypoxic respiratory failure: Likely combination of missing dialysis causing pulmonary edema, possibly some from COVID-19. NT proBNP was >70,000, CRP 34.7, LDH 407, troponin 0.8, ferritin 4936. #ESRD on HD: Renally adjust antibiotics #Chronic hepatitis B: Labs showed hepatitis B surface antigen positive. Transaminases, albumin normal. Outpt follow up with hepatology or ID clinic. Recs: -Continue IV/PO Dexamethasone x 10 days -Not a candidate for remdesivir due to ESRD -prophylactic anticoagulation based on d-dimer per hospital protocol -Afebrile, no leukocytosis, no significant pneumonia seen on chest x-ray, antibiotics not needed -trend CRP every 2-3 days Thor Valles MD, FACP, [facility] O: [phone] F: [phone] C: [phone]
--- NOTE | 2021-12-13 13:13 | Electrocardiograph Report ---
[facility] Test Date: 2021-12-12 Test Time: 08:48:37 Pat Name: STEVEN RHODES JR Department: Room: A354 2 Gender: M Drag Down: NURSE : 1950 Requested By: FAMILIA HENDRICKSON Order Number: [id number] Reading MD: Baltazar Carreno Measurements Intervals [place] Rate: 90 P: 237 NV: 238 QRS: 54 QRSD: 102 T: -70 QT: 472 QTc: 578 Interpretive Statements Sinus or ectopic atrial rhythm First-degree AV block Possible old anteroseptal infarct ST depression, consider lateral ischemia Compared to ECG 11/26/2021 01:10:16 Blocked PACs no longer evident Electronically Signed On 12-13-2021 13:12:34 EDT by Baltazar Carreno
[2021-12-14 08:26] LABS: Basophils % (Auto) 0.4 % (0.0-1.8); Eosinophils # (Auto) 0.1 K/mm3 (0.0-0.4); Eosinophils % (Auto) 0.7 % (0.0-4.3); Hematocrit 23.6 % (35.5-45.6); Hemoglobin 8.2 gm/dl (11.8-15.2); Lymphocytes # (Auto) 1.3 K/mm3 (1.2-5.4); Lymphocytes % (Auto) 16.7 % (13.4-35.0); Mean Corpuscular HGB Conc 35 % (32-34); Mean Corpuscular Volume 89 fl (84-94); Monocytes # (Auto) 0.7 K/mm3 (0.0-0.8); Monocytes % (Auto) 9.2 % (0.0-7.3); Platelet Count 358 K/mm3 (140-440); Red Blood Count 2.65 M/mm3 (3.65-5.03); Red Cell Distribution Width 14.9 % (13.2-15.2)
[2021-12-14 08:46] LABS: Calcium 7.9 mg/dL (8.4-10.2)
[2021-12-14] MEDS: hydrALAZINE 100 MG TAB PO SCH ×2 (09:03→13:56)
[2021-12-14] MEDS: METOPROLOL TARTRATE 25 MG TAB PO SCH (09:03)
[2021-12-14] MEDS: NIFEdipine XL 60 MG TAB PO SCH (09:03)
[2021-12-14] MEDS: dexAMETHasone 4 MG/ML VIAL IV SCH (09:03)
[2021-12-14] MEDS: TAMSULOSIN 0.4 MG CAP PO SCH (09:03)
[2021-12-14] MEDS: ASPIRIN EC 81 MG TAB PO SCH (09:03)
[2021-12-14] MEDS: SEVELAMER CARBONATE 800 MG TAB PO SCH ×2 (09:03→12:10)
--- NOTE | 2021-12-14 09:28 | Progress Note ---
Assessment and Plan Cultures: SARS CoV2 PCR: Positive 12/12/2021 blood culture: No growth so far 12/12/2021 hepatitis B surface antigen: Reactive A/P: 71-year-old male with ESRD on HD, CHF, hypertension, chronic hepatitis B was admitted to the hospital with complaints of shortness of breath going on for about 3 to 4 days prior to admission. He missed dialysis for about 1 week: #COVID-19: CRP elevated, ferritin also elevated. Minimal pneumonia on CXR. #Acute hypoxic respiratory failure: Likely combination of missing dialysis causing pulmonary edema, possibly some from COVID-19. NT proBNP was >70,000, CRP 34.7, LDH 407, troponin 0.8, ferritin 4936. #ESRD on HD: Renally adjust antibiotics #Chronic hepatitis B: Labs showed hepatitis B surface antigen positive. Transaminases, albumin normal. Outpt follow up with hepatology or ID clinic. Recs: -Continue IV/PO Dexamethasone x 10 days -Not a candidate for remdesivir due to ESRD -prophylactic anticoagulation based on d-dimer per hospital protocol -Afebrile, no leukocytosis, no significant pneumonia seen on chest x-ray, antibiotics not needed. Procalcitonin elevation is likely due to ESRD. -recheck CRP in AM Thor Valles MD, FACP, [facility] O: [phone] F: [phone] C: [phone] Subjective Date of service: 12/14/21 Interval history: No fever. On room air. WBC 7.9, CRP 34.7, LDH 407, ferritin 4936. Objective - Exam Narrative Exam: Physical Exam (reviewed in chart to minimize risk of transmission) Constitutional: deferred Head, Ears, Nose: deferred Eyes: deferred Neck: deferred Oral: deferred Cardiovascular: deferred Respiratory: deferred GI: deferred Musculoskeletal: deferred Skin: deferred Hem/Lymphatic: deferred Psych: deferred Neurological: deferred - Constitutional Vitals: Vital Signs Temp Pulse Resp BP Pulse Ox 98.8 F 75 18 125/39 97 12/14/21 04:29 12/14/21 04:29 12/14/21 04:29 12/14/21 04:29 12/14/21 04:29 Temperature -Last 24 Hours Temperature 98.8 F Temperature 97.2 F Temperature 98.2 F Temperature 97.6 F - Labs CBC & Chem 7: 12/14/21 07:49 12/14/21 07:49 Labs: Abnormal lab results 12/13/21 12/13/21 12/13/21 Range/Units 09:42 09:42 09:42 RBC (3.65-5.03) M/mm3 Hgb (11.8-15.2) gm/dl Hct (35.5-45.6) % MCHC (32-34) % [place] % (Auto) (0.0-7.3) % Seg Neutrophils % (40.0-70.0) % D-Dimer (0-234) ng/mlDDU Chloride 96.5 L (98-107) mmol/L BUN 63 H (9-20) mg/dL Creatinine 16.6 H (0.8-1.3) mg/dL Glucose 113 H (75-100) mg/dL Calcium 8.0 L (8.4-10.2) mg/dL Ferritin 4936.0 H (30.0-300.0) ng/mL Lactate Dehydrogenase (91-180) units/L C-Reactive Protein (0.00-1.30) mg/dL SARS-CoV-2 (PCR) Positive A (Negative) 12/13/21 12/13/21 12/14/21 Range/Units 09:42 22:54 07:49 RBC 2.65 L (3.65-5.03) M/mm3 Hgb 8.2 L (11.8-15.2) gm/dl Hct 23.6 L (35.5-45.6) % MCHC 35 H (32-34) % Marion % (Auto) 9.2 H (0.0-7.3) % Seg Neutrophils % 73.0 H (40.0-70.0) % D-Dimer 1864.95 H (0-234) ng/mlDDU Chloride (98-107) mmol/L BUN (9-20) mg/dL Creatinine (0.8-1.3) mg/dL Glucose (75-100) mg/dL Calcium (8.4-10.2) mg/dL Ferritin (30.0-300.0) ng/mL Lactate Dehydrogenase 407 H (91-180) units/L C-Reactive Protein 34.70 H (0.00-1.30) mg/dL SARS-CoV-2 (PCR) (Negative) 12/14/21 Range/Units 07:49 RBC (3.65-5.03) M/mm3 Hgb (11.8-15.2) gm/dl Hct (35.5-45.6) % MCHC (32-34) % Marion % (Auto) (0.0-7.3) % Seg Neutrophils % (40.0-70.0) % D-Dimer (0-234) ng/mlDDU Chloride 96.3 L (98-107) mmol/L BUN 35 H (9-20) mg/dL Creatinine 10.4 H (0.8-1.3) mg/dL Glucose (75-100) mg/dL Calcium 7.9 L (8.4-10.2) mg/dL Ferritin (30.0-300.0) ng/mL Lactate Dehydrogenase (91-180) units/L C-Reactive Protein (0.00-1.30) mg/dL SARS-CoV-2 (PCR) (Negative)
--- NOTE | 2021-12-14 09:32 | Discharge Summary ---
Providers - Providers Date of Admission: 12/12/21 11:41 Date of discharge: 12/14/21 Attending physician: ARNOLD RODRIGUEZ 12/12/21 11:48 Consult to Physician [CONS] Routine Comment: Consulting Provider: DEB MONTALVO Physician Instructions: Reason For Exam: esrd 12/13/21 10:31 Consult to Physician [CONS] Routine Comment: Consulting Provider: CLINTON ACOSTA Physician Instructions: Reason For Exam: Covid Primary care physician: [employer] Hospitalization Reason for admission: Resp failure Condition: Serious Hospital course: he patient is a 71 YO AAM with known history of Hypertension, Enlarged prostate, Anemia and ESRD on hemodialysis (MWF) who presented to [facility] ED 12/12/21 with complaining of shortness of breath for the past few days. Patient missed hemodialysis for the past week [employer]. Work-up in the ED: Potassium 6.9, BUN 104, Creatinine 23, Hb 8.2 and BNP >70,000. CTA showed pulmonary edema and no PE. The patient was admitted with diagnosis of ESRD with missed HD, COVID-19 pneumonia, pulmonary hypertension, fluid overload and hyperkalemia. Nephrology was consulted and patient underwent urgent hemodialysis. COVID PCR testing was found to be positive. The patient was started on IV dexamethasone and ID was consulted. ID reports patient had minimal pneumonia on chest x-ray. Respiratory failure is likely a combination of missing hemodialysis causing pulmonary edema and possibly some component of COVID-pneumonia. Patient was not a candidate for remdesivir due to ESRD. Infectious disease felt that given no leukocytosis and no significant pneumonia seen on chest x-ray that antibiotics were not needed. Patient is satting 95% on room air and therefore not hypoxic at present. Patient is felt to have received maximal hospital benefit and will be discharged home. Dedicated discharge time 32 minutes Disposition: 01 HOME / SELF CARE / HOMELESS Final Discharge Diagnosis (Prints w/discharge instructions): ESRD with missed HD, COVID-19 pneumonia, pulmonary hypertension, fluid overload and hyperkalemia. Core Measure Documentation - Palliative Care Palliative Care/ Comfort Measures: Not Applicable - Core Measures Any of the following diagnoses?: none Exam - Constitutional Vitals: Temp Pulse Resp BP Pulse Ox 98.8 F 75 18 125/39 97 12/14/21 04:29 12/14/21 04:12/14/21 04:12/14/21 04:29 12/14/21 04:29 General appearance: Present: no acute distress, well-nourished - EENT Eyes: Present: PERRL ENT: hearing intact, clear oral mucosa - Neck Neck: Present: supple, normal ROM - Respiratory Respiratory effort: normal Respiratory: bilateral: CTA - Cardiovascular Heart Sounds: Present: S1 & S2. Absent: rub, click - Extremities Extremities: pulses symmetrical, No edema Peripheral Pulses: within normal limits - Abdominal General gastrointestinal: Present: soft, non-tender, non-distended, normal bowel sounds Male genitourinary: Present: normal - Integumentary Integumentary: Present: clear, warm, dry - Musculoskeletal Musculoskeletal: gait normal, strength equal bilaterally - Psychiatric Psychiatric: appropriate mood/affect, intact judgment & insight - Neurologic Neurologic: CNII-XII intact, moves all extremities Plan Activity: advance as tolerated Weight Bearing Status: Weight Bear as Tolerated Diet: renal Follow up with: PRIMARY CAREMD [Primary Care Provider] - 7 Days CLINTON ACOSTA MD [Staff Physician] - 7 Days DEB MONTALVO MD [Staff Physician] - 7 Days Prescriptions: Dexamethasone 6 mg PO DAILY #10 tab
--- NOTE | 2021-12-14 10:37 | Progress Note ---
Assessment and Plan 1. ESRD: Patient is on maintenance hemodialysis, MWF schedule. Hemodialysis: 12/12, 12/13. Patient wats to wait until sunday for next HD. 2. FEN: Hyperkalemia, 2/2 missed HD, improved with HD. UF with HD as tolerated. Monitor lytes and volume status. 3. Volume overload: Clinical findings. BNP >70,000. CTA findings. Volume control thru HD. 4. Hypertension: Continue home meds. Follow BP. 5. Anemia, POA: Chronic. Epogen with HD as needed. Monitor. 6. Covid positive. 7. Medical non-compliance: Counseled. Subjective: Patient was seen and examined at the bedside. Examination: General appearance: well-developed, well nourished, appears stated age, not in distress HEENT: [place] Neck: trachea midline Respiratory: rales heard Heart: S1S2, regular, no murmur Abdomen: soft, bowel sounds heard, NT, no palpable mass Integumentary: no obvious rash Neurologic: AO, non-focal Ext: trace LE edema Hemodialysis access: L FA AVF Subjective Date of service: 12/14/21 Objective - Vital Signs Vital signs: Vital Signs - 12hr 12/13/21 12/13/21 12/14/21 22:55 23:11 00:00 Temperature 97.2 F L Pulse Rate 78 81 Respiratory 20 Rate Blood Pressure 126/46 113/48 O2 Sat by Pulse 97 Oximetry O2 Sat by Pulse 98 Oximetry [ Posterior Bilateral] 12/14/21 04:29 Temperature 98.8 F Pulse Rate 75 Respiratory 18 Rate Blood Pressure 125/39 O2 Sat by Pulse 97 Oximetry O2 Sat by Pulse Oximetry [ Posterior Bilateral] - Lab 12/14/21 07:49 12/14/21 07:49 Most recent lab results Calcium 7.9 mg/dL (8.4-10.2) L 12/14/21 07:49 Magnesium 2.10 mg/dL (1.7-2.3) 12/12/21 09:23 Medications & Allergies - Medications Allergies/Adverse Reactions: Allergies No Known Allergies Allergy (Verified 12/12/21 10:51) Home Medications: Home Medications Medication Instructions Recorded Confirmed Last Taken Type Tamsulosin [Flomax] 0.4 mg PO DAILY 06/01/21 06/01/21 05/31/21 08:00 History hydrALAZINE [Apresoline TAB] 100 mg PO TID 06/01/21 06/01/21 05/31/21 14:00 History oxyCODONE /ACETAMINOPHEN [Percocet 1 tab PO Q6HR PRN 06/01/21 06/01/21 05/31/21 08:00 History 5/325 mg] sevelamer HCL [Sevelamer HCl] 800 mg PO TIDAC 06/01/21 06/01/21 05/31/21 14:00 History diphenhydrAMINE [Benadryl CAP] 25 mg PO Q6H PRN 3 Days #12 capsule 06/02/21 Unknown Rx Aspirin EC [Halfprin EC] 81 mg PO QDAY 30 Days #30 tablet 08/25/21 Unknown Rx AtorvaSTATin [Lipitor] 20 mg PO QHS 30 Days #30 tablet 08/25/21 Unknown Rx ISOSORBIDE MONOnitrate [Imdur ER] 30 mg PO QDAY 30 Days #30 tablet 08/25/21 Unknown Rx Metoprolol [Lopressor TAB] 25 mg PO BID 30 Days #60 tablet 08/25/21 Unknown Rx NIFEdipine XL [Procardia Xl] 60 mg PO QDAY 30 Days #30 tablet 08/25/21 Unknown Rx Albuterol Mdi (or & Nicu Only) 2 puff IH QID PRN #8.5 gram 11/26/21 Unknown Rx [ProAir HFA Inhaler] Dexamethasone 6 mg PO DAILY #10 tab 12/14/21 Unknown Rx Sevelamer Carbonate [Renvela] 800 mg PO TIDAC tablet 12/14/21 Unknown Rx Active Medications: Generic Name Dose Route Start Last Admin Trade Name Freq PRN Reason Stop Dose Admin Acetaminophen 650 mg 12/12/21 11:40 Acetaminophen 325 Mg Tab PO Q4H PRN Pain MILD(1-3)/Fever >100.5/CARREON Albuterol 2.5 mg 12/12/21 11:40 12/13/21 01:00 Albuterol 2.5 Mg/3 Ml Nebu IH 2.5 mg Q4HRT PRN Administration Shortness Of Breath Aspirin 81 mg 12/13/21 10:00 12/14/21 09:03 Aspirin Ec 81 Mg Tab PO 81 mg QDAY MAMIE Administration Atorvastatin Calcium 20 mg 12/12/21 22:00 12/13/21 22:54 Atorvastatin 20 Mg Tab PO 20 mg QHS MAMIE Administration Dexamethasone 6 mg 12/13/21 11:00 12/14/21 09:03 Dexamethasone 4 Mg/Ml Vial IV 12/22/21 10:01 6 mg DAILY MAMIE Administration Dextrose 50 ml 12/12/21 10:48 12/12/21 12:43 Dextrose 50% In Water (25gm) 50 Ml Syringe IV 50 ml Q30MIN PRN Administration Hypoglycemia Protocol Diphenhydramine HCl 25 mg 12/12/21 11:44 Diphenhydramine 25 Mg Cap PO Q6H PRN Itching Epoetin Parviz-epbx 20,000 unit 12/12/21 23:46 Epoetin Parviz-Epbx 20,000 Unit/1 Ml Vial IV RADHA PRN hemodialysis Heparin Sodium (Porcine) 3,000 unit 12/12/21 23:46 Heparin 10,000 Units/10 Ml Vial IV RADHA PRN hemodialysis Hydralazine HCl 100 mg 12/12/21 14:00 12/14/21 09:03 Hydralazine 100 Mg Tab PO 100 mg TID MAMIE Administration Hydromorphone HCl 0.5 mg 12/12/21 11:40 Hydromorphone 0.5 Mg/0.5 Ml Inj IV Q23H PRN Pain , Severe (7-10) Sodium Chloride 100 mls @ 999 mls/hr 12/12/21 23:46 Nacl 0.9% IV RADHA PRN Hypotension Isosorbide Mononitrate 30 mg 12/13/21 10:00 12/14/21 09:03 Isosorbide Mononitrate Er 30 Mg Tab PO 30 mg QDAY MAMIE Administration Metoprolol Tartrate 25 mg 12/12/21 22:00 12/14/21 09:03 Metoprolol Tartrate 25 Mg Tab PO 25 mg BID MAMIE Administration Nifedipine 60 mg 12/13/21 10:00 12/14/21 09:03 Nifedipine Xl 60 Mg Tab PO 60 mg QDAY MAMIE Administration Ondansetron HCl 4 mg 12/12/21 11:40 Ondansetron 4 Mg/2 Ml Inj IV Q8H PRN Nausea And Vomiting Oxycodone/Acetaminophen 1 tab 12/12/21 11:40 12/13/21 09:31 Oxycodone /Acetaminophen 5-325mg Tab PO 1 tab Q16H PRN Administration Pain, Moderate (4-6) Sevelamer Carbonate 800 mg 12/12/21 16:30 12/14/21 09:03 Sevelamer Carbonate 800 Mg Tab PO 800 mg TIDAC MAMIE Administration Sodium Chloride 10 ml 12/12/21 22:00 12/14/21 09:03 Sodium Chloride 0.9% 10 Ml Flush Syringe IV 10 ml BID MAMIE Administration Sodium Chloride 10 ml 12/12/21 11:40 Sodium Chloride 0.9% 10 Ml Flush Syringe IV PRN PRN LINE FLUSH Tamsulosin HCl 0.4 mg 12/13/21 10:00 12/14/21 09:03 Tamsulosin 0.4 Mg Cap PO 0.4 mg DAILY MAMIE Administration
[2021-12-14 13:38] VITALS: BP 121/40
== END 2021-12-14 15:00 | disposition home or self-care (01) | DRG 177 ==
LOC: ED 08:11 → 3A 11:41
PROVIDERS: ADMIT Internal Medicine; ATTEND Hospitalist
PROC: 5A1D70Z Performance of Urinary Filtration, Intermittent, Less than 6 Hours Per Day (ICD-10-PCS; principal; 2021-12-12)
PROC: 5A1D70Z Performance of Urinary Filtration, Intermittent, Less than 6 Hours Per Day (ICD-10-PCS; 2021-12-13)
DX: U07.1 COVID-19 (principal); J12.82 Pneumonia due to coronavirus disease 2019; J96.01 Acute respiratory failure with hypoxia; N18.6 End stage renal disease; I13.2 Hypertensive heart and chronic kidney disease with heart failure and with stage 5 chronic kidney disease, or end stage renal disease; I50.30 Unspecified diastolic (congestive) heart failure; B18.1 Chronic viral hepatitis B without delta-agent; E87.70 Fluid overload, unspecified; E87.5 Hyperkalemia; Z99.2 Dependence on renal dialysis; D64.9 Anemia, unspecified; E05.90 Thyrotoxicosis, unspecified without thyrotoxic crisis or storm; I27.20 Pulmonary hypertension, unspecified; Z91.14 Patient's other noncompliance with medication regimen; Z83.3 Family history of diabetes mellitus; Z82.49 Family history of ischemic heart disease and other diseases of the circulatory system; Z79.82 Long term (current) use of aspirin; Z91.19 Patient's noncompliance with other medical treatment and regimen
CPT/HCPCS: 36415; 71046; 71275; 80048; 80053; 80061; 80074; 82140; 82550; 82728; 82962; 83615; 83735; 83880; 84145; 84154; 84484; 85025; 85379; 85610; 86140; 87040; 87641; 93005; 94640; 94760; G0378; J3490; Q9967; J0456; J0610; J0696; J1100; J1815; U0003

== ENCOUNTER 2021-12-19 19:09 | Inpatient (IN) | payer MEDICARE ==
--- NOTE | 2021-12-19 20:02 | XRay Report ---
CHEST 1 VIEW 12/19/2021 7:43 PM INDICATION / CLINICAL INFORMATION: Dyspnea. COMPARISON: None available. FINDINGS: SUPPORT DEVICES: None. HEART / MEDIASTINUM: Heart is upper limits normal in size. LUNGS / PLEURA: Bilateral perihilar and lower lobe opacities. Pulmonary vascular congestion. No large pleural effusion. No pneumothorax. ADDITIONAL FINDINGS: No significant additional findings. IMPRESSION: 1. Cardiomegaly and pulmonary opacities suggestive of moderate pulmonary edema. Signer Name: Kana Pollock MD Signed: 12/19/2021 7:58 PM Workstation Name: [id number]
[2021-12-19 20:46] LABS: Hematocrit 27.8 % (35.5-45.6); Hemoglobin 8.8 gm/dl (11.8-15.2); Mean Corpuscular HGB Conc 32 % (32-34); Mean Corpuscular Volume 93 fl (84-94); Platelet Count 489 K/mm3 (140-440); Red Blood Count 2.99 M/mm3 (3.65-5.03); Red Cell Distribution Width 14.9 % (13.2-15.2)
[2021-12-19 21:07] LABS: Albumin 3.9 g/dL (3.9-5); Calcium 7.9 mg/dL (8.4-10.2)
[2021-12-19 21:20] LABS: Band Neutrophils # (Manual) 0.1 K/mm3; Eosinophils % (Manual) 0 % (0.0-4.3); Total Cells Counted 100
[2021-12-19 21:21] LABS: Platelet Estimate Consistent w Auto
--- NOTE | 2021-12-19 22:15 | Emergency Department Report ---
ED Shortness of Breath HPI - General Chief Complaint: Dyspnea/Respdistress Stated Complaint: heart pain Time Seen by Provider: 12/19/21 19:39 Source: patient Mode of arrival: Ambulatory Limitations: No Limitations - History of Present Illness Initial Comments: Patient is a 71-year-old male with history of chronic kidney disease on dialysis Sunday and Sunday presenting with complaint of shortness of breath beginning yesterday. Last dialysis session was Sunday. - Related Data Allergies Allergy/AdvReac Type Severity Reaction Status Date / Time No Known Allergies Allergy Unverified 12/19/21 19:23 ED Review of Systems ROS: Stated complaint: heart pain Other details as noted in HPI Constitutional: denies: chills, fever Respiratory: shortness of breath Cardiovascular: denies: chest pain, palpitations Gastrointestinal: denies: abdominal pain, nausea, diarrhea Genitourinary: denies: urgency, dysuria Musculoskeletal: denies: back pain, joint swelling, arthralgia Skin: denies: rash, lesions Neurological: denies: headache, weakness, paresthesias Psychiatric: denies: anxiety, depression ED Past Medical Hx - Past Medical History Hx Hypertension: Yes Hx Congestive Heart Failure: Yes Hx Renal Disease: Yes - Social History Smoking Status: Unknown if ever smoked ED Physical Exam - General Limitations: No Limitations General appearance: alert, in distress - Head Head exam: Present: atraumatic, normocephalic - Respiratory Respiratory exam: Present: other (bilateral crackles). Absent: respiratory distress - Cardiovascular Cardiovascular Exam: Present: regular rate, normal rhythm, normal heart sounds - GI/Abdominal GI/Abdominal exam: Present: soft. Absent: distended, tenderness - Rectal Rectal exam: Present: deferred - Neurological Exam Neurological exam: Present: alert, oriented X3 - Psychiatric Psychiatric exam: Present: normal affect, normal mood - Skin Skin exam: Present: warm, dry, intact, normal color ED Course Vital Signs 12/19/21 12/19/21 12/19/21 19:18 19:57 20:00 Temperature 97.6 F Pulse Rate 102 H 101 H 97 H Respiratory 22 17 33 H Rate Blood Pressure 176/56 Blood Pressure 184/61 [Right] O2 Sat by Pulse 91 95 98 Oximetry 12/19/21 12/19/21 12/19/21 20:01 20:15 20:31 Temperature Pulse Rate 100 H Respiratory 41 H Rate Blood Pressure 176/56 176/56 176/56 Blood Pressure [Right] O2 Sat by Pulse 97 99 100 Oximetry 12/19/21 12/19/21 20:45 21:01 Temperature Pulse Rate Respiratory Rate Blood Pressure 159/50 159/50 Blood Pressure [Right] O2 Sat by Pulse 100 100 Oximetry ED Medical Decision Making - Lab Data Result diagrams: 12/19/21 20:16 12/19/21 20:16 - Medical Decision Making Chest x-ray findings show pulmonary edema. EKG shows ventricular paced rhythm. Patient placed on BiPAP for increased work of breathing. I discussed the case with on-call mathematician Dr. Milton who will evaluate in the morning to arrange for dialysis. Will admit to hospitalist. Critical Care Time: Yes Critical care time in (mins) excluding proc time.: 35 Critical care attestation.: If time is entered above; I have spent that time in minutes in the direct care of this critically ill patient, excluding procedure time. ED Disposition Clinical Impression: Volume overload, Pulmonary edema Disposition: ADMITTED INPATIENT Is pt being admited?: Yes Condition: Stable Instructions: Pulmonary Edema (ED)
[2021-12-19 22:20] LABS: ABG Base Excess -2.1 mmol/L (-2.0-3.0); ABG HCO3 22.7 mmol/L (20.0-26.0); ABG Methemoglobin 0.3 % (0.0-1.5); ABG Oxygen Saturation 96.7 % (95.0-99.0); ABG PCO2 38.3 mm Hg; ABG PH 7.39 pH Units (7.350-7.450); ABG PO2 90.5 mm Hg (80.0-90.0)
[2021-12-19] MEDS ORDERED: ACETAMINOPHEN 325 MG TAB PO PRN (22:27)
[2021-12-19] MEDS ORDERED: ALBUTEROL 2.5 MG/3 ML NEBU IH PRN (22:27)
[2021-12-19] MEDS ORDERED: MORPHINE 4 MG/1 ML INJ IV PRN (22:27)
[2021-12-19] MEDS ORDERED: MORPHINE 2 MG/1 ML INJ IV PRN (22:27)
[2021-12-19] MEDS ORDERED: ONDANSETRON 4 MG/2 ML INJ IV PRN (22:27)
--- NOTE | 2021-12-19 22:36 | History and Physical Report ---
History of Present Illness Date of examination: 12/19/21 Date of admission: 12/19/21 Chief complaint: Dyspnea Respiratory distress History of present illness: 71-year-old male with history of hypertension, CHF, end-stage severities on dialysis Sunday and Sunday presenting with complaint of shortness of breath beginning yesterday. Last dialysis session was Sunday. In the emergency room patient BUN is 113, creatinine 15.2 and potassium 5.1 Chest x-ray findings show pulmonary edema. EKG shows ventricular paced rhythm. Patient placed on BiPAP for increased work of breathing. case discussed the case with on-call commissioner of internal revenue Dr. Milton who will evaluate in the morning to arrange for dialysis. Past History Past Medical History: ESRD, heart failure, hypertension, renal failure Past Surgical History: No surgical history Social history: no significant social history Family history: hypertension Medications and Allergies Allergies Allergy/AdvReac Type Severity Reaction Status Date / Time No Known Allergies Allergy Unverified 12/19/21 19:23 Active Meds: Active Medications Acetaminophen (Acetaminophen 325 Mg Tab) 650 mg PO Q4H PRN PRN Reason: Pain MILD(1-3)/Fever >100.5/CARREON Albuterol (Albuterol 2.5 Mg/3 Ml Nebu) 2.5 mg IH Q3HRT PRN PRN Reason: Shortness Of Breath Albuterol/Ipratropium (Ipratropium/Albuterol Sulfate 3 Ml Ampul.Neb) 1 ampul IH Q6HRT MAMIE Famotidine (Famotidine 20 Mg Tab) 20 mg PO BID MAMIE Morphine Sulfate (Morphine 2 Mg/1 Ml Inj) 2 mg IV Q4H PRN PRN Reason: Pain, Moderate (4-6) Morphine Sulfate (Morphine 4 Mg/1 Ml Inj) 4 mg IV Q4H PRN PRN Reason: Pain , Severe (7-10) Ondansetron HCl (Ondansetron 4 Mg/2 Ml Inj) 4 mg IV Q8H PRN PRN Reason: Nausea And Vomiting Sodium Chloride (Sodium Chloride 0.9% 10 Ml Flush Syringe) 10 ml IV BID MAMIE Sodium Chloride (Sodium Chloride 0.9% 10 Ml Flush Syringe) 10 ml IV PRN PRN PRN Reason: LINE FLUSH Review of Systems All systems: negative Cardiovascular: edema, shortness of breath, dyspnea on exertion Respiratory: shortness of breath, dyspnea on exertion Exam - Constitutional Vitals: Temp Pulse Resp BP Pulse Ox 97.6 F 100 H 41 H 159/50 100 12/19/21 19:18 12/19/21 20:01 12/19/21 20:01 12/19/21 21:01 12/19/21 21:01 General appearance: Present: no acute distress, well-nourished - EENT Eyes: Present: PERRL ENT: hearing intact, clear oral mucosa - Neck Neck: Present: supple, normal ROM - Respiratory Respiratory effort: normal Respiratory: bilateral: diminished - Cardiovascular Heart Sounds: Present: S1 & S2. Absent: rub, click - Extremities Extremities: pulses symmetrical, No edema Peripheral Pulses: within normal limits - Abdominal General gastrointestinal: Present: soft, non-tender, non-distended, normal bowel sounds Male genitourinary: Present: normal - Integumentary Integumentary: Present: clear, warm, dry - Musculoskeletal Musculoskeletal: gait normal, strength equal bilaterally - Psychiatric Psychiatric: appropriate mood/affect, intact judgment & insight - Neurologic Neurologic: CNII-XII intact, moves all extremities Results - Labs CBC & Chem 7: 12/19/21 20:16 12/19/21 20:16 Labs: Laboratory Last Values WBC 12.1 K/mm3 (4.5-11.0) H 12/19/21 20:16 RBC 2.99 M/mm3 (3.65-5.03) L 12/19/21 20:16 Hgb 8.8 gm/dl (11.8-15.2) L 12/19/21 20:16 Hct 27.8 % (35.5-45.6) L 12/19/21 20:16 MCV 93 fl (84-94) 12/19/21 20:16 MCH 29 pg (28-32) 12/19/21 20:16 MCHC 32 % (32-34) 12/19/21 20:16 RDW 14.9 % (13.2-15.2) 12/19/21 20:16 Plt Count 489 K/mm3 (140-440) H 12/19/21 20:16 Add Manual Diff Complete 12/19/21 20:16 Total Counted 100 12/19/21 20:16 Seg Neuts % (Manual) 88.0 % (40.0-70.0) H 12/19/21 20:16 Band Neutrophils % 1.0 % 12/19/21 20:16 Lymphocytes % (Manual) 9.0 % (13.4-35.0) L 12/19/21 20:16 Reactive Lymphs % (Man) 0 % 12/19/21 20:16 Monocytes % (Manual) 1.0 % (0.0-7.3) 12/19/21 20:16 Eosinophils % (Manual) 0 % (0.0-4.3) 12/19/21 20:16 Basophils % (Manual) 1.0 % (0.0-1.8) 12/19/21 20:16 Metamyelocytes % 0 % 12/19/21 20:16 Myelocytes % 0 % 12/19/21 20:16 Promyelocytes % 0 % 12/19/21 20:16 Blast Cells % 0 % 12/19/21 20:16 Nucleated RBC % Not Reportable 12/19/21 20:16 Seg Neutrophils # Man 10.6 K/mm3 (1.8-7.7) H 12/19/21 20:16 Band Neutrophils # 0.1 K/mm3 12/19/21 20:16 Lymphocytes # (Manual) 1.1 K/mm3 (1.2-5.4) L 12/19/21 20:16 Abs React Lymphs (Man) 0.0 K/mm3 12/19/21 20:16 Monocytes # (Manual) 0.1 K/mm3 (0.0-0.8) 12/19/21 20:16 Eosinophils # (Manual) 0.0 K/mm3 (0.0-0.4) 12/19/21 20:16 Basophils # (Manual) 0.1 K/mm3 (0.0-0.1) 12/19/21 20:16 Metamyelocytes # 0.0 K/mm3 12/19/21 20:16 Myelocytes # 0.0 K/mm3 12/19/21 20:16 Promyelocytes # 0.0 K/mm3 12/19/21 20:16 Blast Cells # 0.0 K/mm3 12/19/21 20:16 WBC Morphology Not Reportable 12/19/21 20:16 Hypersegmented Neuts Not Reportable 12/19/21 20:16 Hyposegmented Neuts Not Reportable 12/19/21 20:16 Hypogranular Neuts Not Reportable 12/19/21 20:16 Smudge Cells Not Reportable 12/19/21 20:16 Toxic Granulation Not Reportable 12/19/21 20:16 Toxic Vacuolation Not Reportable 12/19/21 20:16 Dohle Bodies Not Reportable 12/19/21 20:16 Pelger-Huet Anomaly Not Reportable 12/19/21 20:16 [place] Rods Not Reportable 12/19/21 20:16 Platelet Estimate Consistent w auto 12/19/21 20:16 Clumped Platelets Not Reportable 12/19/21 20:16 Plt Clumps, EDTA Not Reportable 12/19/21 20:16 Large Platelets Not Reportable 12/19/21 20:16 Giant Platelets Not Reportable 12/19/21 20:16 Platelet Satelliting Not Reportable 12/19/21 20:16 Plt Morphology Comment Not Reportable 12/19/21 20:16 RBC Morphology Not Reportable 12/19/21 20:16 Dimorphic RBCs Not Reportable 12/19/21 20:16 Polychromasia Not Reportable 12/19/21 20:16 Hypochromasia Not Reportable 12/19/21 20:16 Poikilocytosis Not Reportable 12/19/21 20:16 Anisocytosis Not Reportable 12/19/21 20:16 Microcytosis Not Reportable 12/19/21 20:16 Macrocytosis Not Reportable 12/19/21 20:16 Spherocytes Not Reportable 12/19/21 20:16 Pappenheimer Bodies Not Reportable 12/19/21 20:16 Sickle Cells Not Reportable 12/19/21 20:16 Target Cells Not Reportable 12/19/21 20:16 Tear Drop Cells Not Reportable 12/19/21 20:16 Ovalocytes Not Reportable 12/19/21 20:16 Helmet Cells Not Reportable 12/19/21 20:16 [place] Bodies Not Reportable 12/19/21 20:16 [place] Rings Not Reportable 12/19/21 20:16 [place] Cells Not Reportable 12/19/21 20:16 Bite Cells Not Reportable 12/19/21 20:16 Crenated Cell Not Reportable 12/19/21 20:16 Elliptocytes Not Reportable 12/19/21 20:16 Acanthocytes (Spur) Not Reportable 12/19/21 20:16 Rouleaux Not Reportable 12/19/21 20:16 Hemoglobin C Crystals Not Reportable 12/19/21 20:16 Schistocytes Not Reportable 12/19/21 20:16 Malaria parasites Not Reportable 12/19/21 20:16 Lang Bodies Not Reportable 12/19/21 20:16 Hem Pathologist Commnt No 12/19/21 20:16 ABG pH 7.390 pH Units (7.350-7.450) 12/19/21 22:05 ABG pCO2 38.3 mm Hg 12/19/21 22:05 ABG pO2 90.5 mm Hg (80.0-90.0) H 12/19/21 22:05 ABG HCO3 22.7 mmol/L (20.0-26.0) 12/19/21 22:05 ABG O2 Saturation 96.7 % (95.0-99.0) 12/19/21 22:05 ABG O2 Content 11.6 (0.0-44) 12/19/21 22:05 ABG Base Excess -2.1 mmol/L (-2.0-3.0) L 12/19/21 22:05 ABG Hemoglobin 8.5 gm/dl (14.0-18.0) L 12/19/21 22:05 ABG Carboxyhemoglobin 0.7 % (0.0-5.0) 12/19/21 22:05 ABG Methemoglobin 0.3 % (0.0-1.5) 12/19/21 22:05 Oxyhemoglobin 95.8 % (95.0-99.0) 12/19/21 22:05 FiO2 40 % 12/19/21 22:05 Sodium 143 mmol/L (137-145) 12/19/21 20:16 Potassium 5.1 mmol/L (3.6-5.0) H 12/19/21 20:16 Chloride 97.6 mmol/L (98-107) L 12/19/21 20:16 Carbon Dioxide 19 mmol/L (22-30) L 12/19/21 20:16 Anion Gap 32 mmol/L 12/19/21 20:16 BUN 113 mg/dL (9-20) H 12/19/21 20:16 Creatinine 15.0 mg/dL (0.8-1.3) H 12/19/21 20:16 Estimated GFR 4 ml/min 12/19/21 20:16 BUN/Creatinine Ratio 8 % 12/19/21 20:16 Glucose 131 mg/dL (75-100) H 12/19/21 20:16 Calcium 7.9 mg/dL (8.4-10.2) L 12/19/21 20:16 Total Bilirubin 0.30 mg/dL (0.1-1.2) 12/19/21 20:16 AST 27 units/L (5-40) 12/19/21 20:16 ALT 36 units/L (7-56) 12/19/21 20:16 Alkaline Phosphatase 80 units/L (35-129) 12/19/21 20:16 Total Protein 6.5 g/dL (6.3-8.2) 12/19/21 20:16 Albumin 3.9 g/dL (3.9-5) 12/19/21 20:16 Albumin/Globulin Ratio 1.5 % 12/19/21 20:16 - Imaging and Cardiology Chest x-ray: report reviewed Assessment and Plan VTE prophylaxis?: Mechanical Plan of care discussed with patient/family: Yes - Patient Problems (1) Pulmonary edema Current Visit: Yes Status: Acute Plan to address problem: Admit the patient to the medical telemetry. We will put the patient on BiPAP. DuoNeb via nebulizer every 4 hours. Albuterol via nebulizer every 4 hours as needed. Will consult nephrology for hemodialysis in the morning. Continue home medication. Recheck CBC BMP in the morning (2) Volume overload Current Visit: Yes Status: Acute Plan to address problem: Fluid restriction. We will put the patient on BiPAP. DuoNeb via nebulizer every 4 hours. Albuterol via nebulizer every 4 hours as needed. Will consult nephrology for hemodialysis in the morning. Continue home medication. Recheck CBC (3) ESRD (end stage renal disease) on dialysis Current Visit: Yes Status: Acute Plan to address problem: Will consult nephrology for hemodialysis in the morning. Continue home medication. Recheck CBC (4) HTN (hypertension) Current Visit: Yes Status: Acute Plan to address problem: Diltiazem 10 mg IV every 6 hours as needed. We continue the home medication. We will monitor the blood pressure closely (5) Hyperkalemia Current Visit: Yes Status: Acute Plan to address problem: We will monitor the patient closely. Patient will go for hemodialysis in the morning. Recheck BMP in the morning (6) DVT prophylaxis Current Visit: Yes Status: Acute Plan to address problem: SCD for DVT prophylaxis. Pepcid 20 mg p.o. twice daily for GI prophylaxis. Patient is a full code
[2021-12-19] MEDS ORDERED: SODIUM CHLORIDE 0.9% 100 ML IV PRN (22:40)
[2021-12-20] MEDS: IPRATROPIUM/ALBUTEROL SULFATE 3 ML AMPUL.NEB IH SCH ×4 (01:30→21:09)
[2021-12-20 06:00] LABS: Hematocrit 26.3 % (35.5-45.6); Hemoglobin 8.3 gm/dl (11.8-15.2); Mean Corpuscular HGB Conc 32 % (32-34); Mean Corpuscular Volume 92 fl (84-94); Platelet Count 428 K/mm3 (140-440); Red Blood Count 2.87 M/mm3 (3.65-5.03); Red Cell Distribution Width 15.3 % (13.2-15.2)
[2021-12-20 06:16] LABS: Calcium 7.5 mg/dL (8.4-10.2)
[2021-12-20 06:50] LABS: Band Neutrophils # (Manual) 0.2 K/mm3; Basophils % (Manual) 0 % (0.0-1.8); Total Cells Counted 100
[2021-12-20 06:51] LABS: Platelet Estimate Consistent w Auto
--- NOTE | 2021-12-20 08:38 | Consultation ---
History of Present Illness - Reason for Consult Consult date: 12/20/21 end stage renal disease Requesting physician: NHI PALM - History of Present Illness 71-year-old male with a history of hypertension, failure end-stage renal disease on hemodialysis on a Sunday, and Sunday schedule. He also has a history of heart failure. Presents on account of worsening shortness of breath. His last dialysis was on Sunday. He denies excessive intake of sodium or fluids. On presentation patient was found to have increased work of breathing placed on BiPAP. He admits to cough productive of sputum. No fever or chills. No chest pain. Does admit to lower extremity swelling. No chondral symptoms and was admitted and we are consulted to provide dialysis to manage fluid and electrolyte abnormalities. 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) Family history: hypertension Medications and Allergies Allergies Allergy/AdvReac Type Severity Reaction Status Date / Time No Known Allergies Allergy Unverified 12/19/21 19:23 Active Meds: Active Medications Acetaminophen (Acetaminophen 325 Mg Tab) 650 mg PO Q4H PRN PRN Reason: Pain MILD(1-3)/Fever >100.5/CARREON Albuterol (Albuterol 2.5 Mg/3 Ml Nebu) 2.5 mg IH Q3HRT PRN PRN Reason: Shortness Of Breath Albuterol/Ipratropium (Ipratropium/Albuterol Sulfate 3 Ml Ampul.Neb) 1 ampul IH Q6HRT [facility] Last Admin: 12/20/21 01:30 Dose: 1 ampul Famotidine (Famotidine 20 Mg Tab) 20 mg PO QAM [facility] Sodium Chloride (Nacl 0.9%) 100 mls @ 999 mls/hr IV RADHA PRN PRN Reason: Hypotension Morphine Sulfate (Morphine 2 Mg/1 Ml Inj) 2 mg IV Q4H PRN PRN Reason: Pain, Moderate (4-6) Morphine Sulfate (Morphine 4 Mg/1 Ml Inj) 4 mg IV Q4H PRN PRN Reason: Pain , Severe (7-10) Ondansetron HCl (Ondansetron 4 Mg/2 Ml Inj) 4 mg IV Q8H PRN PRN Reason: Nausea And Vomiting Pneumococcal Polyvalent Vaccine (Pneumococcal 23 Valent 0.5 Ml Vial) 0.5 ml IM .ONCE ONE Stop: 12/21/21 12:01 Sodium Chloride (Sodium Chloride 0.9% 10 Ml Flush Syringe) 10 ml IV BID MAMIE Sodium Chloride (Sodium Chloride 0.9% 10 Ml Flush Syringe) 10 ml IV PRN PRN PRN Reason: LINE FLUSH Review of Systems All systems: negative (Constitutional: no fever or chills. No anorexia or weight loss. HEENT: No sore throat or sinus drainage no hearing or vision impairment . Cardiovascular: No chest pain, shortness of breath, palpitations, lower extremity swelling or dizziness. Respiratory: No cough, sputum,) Respiratory: shortness of breath, no congestion, no wheezing, no pain on inspiration Gastrointestinal: no abdominal pain, no nausea, no vomiting, no diarrhea, no hematemesis, no coffee ground emesis Genitourinary Male: no dysuria, no hematuria, no urinary frequency, no urinary hesitancy Rectal: no pain, no bleeding Musculoskeletal: no neck stiffness, no neck pain, no muscle cramps, no myalgias Integumentary: no rash, no pruritis Neurological: no numbness, no tingling, no headaches, no convulsions Psychiatric: no change in libido Endocrine: no cold intolerance, no heat intolerance Allergic/Immunologic: no urticaria Exam - Vital Signs Vital signs: Vital Signs Temp Pulse Resp BP Pulse Ox 97.6 F 102 H 22 184/61 91 12/19/21 19:18 12/19/21 19:18 12/19/21 19:18 12/19/21 19:18 12/19/21 19:18 - Physical Exam Narrative exam: Elderly -[place] male lying in bed in no acute distress HEENT: NCAT, pink oral mucous membrane Neck: Supple, no venous distention CVS: S1S2 RRR with no murmur, rub or gallop Chest: Coarse breath sounds with diminished breath sounds in lower zones Abdomen: Normal distended, soft, nontender, no organomegaly, bowel sounds are present Extremities: Mild edema Genitourinary deferred Awake alert Neuro: Awake, alert no focal deficits Results - Lab Results 12/20/21 05:08 12/20/21 05:08 Most recent lab results ABG pH 7.390 pH Units (7.350-7.450) 12/19/21 22:05 ABG pCO2 38.3 mm Hg 12/19/21 22:05 ABG pO2 90.5 mm Hg (80.0-90.0) H 12/19/21 22:05 ABG HCO3 22.7 mmol/L (20.0-26.0) 12/19/21 22:05 ABG O2 Saturation 96.7 % (95.0-99.0) 12/19/21 22:05 Calcium 7.5 mg/dL (8.4-10.2) L 12/20/21 05:08 Assessment and Plan - Patient Problems (1) Metabolic acidosis Current Visit: Yes Status: Acute Plan to address problem: Expect improvement with dialysis. We will follow-up (2) Hypertensive chronic kidney disease with stage 5 chronic kidney disease or end stage renal disease Current Visit: Yes Status: Acute Plan to address problem: Follow-up blood pressure on current medications (3) ESRD (end stage renal disease) on dialysis Current Visit: Yes Status: Acute Plan to address problem: Hemodialysis today and then continue on a Sunday, and Sunday schedule (4) Hyperkalemia Current Visit: Yes Status: Acute Plan to address problem: Dialyze on a low potassium bath and then follow-up potassium
[2021-12-20] MEDS: FAMOTIDINE 20 MG TAB PO SCH (09:02)
--- NOTE | 2021-12-20 09:07 | Progress Note ---
Assessment and Plan Assessment and plan: HPI: 71-year-old male with a history of hypertension, failure end-stage renal disease on hemodialysis on a Sunday, and Sunday schedule. He also has a history of heart failure. Presents on account of worsening shortness of breath. His last dialysis was on Sunday. He denies excessive intake of sodium or fluids. On presentation patient was found to have increased work of breathing placed on BiPAP. He admits to cough productive of sputum. No fever or chills. No chest pain. Does admit to lower extremity swelling. No chondral symptoms and was admitted and we are consulted to provide dialysis to manage fluid and electrolyte abnormalities. 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 Plan: - currently on bipap due to pulmonary edema, wean as tolerated. - volume removal via HD, missed a few sessions of dialysis - nephrology following - trend K on serial renal profile - blood pressure control with home meds: hydralazine, imdur, lopressor, procardia. - restart asa and atorvastatin - will follow for improvement. anticipate d/c tomorrow. The high probability of a clinically significant, sudden or life threatening deterioration of the [multi] system(s) required my full and direct attention, intervention and personal management. The aggregate critical care time was [60] minutes. This time is in addition to time spent performing reported procedures but includes the following: [x] Data Review and interpretation [x] Patient assessment and monitoring of vital signs [x] Documentation [x] Medication orders and management History Interval history: No acute complaints. Patient seen and evaluated at bedside encounter and stated that BiPAP was helping his breathing. He did not appear to be in any distress. States that he has missed a few dialysis sessions. Hospitalist Physical - Physical exam Narrative exam: Physical Exam: VITAL SIGNS: Reviewed. GENERAL: The patient appears normally developed, Vital signs as documented. Currently on BiPAP HEAD: No signs of head trauma. EYES: Pupils are equal. Extraocular motions intact. EARS: Hearing grossly intact. MOUTH: Oropharynx is normal. NECK: No adenopathy, no JVD. CHEST: Bibasilar rales CARDIAC: Regular rate and rhythm. S1 and S2, without murmurs, gallops, or rubs. VASCULAR: No Edema. Peripheral pulses normal and equal in all extremities. ABDOMEN: Soft, non tender and non distended. No rebound or guarding, and no masses palpated. Bowel Sounds normal. MUSCULOSKELETAL: Good range of motion of all major joints. Extremities without clubbing, cyanosis or edema. NEUROLOGIC EXAM: Alert and oriented x 4. no focal sensory or strength deficits. PSYCHIATRIC: Mood normal. SKIN: detail exam as documented in skin assessment - Constitutional Vitals: Temp Pulse Resp BP Pulse Ox 98.1 F 80 18 139/49 100 12/20/21 07:55 12/20/21 07:55 12/20/21 07:55 12/20/21 07:55 12/20/21 07:55 General appearance: Present: no acute distress, well-nourished Results - Labs CBC & Chem 7: 12/20/21 05:08 12/20/21 05:08 Labs: Laboratory Last Values WBC 11.8 K/mm3 (4.5-11.0) H 12/20/21 05:08 RBC 2.87 M/mm3 (3.65-5.03) L 12/20/21 05:08 Hgb 8.3 gm/dl (11.8-15.2) L 12/20/21 05:08 Hct 26.3 % (35.5-45.6) L 12/20/21 05:08 MCV 92 fl (84-94) 12/20/21 05:08 MCH 29 pg (28-32) 12/20/21 05:08 MCHC 32 % (32-34) 12/20/21 05:08 RDW 15.3 % (13.2-15.2) H 12/20/21 05:08 Plt Count 428 K/mm3 (140-440) 12/20/21 05:08 Add Manual Diff Complete 12/20/21 05:08 Total Counted 100 12/20/21 05:08 Seg Neuts % (Manual) 78.0 % (40.0-70.0) H 12/20/21 05:08 Band Neutrophils % 2.0 % 12/20/21 05:08 Lymphocytes % (Manual) 11.0 % (13.4-35.0) L 12/20/21 05:08 Reactive Lymphs % (Man) 0 % 12/20/21 05:08 Monocytes % (Manual) 3.0 % (0.0-7.3) 12/20/21 05:08 Eosinophils % (Manual) 2.0 % (0.0-4.3) 12/20/21 05:08 Basophils % (Manual) 0 % (0.0-1.8) 12/20/21 05:08 Metamyelocytes % 4.0 % 12/20/21 05:08 Myelocytes % 0 % 12/20/21 05:08 Promyelocytes % 0 % 12/20/21 05:08 Blast Cells % 0 % 12/20/21 05:08 Nucleated RBC % Not Reportable 12/20/21 05:08 Seg Neutrophils # Man 9.2 K/mm3 (1.8-7.7) H 12/20/21 05:08 Band Neutrophils # 0.2 K/mm3 12/20/21 05:08 Lymphocytes # (Manual) 1.3 K/mm3 (1.2-5.4) 12/20/21 05:08 Abs React Lymphs (Man) 0.0 K/mm3 12/20/21 05:08 Monocytes # (Manual) 0.4 K/mm3 (0.0-0.8) 12/20/21 05:08 Eosinophils # (Manual) 0.2 K/mm3 (0.0-0.4) 12/20/21 05:08 Basophils # (Manual) 0.0 K/mm3 (0.0-0.1) 12/20/21 05:08 Metamyelocytes # 0.5 K/mm3 12/20/21 05:08 Myelocytes # 0.0 K/mm3 12/20/21 05:08 Promyelocytes # 0.0 K/mm3 12/20/21 05:08 Blast Cells # 0.0 K/mm3 12/20/21 05:08 WBC Morphology Not Reportable 12/20/21 05:08 Hypersegmented Neuts Not Reportable 12/20/21 05:08 Hyposegmented Neuts Not Reportable 12/20/21 05:08 Hypogranular Neuts Not Reportable 12/20/21 05:08 Smudge Cells Not Reportable 12/20/21 05:08 Toxic Granulation Not Reportable 12/20/21 05:08 Toxic Vacuolation Not Reportable 12/20/21 05:08 Dohle Bodies Not Reportable 12/20/21 05:08 Pelger-Huet Anomaly Not Reportable 12/20/21 05:08 [place] Rods Not Reportable 12/20/21 05:08 Platelet Estimate Consistent w auto 12/20/21 05:08 Clumped Platelets Not Reportable 12/20/21 05:08 Plt Clumps, EDTA Not Reportable 12/20/21 05:08 Large Platelets Not Reportable 12/20/21 05:08 Giant Platelets Not Reportable 12/20/21 05:08 Platelet Satelliting Not Reportable 12/20/21 05:08 Plt Morphology Comment Not Reportable 12/20/21 05:08 RBC Morphology Not Reportable 12/20/21 05:08 Dimorphic RBCs Not Reportable 12/20/21 05:08 Polychromasia Not Reportable 12/20/21 05:08 Hypochromasia Not Reportable 12/20/21 05:08 Poikilocytosis Not Reportable 12/20/21 05:08 Anisocytosis Not Reportable 12/20/21 05:08 Microcytosis Not Reportable 12/20/21 05:08 Macrocytosis Not Reportable 12/20/21 05:08 Spherocytes Not Reportable 12/20/21 05:08 Pappenheimer Bodies Not Reportable 12/20/21 05:08 Sickle Cells Not Reportable 12/20/21 05:08 Target Cells Not Reportable 12/20/21 05:08 Tear Drop Cells Not Reportable 12/20/21 05:08 Ovalocytes Not Reportable 12/20/21 05:08 Helmet Cells Not Reportable 12/20/21 05:08 [place] Bodies Not Reportable 12/20/21 05:08 [place] Rings Not Reportable 12/20/21 05:08 Hilliard Cells Not Reportable 12/20/21 05:08 Bite Cells Not Reportable 12/20/21 05:08 Crenated Cell Not Reportable 12/20/21 05:08 Elliptocytes Not Reportable 12/20/21 05:08 Acanthocytes (Spur) Not Reportable 12/20/21 05:08 Rouleaux Not Reportable 12/20/21 05:08 Hemoglobin C Crystals Not Reportable 12/20/21 05:08 Schistocytes Not Reportable 12/20/21 05:08 Malaria parasites Not Reportable 12/20/21 05:08 Lang Bodies Not Reportable 12/20/21 05:08 Hem Pathologist Commnt No 12/20/21 05:08 ABG pH 7.390 pH Units (7.350-7.450) 12/19/21 22:05 ABG pCO2 38.3 mm Hg 12/19/21 22:05 ABG pO2 90.5 mm Hg (80.0-90.0) H 12/19/21 22:05 ABG HCO3 22.7 mmol/L (20.0-26.0) 12/19/21 22:05 ABG O2 Saturation 96.7 % (95.0-99.0) 12/19/21 22:05 ABG O2 Content 11.6 (0.0-44) 12/19/21 22:05 ABG Base Excess -2.1 mmol/L (-2.0-3.0) L 12/19/21 22:05 ABG Hemoglobin 8.5 gm/dl (14.0-18.0) L 12/19/21 22:05 ABG Carboxyhemoglobin 0.7 % (0.0-5.0) 12/19/21 22:05 ABG Methemoglobin 0.3 % (0.0-1.5) 12/19/21 22:05 Oxyhemoglobin 95.8 % (95.0-99.0) 12/19/21 22:05 FiO2 40 % 12/19/21 22:05 Sodium 145 mmol/L (137-145) 12/20/21 05:08 Potassium 5.6 mmol/L (3.6-5.0) H 12/20/21 05:08 Chloride 100.6 mmol/L (98-107) 12/20/21 05:08 Carbon Dioxide 20 mmol/L (22-30) L 12/20/21 05:08 Anion Gap 30 mmol/L 12/20/21 05:08 BUN 123 mg/dL (9-20) H 12/20/21 05:08 Creatinine 15.2 mg/dL (0.8-1.3) H 12/20/21 05:08 Estimated GFR 4 ml/min 12/20/21 05:08 BUN/Creatinine Ratio 8 % 12/20/21 05:08 Glucose 90 mg/dL (75-100) 12/20/21 05:08 Calcium 7.5 mg/dL (8.4-10.2) L 12/20/21 05:08 Total Bilirubin 0.30 mg/dL (0.1-1.2) 12/19/21 20:16 AST 27 units/L (5-40) 12/19/21 20:16 ALT 36 units/L (7-56) 12/19/21 20:16 Alkaline Phosphatase 80 units/L (35-129) 12/19/21 20:16 Total Protein 6.5 g/dL (6.3-8.2) 12/19/21 20:16 Albumin 3.9 g/dL (3.9-5) 12/19/21 20:16 Albumin/Globulin Ratio 1.5 % 12/19/21 20:16 Garcia/IV: Voiding Method Urinal Active Medications - Current Medications Current Medications: Generic Name Dose Route Start Last Admin Trade Name Freq PRN Reason Stop Dose Admin Acetaminophen 650 mg 12/19/21 22:27 Acetaminophen 325 Mg Tab PO Q4H PRN Pain MILD(1-3)/Fever >100.5/CARREON Albuterol 2.5 mg 12/19/21 22:27 Albuterol 2.5 Mg/3 Ml Nebu IH Q3HRT PRN Shortness Of Breath Albuterol/Ipratropium 1 ampul 12/20/21 02:00 12/20/21 01:30 Ipratropium/Albuterol Sulfate 3 Ml Ampul.Neb IH 1 ampul Q6HRT MAMIE Administration Famotidine 20 mg 12/20/21 10:00 12/20/21 09:02 Famotidine 20 Mg Tab PO 20 mg QAM MAMIE Administration Sodium Chloride 100 mls @ 999 mls/hr 12/19/21 22:40 Nacl 0.9% IV RADHA PRN Hypotension Morphine Sulfate 2 mg 12/19/21 22:27 Morphine 2 Mg/1 Ml Inj IV Q4H PRN Pain, Moderate (4-6) Morphine Sulfate 4 mg 12/19/21 22:27 Morphine 4 Mg/1 Ml Inj IV Q4H PRN Pain , Severe (7-10) Ondansetron HCl 4 mg 12/19/21 22:27 Ondansetron 4 Mg/2 Ml Inj IV Q8H PRN Nausea And Vomiting Pneumococcal Polyvalent Vaccine 0.5 ml 12/21/21 12:00 Pneumococcal 23 Valent 0.5 Ml Vial IM 12/21/21 12:01 .ONCE ONE Sodium Chloride 10 ml 12/20/21 10:00 12/20/21 09:02 Sodium Chloride 0.9% 10 Ml Flush Syringe IV 10 ml BID MAMIE Administration Sodium Chloride 10 ml 12/19/21 22:27 Sodium Chloride 0.9% 10 Ml Flush Syringe IV PRN PRN LINE FLUSH
--- NOTE | 2021-12-20 09:34 | Electrocardiograph Report ---
[facility] Test Date: 2021-12-19 Test Time: 19:40:19 Pat Name: STEVEN RHODES Department: Room: A487 1 Gender: M [employer]: TOMMY : 1950 Requested By: MARY FLEMING Order Number: [id number] Reading MD: German Kinney Measurements Intervals Ramona Rate: 106 P: 0 WI: 29 QRS: 51 QRSD: 112 T: 54 QT: 410 QTc: 544 Interpretive Statements repeat ekg, junctional tachy vs afib Repol abnrm suggests ischemia, diffuse leads nonspecific st-tble for comparison Electronically Signed On 12-20-2021 9:33:58 EDT by German Kinney
[2021-12-20] MEDS: METOPROLOL TARTRATE 25 MG TAB PO SCH ×3 (17:55→21:28)
[2021-12-20] MEDS: TAMSULOSIN 0.4 MG CAP PO SCH (17:55)
[2021-12-20] MEDS: ASPIRIN EC 81 MG TAB PO SCH (17:55)
[2021-12-20] MEDS: NIFEdipine XL 60 MG TAB PO SCH (17:55)
[2021-12-20] MEDS: hydrALAZINE 100 MG TAB PO SCH (21:27)
[2021-12-21] MEDS: IPRATROPIUM/ALBUTEROL SULFATE 3 ML AMPUL.NEB IH SCH ×2 (03:29→08:00)
[2021-12-21 06:06] LABS: Calcium 7.1 mg/dL (8.4-10.2)
[2021-12-21] MEDS: TAMSULOSIN 0.4 MG CAP PO SCH (11:01)
[2021-12-21] MEDS: FAMOTIDINE 20 MG TAB PO SCH (11:01)
[2021-12-21] MEDS: ASPIRIN EC 81 MG TAB PO SCH (11:01)
[2021-12-21] MEDS: NIFEdipine XL 60 MG TAB PO SCH (11:02)
[2021-12-21] MEDS: METOPROLOL TARTRATE 25 MG TAB PO SCH (11:02)
[2021-12-21] MEDS: hydrALAZINE 100 MG TAB PO SCH (11:03)
[2021-12-21] MEDS ORDERED: PNEUMOCOCCAL 23 Valent 0.5 ML VIAL IM ONE (12:00)
[2021-12-21 12:14] VITALS: BP 108/37
--- NOTE | 2021-12-21 12:48 | Discharge Summary ---
Providers - Providers Date of Admission: 12/19/21 22:27 Date of discharge: 12/21/21 Attending physician: NHI PALM MD 12/19/21 22:27 Consult to Physician [CONS] Routine Comment: Consulting Provider: ANDRÉS MAURICIO Physician Instructions: Reason For Exam: esrd Primary care physician: GLASS HANDLER Hospitalization Reason for admission: shortness of breath Condition: Stable Hospital course: HPI: 71-year-old male with a history of hypertension, failure end-stage renal disease on hemodialysis on a Sunday, and Sunday schedule. He also has a history of heart failure. Presents on account of worsening shortness of breath. His last dialysis was on Sunday. He denies excessive intake of sodium or fluids. On presentation patient was found to have increased work of breathing placed on BiPAP. He admits to cough productive of sputum. No fever or chills. No chest pain. Does admit to lower extremity swelling. No chondral symptoms and was admitted and we are consulted to provide dialysis to manage fluid and electrolyte abnormalities. hospital course: on admission patient was found to have potassium of 5.1 and 5.6 subsequently. Nephrology consultation was made and patient underwent hemodialysis with subsequent improvement of metabolic markers. Potassium normalized to 4.4. Creatinine 9.2. Patient was admitted for acute hypoxic respiratory failure secondary to acute pulmonary edema from volume overload as a result of missed hemodialysis. Patient was initially on BiPAP for pulmonary support however this was de-escalated to nasal cannula and subsequently room air after HD was completed. He will be discharged today and be given instructions to follow up with OP nephrology/remain complaint on HD. medications transmitted to [facility]. Assessment and plan #Acute hypoxic respiratory failure #Acute Pulmonary edema #Volume overload #ESRD on HD #Hypertensive chronic kidney disease with stage V chronic kidney disease dialysis #Metabolic Acidosis #Hypertension #Hyperkalemia #CAD #HLD #BPH #Advance care planning Disease education conducted, care plan discussed, diagnoses discussed, prognosis discussed, patient is full code, patient acknowledges understanding and agree with care plan, +30 minutes. Disposition: 01 HOME / SELF CARE / HOMELESS Final Discharge Diagnosis (Prints w/discharge instructions): #Acute hypoxic respiratory failure. #Acute Pulmonary edema. #Volume overload. #ESRD on HD. #Hypertensive chronic kidney disease with stage V chronic kidney disease dialysis. #Metabolic Acidosis. #Hypertension. #Hyperkalemia. #CAD. #HLD. #BPH Time spent for discharge: 35 Core Measure Documentation - Palliative Care Palliative Care/ Comfort Measures: Not Applicable - Core Measures Any of the following diagnoses?: none Exam - Physical Exam Narrative exam: Physical Exam: VITAL SIGNS: Reviewed. GENERAL: The patient appears normally developed, Vital signs as documented. Off bipap HEAD: No signs of head trauma. EYES: Pupils are equal. Extraocular motions intact. EARS: Hearing grossly intact. MOUTH: Oropharynx is normal. NECK: No adenopathy, no JVD. CHEST: Bibasilar rales CARDIAC: Regular rate and rhythm. S1 and S2, without murmurs, gallops, or rubs. VASCULAR: No Edema. Peripheral pulses normal and equal in all extremities. ABDOMEN: Soft, non tender and non distended. No rebound or guarding, and no masses palpated. Bowel Sounds normal. MUSCULOSKELETAL: Good range of motion of all major joints. Extremities without clubbing, cyanosis or edema. NEUROLOGIC EXAM: Alert and oriented x 4. no focal sensory or strength deficits. PSYCHIATRIC: Mood normal. SKIN: detail exam as documented in skin assessment - Constitutional Vitals: Temp Pulse Resp BP Pulse Ox 98.3 F 74 22 108/37 97 12/21/21 11:21 12/21/21 11:21 12/21/21 11:26 12/21/21 11:21 12/21/21 11:26 Plan Prescriptions: AtorvaSTATin [Lipitor] 20 mg PO QHS 90 Days #90 tablet hydrALAZINE [Apresoline TAB] 100 mg PO TID 90 Days #270 tab Tamsulosin [Flomax] 0.4 mg PO DAILY 90 Days #90 cap Aspirin EC [Halfprin EC] 81 mg PO QDAY 90 Days #90 tablet ISOSORBIDE MONOnitrate [Imdur ER] 30 mg PO QDAY 30 Days #30 tablet Metoprolol [Lopressor TAB] 25 mg PO BID 90 Days #180 tablet NIFEdipine XL [Procardia Xl] 60 mg PO QDAY 90 Days #90 tablet
--- NOTE | 2021-12-21 16:48 | Progress Note ---
Assessment and Plan - Patient Problems (1) ESRD (end stage renal disease) on dialysis Current Visit: Yes Status: Acute Plan to address problem: Hemodialysis on a Sunday, and Sunday schedule. Okay to discharge home from renal perspective. Follow-up at the outpatient dialysis clinic tomorrow. (2) Hyperkalemia Current Visit: Yes Status: Acute Plan to address problem: Improved with dialysis. Needs to keep to to low potassium diet and adhere to dialysis treatment regimen (3) Metabolic acidosis Current Visit: Yes Status: Acute Plan to address problem: Improved with dialysis. (4) Hypertensive chronic kidney disease with stage 5 chronic kidney disease or end stage renal disease Current Visit: Yes Status: Acute Plan to address problem: Follow-up blood pressure on current medications Subjective Date of service: 12/21/21 Principal diagnosis: End-stage renal disease with fluid overload Interval history: Patient seen sitting on a chair in his room. He has no. No chest pain or shortness. No nausea or vomiting. No diarrhea Objective - Exam Narrative Exam: Elderly -Serbian male lying in bed in no acute distress HEENT: NCAT, pink oral mucous membrane Neck: Supple, no venous distention CVS: S1S2 RRR with no murmur, rub or gallop Chest: Coarse breath sounds with diminished breath sounds in lower zones Abdomen: Normal distended, soft, nontender, no organomegaly, bowel sounds are present Extremities: Mild edema Genitourinary deferred Awake alert Neuro: Awake, alert no focal deficits - Vital Signs Vital signs: Vital Signs - 12hr 12/21/21 12/21/21 12/21/21 07:40 11:21 11:26 Temperature 98.3 F 98.3 F Pulse Rate 68 74 Respiratory 18 18 22 Rate Blood Pressure 126/39 108/37 O2 Sat by Pulse 95 94 97 Oximetry - Lab 12/20/21 05:08 12/21/21 05:20 Most recent lab results ABG pH 7.390 pH Units (7.350-7.450) 12/19/21 22:05 ABG pCO2 38.3 mm Hg 12/19/21 22:05 ABG pO2 90.5 mm Hg (80.0-90.0) H 12/19/21 22:05 ABG HCO3 22.7 mmol/L (20.0-26.0) 12/19/21 22:05 ABG O2 Saturation 96.7 % (95.0-99.0) 12/19/21 22:05 Calcium 7.1 mg/dL (8.4-10.2) L 12/21/21 05:20 Medications & Allergies - Medications Allergies/Adverse Reactions: Allergies No Known Allergies Allergy (Verified 12/20/21 12:51) Home Medications: Home Medications Medication Instructions Recorded Confirmed Last Taken Type oxyCODONE /ACETAMINOPHEN [Percocet 1 tab PO Q6HR PRN 06/01/21 12/20/21 05/31/21 08:00 History 5/325 mg] sevelamer HCL [Sevelamer HCl] 800 mg PO TIDAC 06/01/21 12/20/21 05/31/21 14:00 History diphenhydrAMINE [Benadryl CAP] 25 mg PO Q6H PRN 3 Days #12 capsule 06/02/21 12/20/21 Unknown Rx Albuterol Mdi (or & Nicu Only) 2 puff IH QID PRN #8.5 gram 11/26/21 12/20/21 Unknown Rx [ProAir HFA Inhaler] Dexamethasone 6 mg PO DAILY #10 tab 12/14/21 12/20/21 Unknown Rx Sevelamer Carbonate [Renvela] 800 mg PO TIDAC tablet 12/14/21 12/20/21 Unknown Rx Aspirin EC [Halfprin EC] 81 mg PO QDAY 90 Days #90 tablet 12/21/21 Unknown Rx AtorvaSTATin [Lipitor] 20 mg PO QHS 90 Days #90 tablet 12/21/21 Unknown Rx ISOSORBIDE MONOnitrate [Imdur ER] 30 mg PO QDAY 30 Days #30 tablet 12/21/21 Unknown Rx Metoprolol [Lopressor TAB] 25 mg PO BID 90 Days #180 tablet 12/21/21 Unknown Rx NIFEdipine XL [Procardia Xl] 60 mg PO QDAY 90 Days #90 tablet 12/21/21 Unknown Rx Tamsulosin [Flomax] 0.4 mg PO DAILY 90 Days #90 cap 12/21/21 Unknown Rx hydrALAZINE [Apresoline TAB] 100 mg PO TID 90 Days #270 tab 12/21/21 Unknown Rx Active Medications: Generic Name Dose Route Start Last Admin Trade Name Freq PRN Reason Stop Dose Admin Acetaminophen 650 mg 12/19/21 22:27 Acetaminophen 325 Mg Tab PO Q4H PRN Pain MILD(1-3)/Fever >100.5/CARREON Albuterol 2.5 mg 12/19/21 22:27 Albuterol 2.5 Mg/3 Ml Nebu IH Q3HRT PRN Shortness Of Breath Albuterol/Ipratropium 1 ampul 12/20/21 02:00 12/21/21 03:29 Ipratropium/Albuterol Sulfate 3 Ml Ampul.Neb IH 1 ampul Q6HRT MAMIE Administration Aspirin 81 mg 12/20/21 15:00 12/21/21 11:01 Aspirin Ec 81 Mg Tab PO 81 mg QDAY [facility] Administration Atorvastatin Calcium 20 mg 12/20/21 22:00 12/20/21 21:22 Atorvastatin 20 Mg Tab PO 20 mg QHS [facility] Administration Famotidine 20 mg 12/20/21 10:00 12/21/21 11:01 Famotidine 20 Mg Tab PO 20 mg QAM [facility] Administration Hydralazine HCl 100 mg 12/20/21 20:00 12/21/21 11:03 Hydralazine 100 Mg Tab PO Not Given TID [facility] Sodium Chloride 100 mls @ 999 mls/hr 12/19/21 22:40 Nacl 0.9% IV RADHA PRN Hypotension Isosorbide Mononitrate 30 mg 12/20/21 15:00 12/21/21 11:02 Isosorbide Mononitrate Er 30 Mg Tab PO Not Given QDAY [facility] Metoprolol Tartrate 25 mg 12/20/21 15:00 12/21/21 11:02 Metoprolol Tartrate 25 Mg Tab PO Not Given BID [facility] Morphine Sulfate 2 mg 12/19/21 22:27 Morphine 2 Mg/1 Ml Inj IV Q4H PRN Pain, Moderate (4-6) Morphine Sulfate 4 mg 12/19/21 22:27 Morphine 4 Mg/1 Ml Inj IV Q4H PRN Pain , Severe (7-10) Nifedipine 60 mg 12/20/21 15:00 12/21/21 11:02 Nifedipine Xl 60 Mg Tab PO Not Given QDAY [facility] Ondansetron HCl 4 mg 12/19/21 22:27 Ondansetron 4 Mg/2 Ml Inj IV Q8H PRN Nausea And Vomiting Sodium Chloride 10 ml 12/20/21 10:00 12/21/21 11:02 Sodium Chloride 0.9% 10 Ml Flush Syringe IV 10 ml BID MAMIE Administration Sodium Chloride 10 ml 12/19/21 22:27 Sodium Chloride 0.9% 10 Ml Flush Syringe IV PRN PRN LINE FLUSH Tamsulosin HCl 0.4 mg 12/20/21 15:00 12/21/21 11:01 Tamsulosin 0.4 Mg Cap PO 0.4 mg DAILY MAMIE Administration
== END 2021-12-21 16:30 | disposition home or self-care (01) | DRG 189 ==
LOC: ED 19:09 → MERGE 22:27 → 4A 22:27
PROVIDERS: ADMIT Hospitalist; ATTEND Internal Medicine
PROC: 4A033R1 Measurement of Arterial Saturation, Peripheral, Percutaneous Approach (ICD-10-PCS; principal; 2021-12-19)
PROC: 5A09457 Assistance with Respiratory Ventilation, 24-96 Consecutive Hours, Continuous Positive Airway Pressure (ICD-10-PCS; 2021-12-19)
PROC: 5A1D70Z Performance of Urinary Filtration, Intermittent, Less than 6 Hours Per Day (ICD-10-PCS; 2021-12-20)
DX: J96.01 Acute respiratory failure with hypoxia (principal); N18.6 End stage renal disease; J81.1 Chronic pulmonary edema; E87.2 Acidosis; I13.2 Hypertensive heart and chronic kidney disease with heart failure and with stage 5 chronic kidney disease, or end stage renal disease; E87.5 Hyperkalemia; Z99.2 Dependence on renal dialysis; I50.9 Heart failure, unspecified; I25.10 Atherosclerotic heart disease of native coronary artery without angina pectoris; N40.0 Benign prostatic hyperplasia without lower urinary tract symptoms; E78.5 Hyperlipidemia, unspecified; Z82.49 Family history of ischemic heart disease and other diseases of the circulatory system
CPT/HCPCS: 36415; 36600; 71045; 80048; 80053; 82803; 82962; 85007; 85025; 93005; 94640; 94660; G0378